=== PATIENT | male | born 1950 | race Hispanic/Latino ===

== ENCOUNTER 2016-10-22 09:58 | Emergency (ER) | payer BC, MEDICARE ==
[2016-10-22 09:59] VITALS: BMI 29.6
[2016-10-22 10:19] VITALS: TEMP 97.6
[2016-10-22] MEDS ORDERED: Oxycodone/Acetaminophen 5/325 mg Tab PO STA ×2 (10:38→11:56)
[2016-10-22 11:57] VITALS: BP 151/99; PULSE 78; RESP 20; O2SAT 96
--- NOTE | 2016-10-22 12:05 | ED PDOC ---
Arrival/HPI - General Chief Complaint: Trauma Time Seen by Provider: 10/22/16 10:17 Historian: Patient - History of Present Illness Narrative History of Present Illness (Text): 10/22/16 12:10 Patient reports injury to his left rib 4 days ago when he tried to ride a horse and fell off immediately. States that the pain is worse when taking a deep breath, with movement, and with palpation. Denies any head injury, LOC, nausea, vomiting, abdominal pain, shortness of breath, dyspnea, cough, fever, or any other injury. GREG Araiza Past Medical History - Provider Review Nursing Documentation Reviewed: Yes - Infectious Disease Hx of Infectious Diseases: None - Tetanus Immunization Tetanus Immunization: Unknown - Cardiac Hx Hypertension: Yes - Pulmonary Hx Respiratory Disorders: No - Neurological Other/Comment: diabetic neuropathy - HEENT Hx HEENT Disorder: No - Renal Hx Renal Disorder: No - Endocrine/Metabolic Hx Diabetes Mellitus Type 1: Yes - Hematological/Oncological Hx Blood Disorders: No - Integumentary Hx Dermatological Disorder: No - Musculoskeletal/Rheumatological Hx Musculoskeletal Disorders: No - Gastrointestinal Hx Gastrointestinal Disorders: No - Genitourinary/Gynecological Hx Genitourinary Disorders: No - Psychiatric Hx Psychophysiologic Disorder: No Hx Depression: No Hx Emotional Abuse: No Hx Physical Abuse: No Hx Substance Use: Yes - Surgical History Hx Orthopedic Surgery: Yes (right wrist) - Anesthesia Hx Anesthesia: Yes Hx Anesthesia Reactions: No Hx Malignant Hyperthermia: No - Suicidal Assessment Feels Threatened In Home Enviroment: No Family/Social History - Physician Review Nursing Documentation Reviewed: Yes Family/Social History: No Known Family HX Smoking Status: Former Smoker Hx Alcohol Use: No Hx Substance Use: Yes Substance used: Cocaine Hx Substance Use Treatment: No Allergies/Home Meds Allergies/Adverse Reactions: Allergies No Known Allergies Allergy (Verified 10/22/16 10:19) Review of Systems - Review of Systems Constitutional: Normal. absent: Fatigue, Weight Change, Fevers Respiratory: Normal. absent: SOB, Cough Cardiovascular: Normal, Chest Pain. absent: Palpitations Gastrointestinal: Normal. absent: Abdominal Pain, Stool Changes Musculoskeletal: Normal. absent: Arthralgias, Back Pain Skin: Normal. absent: Rash, Skin Lesions Physical Exam - Physical Exam Narrative Physical Exam (Text): 10/22/16 12:09 GENERAL APPEARANCE: Patient is awake, alert, oriented x 3, in moderate painful distress. SKIN: Warm, dry; (-) cyanosis. HEAD: (-) swelling and tenderness, with no palpable bony defect. EYES: (-) conjunctival pallor, (-) scleral icterus, (-) nystagmus. ENMT: Mucous membranes moist. (-) Cardona's sign. TMs: (-) blood. Nose: (- ) tenderness, (-) rhinorrhea. No oral trauma. Pharynx clear. Airway patent: (-) stridor. Full ROM of mandible without pain. NECK: (-) tenderness, (-) stiffness, (-) lymphadenopathy. CHEST AND RESPIRATORY: (+) chest wall tenderness to the L lateral lower ribs, ( -) ecchymosis, (-) edema, (-) step offs. Lungs: (-) rales, (-) rhonchi, (-) wheezes; breath sounds equal bilaterally. HEART AND CARDIOVASCULAR: (-) irregularity; (-) murmur, (-) gallop. ABDOMEN AND GI: Soft; (-) tenderness. BACK: (-) tenderness. EXTREMITIES: (-) deformity, (-) tenderness, (-) limitation of motion NEURO AND PSYCH: GCS=15. Mental status as above. 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 EOMI. (-) facial asymmetry. Tongue and uvula midline. Strength 5/5 in all extremities. No gross sensory deficits. DTRs symmetric. Vital Signs Temp Pulse Resp BP Pulse Ox 10/22/16 11:56 78 20 151/99 H 96 10/22/16 11:30 75 18 152/63 H 99 10/22/16 10:19 97.6 F 78 17 156/65 H 99 10/22/16 10:15 96 Medical Decision Making ED Course and Treatment: 10/22/16 12:01 66 yo M presents with L rib injury 4 days ago. Plan: -- XR L ribs -- Percocet po XR L ribs: no fracture, no pneumothorax, as read by PA Patient advised that official radiology read of XR is still pending and will call the patient if there is any discrepancy within 24 hours. X-ray results with the patient and his in great detail. Based on history, exam and diagnostic results plan will be for outpatient follow-up. Prescription provided. Patient states he fully agrees with and understands discharge instructions. States that he agrees with the plan and disposition. Verbalized and repeated discharge instructions and plan. I have given the patient opportunity to ask any additional questions. Follow up with primary care physician in 1-2 days without fail. Advised to take medication as prescribed. Return to the emergency room at any time for any new or worsening symptoms. - RAD Interpretation Radiology Orders: 10/22/16 10:37 RIBS LEFT & PA CHEST [RAD] Stat - Medication Orders Current Medication Orders: Discontinued Medications Oxycodone/Acetaminophen (Percocet 5/325 Mg Tab) 1 tab PO STAT STA Stop: 10/22/16 10:39 Last Admin: 10/22/16 11:02 Dose: 1 TAB Oxycodone/Acetaminophen (Percocet 5/325 Mg Tab) 1 tab PO STAT STA Stop: 10/22/16 11:57 Last Admin: 10/22/16 12:05 Dose: 1 TAB - PA / PODIATRY DOCTOR / Resident Statement /DO has reviewed & agrees with the documentation as recorded. Disposition/Present on Arrival - Present on Arrival Any Indicators Present on Arrival: Yes History of DVT/PE: No History of Uncontrolled Diabetes: Yes Urinary Catheter: No History of Decub. Ulcer: No History Surgical Site Infection Following: None - Disposition Have Diagnosis and Disposition been Completed?: Yes Diagnosis: Contusion of rib on left side Disposition: HOME/ ROUTINE Disposition Time: 12:03 Patient Plan: Discharge Condition: STABLE Discharge Instructions (ExitCare): Rib Contusion (ED) Print Language: SUDANESE Additional Instructions: Thank you for letting us take care of you today. You were treated for L rib contusion. The emergency medical care you received today was directed at your acute symptoms. If you were prescribed any medication, please fill it and take as directed. It may take several days for your symptoms to resolve. Return to the Emergency Department if your symptoms worsen, do not improve, or if you have any other problems. Please contact your doctor in 2 days for re-evaluation and follow up. Bring any paperwork you were given at discharge with you along with any medications you are taking to your follow up visit. Our treatment cannot replace ongoing medical care by a primary care provider (PCP) outside of the emergency department. Thank you for allowing the [facility] team to be part of your care today. If you had an X-Ray : A Radiologist will review the ED reading if any change in treatment is needed we will contact you. Prescriptions: oxyCODONE/Acetaminophen [Percocet 5/325 mg Tab] 1 ea PO QID #16 tab Referrals: Teodora COTTON,Pedro Taveras MD [Primary Care Provider] - Follow up with primary Forms: WORK NOTE
--- NOTE | 2016-10-22 13:40 | RAD ---
PROCEDURE: Radiographs of the Chest and Left Ribs. HISTORY: trauma COMPARISON: None available. TECHNIQUE: Frontal radiograph of the chest and multiple oblique radiographs of the left ribs were obtained. FINDINGS: LEFT RIBS: No fracture or focal lesion visualized. LUNGS: Clear. PLEURA: No pneumothorax or pleural fluid. CARDIOVASCULAR: Normal sized heart. No pulmonary vascular congestion. OTHER FINDINGS: None. IMPRESSION: Unremarkable radiographs of the chest and left ribs. No left rib fracture.
== END 2016-10-22 12:10 | disposition home or self-care (01) ==
LOC: ED 09:58
DX: S20.212A Contusion of left front wall of thorax, initial encounter (principal); V80.010A Animal-rider injured by fall from or being thrown from horse in noncollision accident, initial encounter; Z79.4 Long term (current) use of insulin; Z87.891 Personal history of nicotine dependence; I10 Essential (primary) hypertension

== ENCOUNTER 2017-09-22 11:38 | Inpatient (IN) | payer MEDICARE ==
[2017-09-22] MEDS ORDERED: Metoprolol 1 mg/ml Inj IVP STA (12:05)
--- NOTE | 2017-09-22 12:15 | ED PDOC ---
Arrival/HPI - General Chief Complaint: Palpitations Time Seen by Provider: 09/22/17 11:41 Historian: Patient - History of Present Illness Narrative History of Present Illness (Text): 09/22/17 12:14 A 67 year old male, whose past medical history includes diabetes and hypertension, presents to the emergency department complaining of shortness of breath. Patient reports he went to PMD office, who stated patient had a fast heart beat and "skipping beats". PMD advised patient to come to the emergency department for further evaluation. Describes heart rate as fluttering, denies having these symptoms in the past, just intermittently this past week. Patient went to [facility] about a week ago for stress test and echo, has an appointment on 09/27/17 for results. Patient denies any chest pain, hematuria, hematochezia or any other complaints at this time. PMD: Dr. Araiza [facility]: Dr. Johnson Medications: Metformin, Lisinopril, Gabapentin, Glipizide Symptom Onset: Sudden Symptom Course: Unchanged Activities at Onset: Rest Context: Home Past Medical History - Provider Review Nursing Documentation Reviewed: Yes - Infectious Disease Hx of Infectious Diseases: None - Tetanus Immunization Tetanus Immunization: Unknown - Cardiac Hx Congestive Heart Failure: Yes Hx Hypertension: Yes - Pulmonary Hx Respiratory Disorders: No - Neurological Other/Comment: diabetic neuropathy - HEENT Hx HEENT Disorder: No - Renal Hx Renal Disorder: No - Endocrine/Metabolic Hx Diabetes Mellitus Type 1: Yes - Hematological/Oncological Hx Blood Disorders: No - Integumentary Hx Dermatological Disorder: No - Musculoskeletal/Rheumatological Hx Musculoskeletal Disorders: No - Gastrointestinal Hx Gastrointestinal Disorders: No - Genitourinary/Gynecological Hx Genitourinary Disorders: No - Psychiatric Hx Psychophysiologic Disorder: No Hx Depression: No Hx Emotional Abuse: No Hx Physical Abuse: No Hx Substance Use: Yes - Surgical History Hx Orthopedic Surgery: Yes (right wrist) - Anesthesia Hx Anesthesia: Yes Hx Anesthesia Reactions: No Hx Malignant Hyperthermia: No - Suicidal Assessment Feels Threatened In Home Enviroment: No Family/Social History - Physician Review Nursing Documentation Reviewed: Yes Family/Social History: No Known Family HX Smoking Status: Former Smoker Hx Alcohol Use: No Hx Substance Use: Yes Substance used: Cocaine Hx Substance Use Treatment: No Allergies/Home Meds Allergies/Adverse Reactions: Allergies No Known Allergies Allergy (Verified 10/22/16 10:19) Home Medications: Home Meds Medication Instructions Recorded Confirmed Gabapentin [Neurontin] 300 mg PO DAILY 08/28/17 09/22/17 GlipiZIDE [Glucotrol] 5 mg PO DAILY 08/28/17 09/22/17 Lisinopril [Zestril] 10 mg PO DAILY 08/28/17 09/22/17 metFORMIN [glucOPHAGE] 500 mg PO BID 08/28/17 09/22/17 Review of Systems - Physician Review All systems were reviewed & negative as marked: Yes - Review of Systems Cardiovascular: absent: Chest Pain Genitourinary Male: absent: Hematuria Physical Exam - Physical Exam Narrative Physical Exam (Text): 09/22/17 12:13 Constitutional: No acute distress. Head: Normocephalic. Atraumatic. Eyes: PERRL. ENT: Moist mucous membranes. Neck: Supple. Cardiovascular: tachycardic. irregular rhythm. Chest: No tenderness. Respiratory: Clear to auscultation bilaterally. GI: Soft. Nontender. Nondistended. Back: No CVA tenderness. Musculoskeletal: trace pitting edema b/l LE. Skin: No rash. Neurologic: Alert, no focal deficit. Vital Signs Reviewed: Yes Vital Signs Temp Pulse Resp BP Pulse Ox 09/22/17 12:23 105 H 18 131/62 95 09/22/17 12:18 132 H 118/85 09/22/17 11:51 97.7 F 124 H 22 116/85 94 L Appearance: Positive for: Well-Appearing, Non-Toxic, Comfortable Pain Distress: None Mental Status: Positive for: Alert and Oriented X 3 Medical Decision Making ED Course and Treatment: 09/22/17 12:13 Impression: A 67 year old male with shortness of breath. Plan: -- EKG -- Chest xray -- labs -- Reassess and disposition Prior Visits: Notes and results from previous visits were reviewed. Patient was last seen in the emergency department on 10/22/16 for evaluation of left rib injury and pain. Progress Notes: 09/22/17 12:53 EKG: Ordered, reviewed, and independently interpreted the EKG. Rate : 130 BPM Rhythm : a fib Interpretation : No ST elevations, right bundle branch block 09/22/17 13:01 chest xray- Creator : Sury Silvestre MD IMPRESSION: No active pulmonary disease. 09/22/17 13:06 Metoprolol 5 IV administered, rate improved to 105, oral dose administered. Dr. Johnson consult placed. Dr. Araiza accepts to his service. - Lab Interpretations Lab Results: 09/22/17 12:10 09/22/17 12:10 Lab Results 09/22/17 12:10: Sodium 139, Potassium 4.1, Chloride 99, Carbon Dioxide 24, Anion Gap 19, BUN 24 H, Creatinine 0.9, Est GFR ( Amer) > 60, Est GFR ( Non-Af Amer) > 60, Random Glucose 284 H, Calcium 9.9, Total Bilirubin 1.0, AST 42, ALT 82 H, Alkaline Phosphatase 90, Total Creatine Kinase 40, Troponin I < 0.01, NT-Pro-B Natriuret Pep 3150 H, Total Protein 7.5, Albumin 4.3, Globulin 3.2, Albumin/Globulin Ratio 1.4 09/22/17 12:10: PT 12.7 H, INR 1.10 H, APTT 30.5 09/22/17 12:10: WBC 10.8, RBC 4.86, Hgb 15.4, Hct 47.0, MCV 96.7, MCH 31.7, MCHC 32.8, RDW 12.3, Plt Count 196, MPV 13.3 H, Gran % 72.8 H, Lymph % (Auto) 19.6 L, Mora % (Auto) 6.7 H, Eos % (Auto) 0.7 L, Baso % (Auto) 0.2, Gran # 7.87 H, Lymph # (Auto) 2.1, Mora # (Auto) 0.7 H, Eos # (Auto) 0.1, Baso # (Auto) 0.02 I have reviewed the lab results: Yes - RAD Interpretation Radiology Orders: 09/22/17 12:02 CHEST PORTABLE [RAD] Stat - EKG Interpretation Interpreted by ED Physician: Yes Type: 12 lead EKG - Medication Orders Current Medication Orders: Discontinued Medications Enoxaparin Sodium (Lovenox) 70 mg SC STAT STA PRN Reason: Protocol Stop: 09/22/17 12:49 Metoprolol Tartrate (Lopressor) 5 mg IVP STAT STA Stop: 09/22/17 12:06 Last Admin: 09/22/17 12:18 Dose: 5 mg IVP Administration Document 09/22/17 12:18 EQ (Rec: 09/22/17 12:18 EQ [id number]) Charges for Administration # of IVP Administrations 1 MAR Pulse and Blood Pressure Document 09/22/17 12:18 EQ (Rec: 09/22/17 12:18 EQ [id number]) Pulse Pulse Rate (60-90) 132 Blood Pressure Blood Pressure (100/60-150/90) 118/85 Metoprolol Tartrate (Lopressor) 25 mg PO STAT STA Stop: 09/22/17 12:32 - Scribe Statement The provider has reviewed the documentation as recorded by the Dineshibreji Potts Provider Scribe Attestation: All medical record entries made by the Scribe were at my direction and personally dictated by me. I have reviewed the chart and agree that the record accurately reflects my personal performance of the history, physical exam, medical decision making, and the department course for this patient. I have also personally directed, reviewed, and agree with the discharge instructions and disposition. Disposition/Present on Arrival - Present on Arrival Any Indicators Present on Arrival: Yes History of DVT/PE: No History of Uncontrolled Diabetes: Yes Urinary Catheter: No History of Decub. Ulcer: No History Surgical Site Infection Following: None - Disposition Have Diagnosis and Disposition been Completed?: Yes Diagnosis: New onset atrial fibrillation Disposition: HOSPITALIZED Disposition Time: 12:57 Patient Plan: Admission, Telemetry Condition: FAIR Referrals: Teodora COTTON,Pedro Taveras MD [Primary Care Provider] - Follow up with primary Forms: [employer] (Yakut)
[2017-09-22 12:19] LABS: BASO # 0.02 K/mm3 (0.0-2.0); BASO % 0.2 % (0.0-3.0); EOS # 0.1 (0.0-0.7); EOS % 0.7 % (1.5-5.0); GRAN # 7.87 (1.4-6.5); GRAN % 72.8 % (50.0-68.0); HEMOGLOBIN 15.4 g/dL (14.0-18.0); LYMPH # 2.1 (1.2-3.4); LYMPH % 19.6 % (22.0-35.0); MEAN CELL VOLUME 96.7 fl (80.0-105.0); MEAN CORPUSCULAR HEMOGLOBIN 31.7 pg (25.0-35.0); MEAN CORPUSCULAR HGB CONC 32.8 g/dl (31.0-37.0); MEAN PLATELET VOLUME 13.3 fl (7.0-11.0); MONO # 0.7 (0.1-0.6); MONO % 6.7 % (1.0-6.0); RBC 4.86 10^6/uL (3.5-6.1); RED CELL DISTRIBUTION WIDTH 12.3 % (11.5-14.5); WHITE BLOOD COUNT 10.8 10^3/ul (4.5-11.0)
[2017-09-22 12:29] LABS: INR 1.1 (0.93-1.08); PARTIAL THROMBOPLASTIN TIME 30.5 Seconds (25.1-36.5); PROTHROMBIN TIME 12.7 SECONDS (9.4-12.5)
[2017-09-22 12:32] LABS: ALB/GLOB RATIO 1.4 (1.1-1.8); ALBUMIN 4.3 g/dL (3.0-4.8); ALT/SGPT 82 U/L (7-56); AST/SGOT 42 U/L (17-59); BLOOD UREA NITROGEN 24 mg/dL (7-21); CALCIUM 9.9 mg/dL (8.4-10.5); GFR AFRICAN-AMERICAN > 60; GFR NON-AFRICAN AMERICAN > 60
[2017-09-22 12:44] LABS: B-TYPE NATRIURETIC PEPTIDE 3150 pg/mL (0-450); TROPONIN I < 0.01 ng/mL
[2017-09-22] MEDS ORDERED: Enoxaparin 80 mg Syringe SC STA (12:48)
--- NOTE | 2017-09-22 12:59 | RAD ---
HISTORY: Palpitations COMPARISON: 08/10/2017. FINDINGS: LUNGS: The lungs are clear. PLEURA: No significant pleural effusion identified, no pneumothorax apparent. CARDIOVASCULAR: Normal. OSSEOUS STRUCTURES: No significant abnormalities. VISUALIZED UPPER ABDOMEN: Normal. OTHER FINDINGS: None. IMPRESSION: No active pulmonary disease.
--- NOTE | 2017-09-22 15:21 | CON ---
DATE: 09/22/2017 CARDIOLOGY CONSULTATION HISTORY OF PRESENT ILLNESS: The patient is a 67-year-old male who presents with progressive dyspnea for the past 2 weeks. No chest pain noted. The patient's past medical history includes a history of hypertension, diabetes mellitus and probable hypercholesterolemia. He is a long-time smoker of many years and stopped over the past couple of years. He was found to be in atrial fibrillation in the emergency room, which is new. SOCIAL HISTORY: The patient is a former heavy smoker. REVIEW OF SYSTEMS: Fourteen-point review of systems was reviewed in detail. Negative edema. Positive shortness of breath. Negative angina. No orthopnea. No PND. PHYSICAL EXAMINATION: VITAL SIGNS: Blood pressure is 131/62 with the heart rate is atrial fibrillation up to 130s. NECK: Negative JVD. LUNGS: Bilateral rhonchi. HEART: Reveals S1, S2. EXTREMITIES: Without edema. EKG shows atrial fibrillation with a right bundle-branch block and a left anterior hemiblock. LABORATORY DATA: BUN and creatinine 24 and 0.9. ProBNP is 3150. Hemoglobin is 15. ECHOCARDIOGRAM: Echocardiogram reveals a dilated left atrium, ejection fraction is 50%. The RVSP is 67 consistent with moderate pulmonary hypertension. Stress test that was performed in 08/2017 reveals no active ischemia with an EF of 51%. IMPRESSION: 1. New-onset atrial fibrillation. 2. Early cardiomyopathy. 3. Dyspnea. 4. Mild acute systolic congestive heart failure. 5. Diabetes mellitus. 6. Hypercholesterolemia. 7. Chronic obstructive pulmonary disease. PLAN: Given these findings, we will start the patient on Eliquis today. We will give a dose of Lasix given his elevated ProBNP and his dyspnea. We will start him on p.o. Cardizem to help control the heart rate. Alban Johnson MD
[2017-09-22 16:19] VITALS: BMI 24.3
[2017-09-22] MEDS ORDERED: Influenza Vaccine 60 mcg/0.5 mL SYR (4YR UP) IM ONE (16:19)
[2017-09-22] MEDS ORDERED: Pneumococcal 23-Valent Vaccine IM ONE (16:19)
[2017-09-23 06:21] VITALS: PULSE 93; RESP 20; TEMP 97.7; O2SAT 97
[2017-09-23 09:30] VITALS: BP 90/63
--- NOTE | 2017-09-23 09:37 | CARD ---
APPROVED REPORT EKG Measurement Heart [id number] <Conclusion> Atrial fibrillation with rapid ventricular response with premature ventricular or aberrantly conducted complexes Left axis deviation Right bundle branch block Inferior infarct, age undetermined Abnormal ECG
[2017-09-23] MEDS ORDERED: Insulin Reg-LOW-Coverage SC SCH (11:30)
--- NOTE | 2017-09-23 15:02 | PN ---
DATE: 09/23/2017 REASON FOR DICTATION: Covering Dr. Alban Johnson. REASON FOR CONSULTATION AND FOLLOWUP: AFib. SUBJECTIVE: Patient denies any chest pain, shortness of breath or any palpitation. OBJECTIVE: GENERAL: Not in apparent distress. VITAL SIGNS: As follows: Temperature afebrile, heart rate 92, blood pressure 103/73. HEENT: PERRLA. Extraocular muscles intact. NECK: Supple. No carotid bruit or thyromegaly. CHEST: Clear to auscultation. HEART: S1, S2 regular. ABDOMEN: Soft. EXTREMITIES: Clubbing and cyanosis negative. LABORATORY DATA: Blood workup as follows: WBC 10.6, hemoglobin 15.4, hematocrit 47.0, platelet count 196. Chemistry shows sodium 139, potassium 4.0, chloride 99, carbon dioxide 24, anion gap of 19, BUN 24, creatinine 0.9, troponin 0.01, BNP 3150. IMPRESSION: Atrial fibrillation, heavy ex-tobacco abuse, mild acute systolic dysfunction, mild cardiomyopathy, dyspnea, diabetes, hypertension, hyperlipidemia, chronic obstructive pulmonary disease. RECOMMENDATION: Continue metoprolol 25 b.i.d., continue Cardizem 60 mg t.i.d., continue apixaban, continue gentle diuretics, continue lisinopril. Upon discharge, patient will be followed up with Dr. Johnson and Dr. Araiza. Discussed with the patient. The patient is willing to go home. Ary Polanco MD
--- NOTE | 2017-09-24 09:52 | DS ---
SUBJECTIVE: The patient was seen yesterday in the office, diagnosed with a rapid heart rate, in atrial fibrillation and was sent to the Emergency Room from which he was admitted. PHYSICAL EXAMINATION: VITAL SIGNS: Temperature of 97.7, blood pressure of 103/73, respiratory rate of 20 with an O2 saturation of 97% on room air. HEENT: PERRLA. EOMI with no icterus. NECK: Supple with a full range of motion. No bruits are present. LUNGS: Clear bilaterally. HEART: Irregularly irregular with no murmurs, rubs or gallops. ABDOMEN: Benign. NEUROLOGICAL: The patient is intact. PAST MEDICAL HISTORY: Remarkable for diabetes. ALLERGIES: HE HAS NO KNOWS ALLERGIES. SOCIAL HISTORY: He is a former smoker and uses alcohol socially. IMPRESSION: At this time is: 1. Atrial fibrillation of new onset with rapid ventricular response. 2. Diabetes mellitus. The patient was placed on Cardizem CD 120 and Eliquis 5 mg twice a day. He will be followed in the office in a week. DISCHARGE DIAGNOSES: As previously stated: 1. Atrial fibrillation. 2. Diabetes mellitus. Sameer Araiza MD
== END 2017-09-23 11:07 | disposition home or self-care (01) | DRG 308 ==
LOC: ED 11:38 → ERH 13:00 → 2RNO 14:32
PROVIDERS: ADMIT Internal Medicine; ATTEND Internal Medicine
DX: I48.91 Unspecified atrial fibrillation (principal); I50.21 Acute systolic (congestive) heart failure; E10.40 Type 1 diabetes mellitus with diabetic neuropathy, unspecified; I27.20 Pulmonary hypertension, unspecified; I42.9 Cardiomyopathy, unspecified; E78.00 Pure hypercholesterolemia, unspecified; E78.5 Hyperlipidemia, unspecified; F17.200 Nicotine dependence, unspecified, uncomplicated; I11.0 Hypertensive heart disease with heart failure; J44.9 Chronic obstructive pulmonary disease, unspecified; Z79.01 Long term (current) use of anticoagulants; I45.10 Unspecified right bundle-branch block

== ENCOUNTER 2017-09-27 06:27 | Inpatient (IN) | payer MEDICARE, OTHER ==
--- NOTE | 2017-09-27 07:24 | ED PDOC ---
Arrival/HPI - General Chief Complaint: Shortness Of Breath Time Seen by Provider: 09/27/17 07:07 Historian: Patient - History of Present Illness Narrative History of Present Illness (Text): 09/27/17 07:25 67 year old male, whose past medical history includes atrial fibrillation on warfarin, Diabetes, COPD, and hypertension, who presents to the emergency department complaining of shortness of breath for 3 days. Patient hasn't slept since Monday due to shortness of breath, states worse when laying flat and notes increased swelling of the legs. Patient was discharged from hospital on Monday for new onset afib, felt well at discharge. Patient denies any fevers, chest pain, back pain, headache, nausea, vomiting, diarrhea or any other complaints. Time/Duration: < week (3 days) Symptom Onset: Gradual Symptom Course: Unchanged Activities at Onset: Light Context: Home Past Medical History - Provider Review Nursing Documentation Reviewed: Yes - Infectious Disease Hx of Infectious Diseases: None - Tetanus Immunization Tetanus Immunization: Unknown - Cardiac Hx Cardiac Disorders: Yes Hx Cardiac Arrhythmia: Yes (NEW ONSET AFIB 09-22-17) Hx Congestive Heart Failure: Yes Hx Hypertension: Yes - Pulmonary Hx Respiratory Disorders: Yes (SMOKED PPD CIGARETTES QUIT) - Neurological Hx Neurological Disorder: Yes Other/Comment: diabetic neuropathy - HEENT Hx HEENT Disorder: No - Renal Hx Renal Disorder: No - Endocrine/Metabolic Hx Diabetes Mellitus Type 1: Yes - Hematological/Oncological Hx Blood Disorders: No - Integumentary Hx Dermatological Disorder: No - Musculoskeletal/Rheumatological Hx Musculoskeletal Disorders: Yes Hx Falls: Yes Hx Fractures: Yes (RIGHT WRIST ORTHO SX.) - Gastrointestinal Hx Gastrointestinal Disorders: No - Genitourinary/Gynecological Hx Genitourinary Disorders: No - Psychiatric Hx Psychophysiologic Disorder: No Hx Depression: No Hx Emotional Abuse: No Hx Physical Abuse: No Hx Substance Use: No - Surgical History Hx Orthopedic Surgery: Yes (right wrist) - Anesthesia Hx Anesthesia: Yes Hx Anesthesia Reactions: No Hx Malignant Hyperthermia: No - Suicidal Assessment Feels Threatened In Home Enviroment: No Family/Social History - Physician Review Nursing Documentation Reviewed: Yes Family/Social History: No Known Family HX Smoking Status: Former Smoker Hx Alcohol Use: Yes (SOCIALLY) Hx Substance Use: No Substance used: Cocaine Hx Substance Use Treatment: No Allergies/Home Meds Allergies/Adverse Reactions: Allergies No Known Allergies Allergy (Verified 09/27/17 06:37) Home Medications: Home Meds Medication Instructions Recorded Confirmed Gabapentin [Neurontin] 300 mg PO TID 08/28/17 09/27/17 GlipiZIDE [Glucotrol] 5 mg PO BID 08/28/17 09/27/17 metFORMIN [glucOPHAGE] 1,000 mg PO BID 08/28/17 09/27/17 [id number] CD [Cardizem CD] 180 mg PO DAILY 09/23/17 09/27/17 Aspirin [Ecotrin] 81 mg PO DAILY 09/27/17 09/27/17 Esomeprazole Magnesium [Nexium] 40 mg PO DAILY 09/27/17 09/27/17 Furosemide [Lasix] 40 mg PO DAILY 09/27/17 09/27/17 Warfarin Sodium [Jantoven] 5 mg PO DAILY 09/27/17 09/27/17 Review of Systems - Physician Review All systems were reviewed & negative as marked: Yes - Review of Systems Constitutional: absent: Fevers Cardiovascular: absent: Chest Pain Physical Exam - Physical Exam Narrative Physical Exam (Text): Gen: NAD Head: NC/AT Eyes: PERRL ENT: MMM Neck: Supple Chest: No tenderness CV: Borderline tachycardia Lungs: Mild bibasilar crackles. Abd: Soft, NT Back: No CVA tenderness Extremities: No tenderness. Bilateral pitting edema to lower extremities. Skin: No rash Neuro: Alert, no focal deficit Vital Signs Reviewed: Yes Vital Signs Temp Pulse Resp BP Pulse Ox 09/27/17 09:19 116 H 28 H 157/94 H 90 L 09/27/17 09:06 122 H 157/94 H 09/27/17 07:39 143/95 H 09/27/17 06:47 97.5 F L 09/27/17 06:44 128 H 26 H 143/78 93 L 09/27/17 06:30 35 H 96 Medical Decision Making ED Course and Treatment: 09/27/17 07:39 Impression: 67 year old male presents to the ED complaining of shortness of breath for 3 days. Hypoxic on room air to 90% Differential Diagnosis included but are not limited to: PE (hypoxia with subtherapeutic INR vs. CHF vs. PNA Plan: -- CXR PA/LAT -- Labs -- Cardiac Enzymes -- ProBNP -- Lasix -- Cardizem home dose -- Reassess and disposition Prior Visits: Notes and results from previous visits were reviewed. On 09/22/2017 patient came in complaining of shortness of breath. Patient was discharged home. Notes: 09/27/17 08:36 D dimer negative. Elevated proBNP. Case discussed with Dr. Mcguire, who is aware and agrees with plan. Accepts patient into his service. Patient admitted to Telemetry for worsening shortness of breath. Consult placed for Dr. Johnson. 09/27/17 09:18 CXR reviewed, shows: LUNGS: No active pulmonary disease. PLEURA: No significant pleural effusion identified. No pneumothorax apparent. CARDIOVASCULAR: Moderate cardiomegaly OSSEOUS STRUCTURES: No significant abnormalities. VISUALIZED UPPER ABDOMEN: Normal. OTHER FINDINGS: None. IMPRESSION: No active disease. - Lab Interpretations Lab Results: 09/27/17 06:30 09/27/17 06:30 Lab Results 09/27/17 06:30: D-Dimer, Quantitative < 200 09/27/17 06:30: PT 13.0 H, INR 1.13 H, APTT 31.0 09/27/17 06:30: Sodium 138, Potassium 4.3, Chloride 100, Carbon Dioxide 25, Anion Gap 18, BUN 21, Creatinine 0.9, Est GFR ( Amer) > 60, Est GFR (Non- Af Amer) > 60, Random Glucose 331 H*, Calcium 9.7, Total Bilirubin 1.1, AST 36, ALT 71 H, Alkaline Phosphatase 116, Total Creatine Kinase 40, Troponin I 0.01, NT-Pro-B Natriuret Pep 3220 H, Total Protein 7.4, Albumin 4.3, Globulin 3.1, Albumin/Globulin Ratio 1.4 09/27/17 06:30: WBC 12.9 H, RBC 5.04, Hgb 16.0, Hct 49.1, MCV 97.4, MCH 31.7, MCHC 32.6, RDW 12.7, Plt Count 199, MPV 13.6 H, Gran % 78.7 H, Lymph % (Auto) 12.4 L, Atkinson % (Auto) 8.2 H, Eos % (Auto) 0.5 L, Baso % (Auto) 0.2, Gran # 10.11 H, Lymph # (Auto) 1.6, Atkinson # (Auto) 1.1 H, Eos # (Auto) 0.1, Baso # (Auto ) 0.02 - RAD Interpretation Radiology Orders: 09/27/17 07:25 CHEST TWO VIEWS (PA/LAT) [RAD] Stat - Medication Orders Current Medication Orders: Discontinued Medications Diltiazem HCl (Cardizem Cd) 180 mg PO STAT STA Stop: 09/27/17 08:46 Last Admin: 09/27/17 09:06 Dose: 180 mg MAR Pulse and Blood Pressure Document 09/27/17 09:06 [facility] (Rec: 09/27/17 09:06 [id number] Pulse Pulse Rate (60-90) 122 Blood Pressure Blood Pressure (100/60-150/90) 157/94 Furosemide (Lasix) 40 mg IVP STAT STA Stop: 09/27/17 07:26 Last Admin: 09/27/17 07:39 Dose: 40 mg MAR Blood Pressure Document 09/27/17 07:39 [facility] (Rec: 09/27/17 07:45 [id number]) Blood Pressure Blood Pressure (100/60-150/90) 143/95 IVP Administration Document 09/27/17 07:39 [facility] (Rec: 09/27/17 07:45 [id number]) Charges for Administration # of IVP Administrations 1 Metformin HCl (Glucophage) 1,000 mg PO STAT STA Stop: 09/27/17 08:47 Last Admin: 09/27/17 09:06 Dose: 1,000 mg - Scribe Statement The provider has reviewed the documentation as recorded by the Scribreji Sampson All medical record entries made by the Myke were at my direction and personally dictated by me. I have reviewed the chart and agree that the record accurately reflects my personal performance of the history, physical exam, medical decision making, and the department course for this patient. I have also personally directed, reviewed, and agree with the discharge instructions and disposition. Disposition/Present on Arrival - Present on Arrival Any Indicators Present on Arrival: Yes History of DVT/PE: No History of Uncontrolled Diabetes: Yes Urinary Catheter: No History of Decub. Ulcer: No History Surgical Site Infection Following: None - Disposition Have Diagnosis and Disposition been Completed?: Yes Diagnosis: CHF (congestive heart failure), Hypoxia Disposition: HOSPITALIZED Disposition Time: 08:43 Patient Plan: Admission Condition: FAIR
[2017-09-27 07:50] LABS: BASO # 0.02 K/mm3 (0.0-2.0); BASO % 0.2 % (0.0-3.0); EOS # 0.1 (0.0-0.7); EOS % 0.5 % (1.5-5.0); GRAN # 10.11 (1.4-6.5); GRAN % 78.7 % (50.0-68.0); LYMPH # 1.6 (1.2-3.4); LYMPH % 12.4 % (22.0-35.0); MEAN CELL VOLUME 97.4 fl (80.0-105.0); MEAN CORPUSCULAR HEMOGLOBIN 31.7 pg (25.0-35.0); MEAN CORPUSCULAR HGB CONC 32.6 g/dl (31.0-37.0); MEAN PLATELET VOLUME 13.6 fl (7.0-11.0); MONO # 1.1 (0.1-0.6); MONO % 8.2 % (1.0-6.0); RBC 5.04 10^6/uL (3.5-6.1); RED CELL DISTRIBUTION WIDTH 12.7 % (11.5-14.5); WHITE BLOOD COUNT 12.9 10^3/ul (4.5-11.0)
[2017-09-27 07:55] LABS: INR 1.13 (0.93-1.08)
[2017-09-27 08:02] LABS: ALB/GLOB RATIO 1.4 (1.1-1.8); ALBUMIN 4.3 g/dL (3.0-4.8); ALT/SGPT 71 U/L (7-56); AST/SGOT 36 U/L (17-59); BLOOD UREA NITROGEN 21 mg/dL (7-21); CALCIUM 9.7 mg/dL (8.4-10.5); GFR AFRICAN-AMERICAN > 60; GFR NON-AFRICAN AMERICAN > 60
[2017-09-27 08:06] LABS: B-TYPE NATRIURETIC PEPTIDE 3220 pg/mL (0-450); TROPONIN I 0.01 ng/mL
[2017-09-27] MEDS ORDERED: diltiaZEM 180 mg/24 Hours CD Cap PO STA (08:45)
--- NOTE | 2017-09-27 09:16 | RAD ---
HISTORY: dyspnea COMPARISON: 09/22/2017 TECHNIQUE: Chest PA and lateral FINDINGS: LUNGS: No active pulmonary disease. PLEURA: No significant pleural effusion identified. No pneumothorax apparent. CARDIOVASCULAR: Moderate cardiomegaly OSSEOUS STRUCTURES: No significant abnormalities. VISUALIZED UPPER ABDOMEN: Normal. OTHER FINDINGS: None. IMPRESSION: No active disease.
[2017-09-27] MEDS ORDERED: Albuterol-Ipratrop 3 mg / 0.5 (3 ml) UD IH PRN (09:42)
[2017-09-27] MEDS: Albuterol-Ipratrop 3 mg / 0.5 (3 ml) UD IH SCH ×2 (10:39→11:09)
[2017-09-27] MEDS: Pantoprazole 40 mg EC Tab PO SCH (10:39)
[2017-09-27] MEDS ORDERED: Insulin Reg-MEDIUM-Coverage SC SCH (11:30)
[2017-09-27] MEDS: Ipratropium 0.02% Inhal Soln (0.5 mg/2.5 ml) UD IH SCH ×2 (13:26→20:51)
[2017-09-27 15:14] VITALS: BMI 28.8
[2017-09-27] MEDS ORDERED: Pneumococcal 23-Valent Vaccine IM ONE (15:14)
[2017-09-27] MEDS ORDERED: Influenza Vaccine 60 mcg/0.5 mL SYR (4YR UP) IM ONE (15:14)
--- NOTE | 2017-09-27 17:13 | CARD ---
APPROVED REPORT EKG Measurement Heart [id number] <Conclusion> Atrial fibrillation with rapid ventricular response Left axis deviation Right bundle branch block Inferior infarct, age undetermined Abnormal ECG
[2017-09-28] MEDS: Ipratropium 0.02% Inhal Soln (0.5 mg/2.5 ml) UD IH SCH ×5 (01:21→19:11)
[2017-09-28 07:04] LABS: BASO # 0.02 K/mm3 (0.0-2.0); BASO % 0.2 % (0.0-3.0); EOS # 0.1 (0.0-0.7); EOS % 1.4 % (1.5-5.0); GRAN # 6.29 (1.4-6.5); GRAN % 69.1 % (50.0-68.0); HEMOGLOBIN 14.3 g/dL (14.0-18.0); LYMPH # 1.9 (1.2-3.4); LYMPH % 20.7 % (22.0-35.0); MEAN CELL VOLUME 97.4 fl (80.0-105.0); MEAN CORPUSCULAR HEMOGLOBIN 30.5 pg (25.0-35.0); MEAN CORPUSCULAR HGB CONC 31.3 g/dl (31.0-37.0); MEAN PLATELET VOLUME 13.7 fl (7.0-11.0); MONO # 0.8 (0.1-0.6); MONO % 8.6 % (1.0-6.0); RBC 4.69 10^6/uL (3.5-6.1); RED CELL DISTRIBUTION WIDTH 12.6 % (11.5-14.5); WHITE BLOOD COUNT 9.1 10^3/ul (4.5-11.0)
[2017-09-28 07:21] LABS: ALB/GLOB RATIO 1.3 (1.1-1.8); ALBUMIN 3.7 g/dL (3.0-4.8); ALT/SGPT 61 U/L (7-56); AST/SGOT 30 U/L (17-59); BLOOD UREA NITROGEN 25 mg/dL (7-21); CALCIUM 9.2 mg/dL (8.4-10.5); GFR AFRICAN-AMERICAN > 60; GFR NON-AFRICAN AMERICAN > 60
[2017-09-28 07:28] LABS: INR 1.19 (0.93-1.08); PROTHROMBIN TIME 13.7 SECONDS (9.4-12.5)
[2017-09-28] MEDS ORDERED: Ipratropium 0.02% Inhal Soln (0.5 mg/2.5 ml) UD IH SCH (08:00)
[2017-09-28] MEDS: Pantoprazole 40 mg EC Tab PO SCH (09:14)
[2017-09-28] MEDS: diltiaZEM 180 mg/24 Hours CD Cap PO SCH (09:15)
--- NOTE | 2017-09-28 09:57 | HP ---
HISTORY OF PRESENT ILLNESS: The patient is a 67 year old man with a past medical history of hypertension, hyperlipidemia, type 2 diabetes mellitus and newly diagnosed AFib who presented to [facility] ED for evaluation of a 3 day history of progressively worsening dyspnea. The patient was recently discharged from [facility] after he was admitted for management of new-onset AFib. He was started on Diltiazem CD 180 mg p.o. daily and was doing well however approximately 2 days after discharge he was noted to experience palpitations and subsequently developed dyspnea with exertion which progressed to dyspnea at rest. The patient also reported cough associated with the symptoms which was intermittently productive of clear sputum but he denied fevers, chills or rigors. Upon arrival to the ED he was noted to be tachycardic with a pulse in the 120s and tachypneic with a respiratory rate of 35. He was placed on supplemental oxygen, started on bronchodilators and received Lasix 40 mg IV and Diltiazem 180 p.o. stat and subsequently admitted to the telemetry becerra for continued management of AFib with RVR. PAST MEDICAL HISTORY: As per HPI. PAST SURGICAL HISTORY: As per HPI. ALLERGIES: NKDA. MEDICATIONS: Diltiazem CD 180 mg p.o. daily, Warfarin 5 mg p.o. daily, Metformin 1000 mg p.o. b.i.d., Glipizide 5 mg p.o. b.i.d., Gabapentin 300 mg p.o. t.i.d., Aspirin 81 mg p.o. daily, Nexium 40 mg p.o. daily and Lasix 40 mg p.o. daily. FAMILY HISTORY: Noncontributory. SOCIAL HISTORY: The patient reports a 30 pack year smoking history and social alcohol use. He denies illicit drug abuse. REVIEW OF SYSTEMS: A 14-point review of systems is negative except as per HPI. PHYSICAL EXAMINATION: VITAL SIGNS: Temperature 98, pulse 84, blood pressure 113/83, respiratory rate 20, oxygen saturation 97% on 2 L nasal cannula. GENERAL: No apparent distress. HEENT: PERRL, EOMI. No scleral icterus. No conjunctival pallor. NECK: Supple with full range of motion. No JVD. No bruits. LUNGS: Decreased breath sounds at bases with crackles to the right lower lobe. CARDIOVASCULAR: Irregularly irregular. Normal S1 and S2. ABDOMEN: Normoactive bowel sounds. Soft, nontender and nondistended. EXTREMITIES: No edema. NEUROLOGIC: Awake, alert and oriented x 3. No focal motor deficits. LABORATORY DATA: CBC reviewed and unremarkable. CMP reviewed and unremarkable with the exception of a glucose of 299. Procalcitonin less than 0.05. INR 1.19. IMAGING STUDIES: Chest x-ray demonstrates no active disease. ASSESSMENT: The patient is a 67 year old man with a past medical history of new-onset AFib, hypertension and type 2 diabetes mellitus who presented for evaluation of a 3 day history of progressively worsening dyspnea with exertion and was admitted for management of AFib with RVR. PLAN: 1. AFib with RVR. The patient remains rate controlled at present. We will discontinue Diltiazem 60 mg p.o. t.i.d. and restart Diltiazem CD 180 mg p.o. daily. Continue Aspirin 81 mg p.o. daily and warfarin 7.5 mg p.o. daily. Continue to monitor INR daily with goal INR of 2-3. Input from Dr. Johnson noted and appreciated. 2. Hypertension. Blood pressure remains satisfactory. Continue with Diltiazem CD 180 mg p.o. daily and Lisinopril 5 mg p.o. daily. 3. Type 2 diabetes mellitus. The patient declines insulin coverage. We will continue to monitor fingersticks before every meals and at bedtime and continue Glipizide 5 mg p.o. b.i.d. and Metformin 1000 mg p.o. b.i.d. 4. GERD. Continue Protonix 40 mg p.o. daily. 5. Insomnia. We will start Ambien 10 mg p.o. at bedtime. 6. Prophylaxis. Continue Protonix 40 mg p.o. daily for GI prophylaxis. DVT prophylaxis is not indicated as the patient is ambulatory. CODE STATUS: Full code. Pedro Araiza MD [id number]
--- NOTE | 2017-09-28 10:25 | CON ---
DATE: 09/27/2017 CARDIOLOGY CONSULTATION HISTORY OF PRESENT ILLNESS: The patient is a 67-year-old male who presents with dyspnea. The patient's past medical history is notable for diabetes mellitus, hypertension, COPD as well as previous CHF in the past. His EKG in the past revealed a left bundle-branch block with left anterior hemiblock as well as a right bundle-branch block. The patient is an active smoker and stopped 5 years ago. He smoked for 45 years. He recently underwent a stress test that showed no ischemia with the ejection fraction collaborated by the echocardiogram reveals an ejection fraction of 50%. REVIEW OF SYSTEMS: A 14-point review of systems is reviewed in detail. Other than dyspnea, and trace pedal edema, there are no other cardiac symptomatology. PHYSICAL EXAMINATION VITAL SIGNS: Blood pressure is 149/98, the heart rate is in the 90s. NECK: Negative JVD. LUNGS: Decreased breath sounds. HEART: Reveals S1, S2. EXTREMITIES: Trace edema. EKG shows atrial fibrillation with right bundle-branch block and left anterior hemiblock. LABORATORY DATA: Troponins are negative. ProBNP is 3220, glucose is 331, hemoglobin is 16. IMPRESSION: 1. Acute systolic congestive heart failure. 2. Chronic obstructive pulmonary disease. 3. Borderline and possible early cardiomyopathy with an ejection fraction of 50%. 4. Hypertension. 5. Diabetes mellitus. PLAN: Given these findings, we will increase his Lasix to 40 IV b.i.d. for the next 24 hours. We will continue his bronchodilators. Alban Johnson MD
[2017-09-28] MEDS: Insulin Reg-LOW-Coverage SC SCH ×2 (18:01→23:36)
[2017-09-29] MEDS: Ipratropium 0.02% Inhal Soln (0.5 mg/2.5 ml) UD IH SCH ×6 (01:15→22:09)
[2017-09-29 07:43] LABS: BASO # 0.02 K/mm3 (0.0-2.0); BASO % 0.2 % (0.0-3.0); EOS # 0.2 (0.0-0.7); EOS % 1.2 % (1.5-5.0); GRAN # 9.1 (1.4-6.5); GRAN % 73.1 % (50.0-68.0); HEMOGLOBIN 15.8 g/dL (14.0-18.0); LYMPH # 2.4 (1.2-3.4); LYMPH % 19.1 % (22.0-35.0); MEAN CELL VOLUME 97.2 fl (80.0-105.0); MEAN CORPUSCULAR HEMOGLOBIN 31.2 pg (25.0-35.0); MEAN PLATELET VOLUME 13.6 fl (7.0-11.0); MONO # 0.8 (0.1-0.6); MONO % 6.4 % (1.0-6.0); RBC 5.07 10^6/uL (3.5-6.1); RED CELL DISTRIBUTION WIDTH 12.5 % (11.5-14.5); WHITE BLOOD COUNT 12.5 10^3/ul (4.5-11.0)
[2017-09-29 07:58] LABS: PROTHROMBIN TIME 14.8 SECONDS (9.4-12.5)
[2017-09-29 07:59] LABS: INR 1.28 (0.93-1.08)
[2017-09-29 08:18] LABS: ALB/GLOB RATIO 1.3 (1.1-1.8); ALBUMIN 4.2 g/dL (3.0-4.8); ALT/SGPT 62 U/L (7-56); AST/SGOT 38 U/L (17-59); BLOOD UREA NITROGEN 26 mg/dL (7-21); CALCIUM 9.7 mg/dL (8.4-10.5); GFR AFRICAN-AMERICAN > 60; GFR NON-AFRICAN AMERICAN > 60
[2017-09-29] MEDS: Insulin Reg-LOW-Coverage SC SCH ×4 (08:18→21:39)
[2017-09-29] MEDS: diltiaZEM 180 mg/24 Hours CD Cap PO SCH (09:30)
[2017-09-29] MEDS: Pantoprazole 40 mg EC Tab PO SCH (09:32)
--- NOTE | 2017-09-29 09:58 | PN ---
DATE: 09/28/2017 CARDIOLOGY FOLLOWUP SUBJECTIVE: The patient is ambulating on the floor, having conversations with his neighbors without shortness of breath. However, he complains of being short of breath when he lies down. PHYSICAL EXAMINATION: VITAL SIGNS: Blood pressure 138/83, heart rate in the 80s. NECK: Negative JVD. LUNGS: Clear to auscultation. HEART: Reveal S1, S2. EXTREMITIES: Without edema. LABORATORY DATA: Hemoglobin is 14.3. Chemistries: Glucose is 299. IMPRESSION: 1. Early cardiomyopathy. 2. Diabetes mellitus. 3. Improvement of congestive heart failure. 4. Chronic obstructive pulmonary disease. 5. Hypertension. 6. Obesity. 7. Atrial fibrillation. Given these findings, the patient is on Cardizem which well controlled the heart rate. We will add digoxin to his regimen. The patient will need to be fully anticoagulated. From a cardiac perspective is likely can be discharged in the morning Alban Johnson MD
[2017-09-29 13:00] LABS: PH,URINE 6.5 (4.7-8.0); URINE APPEARANCE CLEAR (CLEAR); URINE BILIRUBIN NEGATIVE (NEGATIVE); URINE BLOOD NEGATIVE (NEGATIVE); URINE COLOR YELLOW (YELLOW); URINE GLUCOSE (UA) 500 mg/dL (NEGATIVE); URINE LEUKOCYTE ESTERASE NEGATIVE Leu/uL (NEGATIVE); URINE PROTEIN NEGATIVE mg/dL (<30 mg/dL); URINE UROBILINOGEN 0.2 E.U./dL (<1 E.U./dL)
--- NOTE | 2017-09-29 13:24 | DS ---
DATE: LOCATION: The patient is in room 373, bed 3. SUBJECTIVE: He had a comfortable night. There were no significant acute events overnight. He has no complaints of chest pain at this time. OBJECTIVE: VITAL SIGNS: Patient is afebrile. Temperature is 98, blood pressure is 134/98, respiratory rate ____ is 100% on room air. HEENT: PERRLA, EOMI. No icterus is present. NECK: Supple with no jugular venous distention. There are no bruits appreciated. LUNGS: Clear bilaterally. HEART: Irregularly irregular at a rate of approximately 100-110 per minute. ABDOMEN: Benign. EXTREMITIES: Show no deformities or edema. NEUROLOGICAL: The patient is intact. LABORATORY DATA: WBC 12.5, hemoglobin and hematocrit of 15.8 and 49.3. Chemistry: BUN of 26, creatinine of 1.2, glucose of 224. PLAN: The patient will be ambulated and continued on his current regimen. Sameer Araiza MD
--- NOTE | 2017-09-29 17:15 | PN ---
DATE: 09/29/2017 CARDIOLOGY FOLLOWUP SUBJECTIVE: The patient's shortness of breath is improved. PHYSICAL EXAMINATION: VITAL SIGNS: Blood pressure is 140/80, heart rate in the 80s. NECK: Negative JVD. LUNGS: Clear to auscultation. HEART: Regular S1, S2 EXTREMITIES: Without edema. LABORATORY DATA: Hemoglobin is 15.8. Chemistries: BUN and creatinine 26 and 1.2. The glucose is 254. IMPRESSION: 1. Dyspnea, improved. 2. Chronic obstructive pulmonary disease. 3. Mild cardiomyopathy. 4. Diabetes mellitus. 5. Atrial fibrillation. 6. Resolution of congestive heart failure. PLAN: Given these findings, the patient is scheduled for discharge. Followup and instructions have been given to the patient in detail. Alban Johnson MD
[2017-09-30] MEDS: Ipratropium 0.02% Inhal Soln (0.5 mg/2.5 ml) UD IH SCH ×2 (02:11→08:06)
[2017-09-30 06:09] VITALS: RESP 20; TEMP 97.8
[2017-09-30 06:40] LABS: ALB/GLOB RATIO 1.4 (1.1-1.8); ALBUMIN 3.9 g/dL (3.0-4.8); ALT/SGPT 48 U/L (7-56); AST/SGOT 26 U/L (17-59); BLOOD UREA NITROGEN 27 mg/dL (7-21); CALCIUM 9.5 mg/dL (8.4-10.5); GFR AFRICAN-AMERICAN > 60; GFR NON-AFRICAN AMERICAN > 60
[2017-09-30 06:55] LABS: BASO # 0.03 K/mm3 (0.0-2.0); BASO % 0.3 % (0.0-3.0); EOS # 0.2 (0.0-0.7); EOS % 2.2 % (1.5-5.0); GRAN # 5.85 (1.4-6.5); GRAN % 64.9 % (50.0-68.0); HEMOGLOBIN 15.2 g/dL (14.0-18.0); LYMPH # 2.1 (1.2-3.4); LYMPH % 23.6 % (22.0-35.0); MEAN CELL VOLUME 96.1 fl (80.0-105.0); MEAN CORPUSCULAR HEMOGLOBIN 31.3 pg (25.0-35.0); MEAN CORPUSCULAR HGB CONC 32.6 g/dl (31.0-37.0); MEAN PLATELET VOLUME 12.9 fl (7.0-11.0); MONO # 0.8 (0.1-0.6); RBC 4.85 10^6/uL (3.5-6.1); RED CELL DISTRIBUTION WIDTH 12.4 % (11.5-14.5)
[2017-09-30 07:21] LABS: INR 1.83 (0.93-1.08); PROTHROMBIN TIME 21.3 SECONDS (9.4-12.5)
[2017-09-30] MEDS: Insulin Reg-LOW-Coverage SC SCH (08:05)
[2017-09-30] MEDS: Pantoprazole 40 mg EC Tab PO SCH (09:17)
[2017-09-30] MEDS: diltiaZEM 180 mg/24 Hours CD Cap PO SCH (09:17)
[2017-09-30 09:22] VITALS: BP 114/77
[2017-09-30 11:53] VITALS: PULSE 116
[2017-09-30 11:58] VITALS: O2SAT 93
== END 2017-09-30 12:00 | disposition home or self-care (01) | DRG 308 ==
LOC: ED 06:27 → ERH 09:03 → 3RSO 11:13
PROVIDERS: ADMIT Internal Medicine; ATTEND Internal Medicine
DX: I48.91 Unspecified atrial fibrillation (principal); I50.21 Acute systolic (congestive) heart failure; E10.40 Type 1 diabetes mellitus with diabetic neuropathy, unspecified; I42.9 Cardiomyopathy, unspecified; I11.0 Hypertensive heart disease with heart failure; I45.2 Bifascicular block; J44.9 Chronic obstructive pulmonary disease, unspecified; E66.9 Obesity, unspecified; E78.5 Hyperlipidemia, unspecified; R09.02 Hypoxemia; Z79.01 Long term (current) use of anticoagulants; Z79.4 Long term (current) use of insulin; Z79.82 Long term (current) use of aspirin; Z87.891 Personal history of nicotine dependence; Z68.28 Body mass index [BMI] 28.0-28.9, adult; K21.9 Gastro-esophageal reflux disease without esophagitis; G47.00 Insomnia, unspecified

== ENCOUNTER 2017-10-11 22:15 | Observation (INO) | payer MEDICARE, OTHER ==
--- NOTE | 2017-10-11 22:32 | ED PDOC ---
Arrival/HPI - General Chief Complaint: Chest Pain Time Seen by Provider: 10/11/17 22:26 Historian: Patient - History of Present Illness Narrative History of Present Illness (Text): 10/11/17 22:32 Alton Fountain is a 67 year old male, whose past medical history includes atrial fibrillation, diabetes, COPD, CHF, and hypertension, who presents to the Emergency department complaining of chest pain. Patient states he has been experiencing chest tightness with associated shortness of breath today. Patient notes he was shoveling snow earlier today. Patient states he was recently admitted to the hospital 1 week prior for similar complaint and started on Coumadin. Patient denies any fever, chills, nausea, vomiting, diarrhea, urinary symptoms, back pain, neck pain, headache, dizziness, or any other complaints. PMD: Dr. Araiza [place]: Dr. Kim Time/Duration: Other (today) Symptom Onset: Gradual Symptom Course: Unchanged Context: Home Past Medical History - Provider Review Nursing Documentation Reviewed: Yes - Infectious Disease Hx of Infectious Diseases: None - Tetanus Immunization Tetanus Immunization: Unknown - Cardiac Hx Cardiac Disorders: Yes Hx Cardiac Arrhythmia: Yes (NEW ONSET AFIB 09-22-17) Hx Congestive Heart Failure: Yes Hx Hypertension: Yes - Pulmonary Hx Respiratory Disorders: Yes (SMOKED PPD CIGARETTES QUIT) - Neurological Hx Neurological Disorder: Yes Other/Comment: diabetic neuropathy - HEENT Hx HEENT Disorder: No - Renal Hx Renal Disorder: No - Endocrine/Metabolic Hx Endocrine Disorders: Yes Hx Diabetes Mellitus Type 1: Yes - Hematological/Oncological Hx Blood Disorders: No - Integumentary Hx Dermatological Disorder: No - Musculoskeletal/Rheumatological Hx Musculoskeletal Disorders: Yes Hx Falls: Yes Hx Fractures: Yes (RIGHT WRIST ORTHO SX.) - Gastrointestinal Hx Gastrointestinal Disorders: No - Genitourinary/Gynecological Hx Genitourinary Disorders: No - Psychiatric Hx Psychophysiologic Disorder: No Hx Depression: No Hx Emotional Abuse: No Hx Physical Abuse: No Hx Substance Use: No - Surgical History Hx Orthopedic Surgery: Yes (right wrist) - Anesthesia Hx Anesthesia: Yes Hx Anesthesia Reactions: No Hx Malignant Hyperthermia: No - Suicidal Assessment Feels Threatened In Home Enviroment: No Family/Social History - Physician Review Nursing Documentation Reviewed: Yes Family/Social History: Unknown Family HX Smoking Status: Former Smoker Hx Alcohol Use: No Hx Substance Use: No Substance used: Cocaine Hx Substance Use Treatment: No Allergies/Home Meds Allergies/Adverse Reactions: Allergies No Known Allergies Allergy (Verified 09/27/17 14:32) Home Medications: Home Meds Medication Instructions Recorded Confirmed Gabapentin [Neurontin] 300 mg PO TID 08/28/17 10/11/17 GlipiZIDE [Glucotrol] 5 mg PO BID 08/28/17 10/11/17 metFORMIN [glucOPHAGE] 1,000 mg PO BID 08/28/17 10/11/17 [id number] CD [Cardizem CD] 180 mg PO DAILY 09/23/17 10/11/17 Aspirin [Ecotrin] 81 mg PO DAILY 09/27/17 10/11/17 Esomeprazole Magnesium [Nexium] 40 mg PO DAILY 09/27/17 10/11/17 Furosemide [Lasix] 40 mg PO DAILY 09/27/17 10/11/17 Warfarin Sodium [Jantoven] 5 mg PO DAILY 09/27/17 10/11/17 Review of Systems - Physician Review All systems were reviewed & negative as marked: Yes - Review of Systems Constitutional: Normal. absent: Fevers Eyes: Normal ENT: Normal Respiratory: SOB. absent: Cough Cardiovascular: Chest Pain Gastrointestinal: Normal. absent: Abdominal Pain, Diarrhea, Nausea, Vomiting Genitourinary Male: Normal. absent: Dysuria, Frequency, Hematuria, Urinary Output Changes Musculoskeletal: Normal. absent: Back Pain, Neck Pain Skin: Normal. absent: Rash Neurological: Normal. absent: Headache, Dizziness Endocrine: Normal Hemo/Lymphatic: Normal Psychiatric: Normal Physical Exam Vital Signs Reviewed: Yes Vital Signs Temp Pulse Resp BP Pulse Ox 10/12/17 00:01 120/87 10/11/17 22:37 97.5 F L 93 H 18 136/88 95 Temperature: Afebrile Blood Pressure: Normal Pulse: Regular Respiratory Rate: Normal Appearance: Positive for: Well-Appearing, Non-Toxic, Comfortable Pain Distress: None Mental Status: Positive for: Alert and Oriented X 3 - Systems Exam Head: Present: Atraumatic, Normocephalic Pupils: Present: PERRL Extroacular Muscles: Present: EOMI Conjunctiva: Present: Normal Mouth: Present: Moist Mucous Membranes Neck: Present: Normal Range of Motion Respiratory/Chest: Present: Rales (Rales at the bases). No: Respiratory Distress, Accessory Muscle Use Cardiovascular: Present: Normal S1, S2, Irregular Rhythm (Irregular, regular ). No: Murmurs Abdomen: Present: Normal Bowel Sounds. No: Tenderness, Distention, Peritoneal Signs Back: Present: Normal Inspection Upper Extremity: Present: Normal Inspection. No: Cyanosis, Edema Lower Extremity: Present: Normal Inspection. No: Edema Neurological: Present: GCS=15, CN II-XII Intact, Speech Normal Skin: Present: Warm, Dry, Normal Color. No: Rashes Psychiatric: Present: Alert, Oriented x 3, Normal Insight, Normal Concentration Medical Decision Making ED Course and Treatment: 10/11/17 22:32 Impression: 67 year old male complaining of chest tightness and shortness of breath today. Plan: -- EKG -- Chest X-ray -- Labs, cardiac enzymes, BNP -- Reassess and disposition Prior Visits: Notes and results from previous visits were reviewed. On 09/27/2017, pt was seen in the Emergency department for shortness of breath. Pt was admitted to the hospital for further evaluation. Progress Notes: Reviewed EKG, a fib at 100 bpm. RBBB. Inferior and anterior infarct. 10/11/17 23:18 Chest X-ray reviewed, shows increased pulmonary vascular markings. 10/11/17 23:[address] Araiza, who is aware and agrees with plan. Accepts pt in to his service. Pt will go to Telemetry observation for chest pain and CHF. - Lab Interpretations Lab Results: 10/11/17 22:35 10/11/17 22:35 Lab Results 10/11/17 22:35: WBC 11.7 H D, RBC 5.00, Hgb 15.9, Hct 47.4, MCV 94.8, MCH 31.8, MCHC 33.5, RDW 12.0, Plt Count 257, MPV 12.6 H 10/11/17 22:35: Sodium 139, Potassium 4.9, Chloride 99, Carbon Dioxide 28, Anion Gap 16, BUN 31 H, Creatinine 1.1, Est GFR ( Amer) > 60, Est GFR ( Non-Af Amer) > 60, Random Glucose 316 H* D, Calcium 9.7, Total Bilirubin 0.5, AST 37, ALT 41, Alkaline Phosphatase 80, Lactate Dehydrogenase 640, Total Creatine Kinase 43, Troponin I 0.01, NT-Pro-B Natriuret Pep 2120 H, Total Protein 7.3, Albumin 3.9, Globulin 3.4, Albumin/Globulin Ratio 1.1 10/11/17 22:35: PT 15.3 H, INR 1.33 H, APTT 33.8 I have reviewed the lab results: Yes - RAD Interpretation Radiology Orders: 10/11/17 22:35 CHEST PORTABLE [RAD] Stat Ignition Specialist: ED Physician - EKG Interpretation Interpreted by ED Physician: Yes Type: 12 lead EKG - Medication Orders Current Medication Orders: Discontinued Medications Furosemide (Lasix) 40 mg IVP ONCE ONE Stop: 10/11/17 23:44 Last Admin: 10/12/17 00:01 Dose: 40 mg MAR Blood Pressure Document 10/12/17 00:01 IT (Rec: 10/12/17 00:01 IT [id number]) Blood Pressure Blood Pressure (100/60-150/90 mm Hg) 120/87 IVP Administration Document 10/12/17 00:01 IT (Rec: 10/12/17 00:01 IT [id number]) Charges for Administration # of IVP Administrations 1 - Scribe Statement The provider has reviewed the documentation as recorded by the Scribe Kinga Fontaine All medical record entries made by the Scribe were at my direction and personally dictated by me. I have reviewed the chart and agree that the record accurately reflects my personal performance of the history, physical exam, medical decision making, and the department course for this patient. I have also personally directed, reviewed, and agree with the discharge instructions and disposition. Disposition/Present on Arrival - Present on Arrival Any Indicators Present on Arrival: No History of DVT/PE: No History of Uncontrolled Diabetes: Yes Urinary Catheter: No History of Decub. Ulcer: No History Surgical Site Infection Following: None - Disposition Have Diagnosis and Disposition been Completed?: Yes Diagnosis: CHF (congestive heart failure), Chest pain Disposition Time: 00:08 Patient Plan: Observation Condition: STABLE Discharge Instructions (ExitCare): Heart Failure (ED), Chest Pain (ED) Referrals: Teodora COTTON,Pedro Taveras MD [Primary Care Provider] - Follow up with primary Forms: [employer] ([place])
[2017-10-11 22:49] LABS: HEMOGLOBIN 15.9 g/dL (14.0-18.0); MEAN CELL VOLUME 94.8 fl (80.0-105.0); MEAN CORPUSCULAR HEMOGLOBIN 31.8 pg (25.0-35.0); MEAN CORPUSCULAR HGB CONC 33.5 g/dl (31.0-37.0); MEAN PLATELET VOLUME 12.6 fl (7.0-11.0); WHITE BLOOD COUNT 11.7 10^3/ul (4.5-11.0)
[2017-10-11 22:59] LABS: INR 1.33 (0.93-1.08); PARTIAL THROMBOPLASTIN TIME 33.8 Seconds (25.1-36.5); PROTHROMBIN TIME 15.3 SECONDS (9.4-12.5)
[2017-10-11 23:04] LABS: ALB/GLOB RATIO 1.1 (1.1-1.8); ALBUMIN 3.9 g/dL (3.0-4.8); ALT/SGPT 41 U/L (7-56); AST/SGOT 37 U/L (17-59); BLOOD UREA NITROGEN 31 mg/dL (7-21); CALCIUM 9.7 mg/dL (8.4-10.5); GFR AFRICAN-AMERICAN > 60; GFR NON-AFRICAN AMERICAN > 60
[2017-10-11 23:11] LABS: B-TYPE NATRIURETIC PEPTIDE 2120 pg/mL (0-450)
[2017-10-11 23:15] LABS: TROPONIN I 0.01 ng/mL
[2017-10-12 03:04] VITALS: BMI 29.5
[2017-10-12 06:42] VITALS: TEMP 97.6; O2SAT 96
[2017-10-12 07:56] LABS: BASO # 0.02 K/mm3 (0.0-2.0); BASO % 0.2 % (0.0-3.0); EOS # 0.1 (0.0-0.7); EOS % 1.4 % (1.5-5.0); GRAN # 7.29 (1.4-6.5); HEMOGLOBIN 15.1 g/dL (14.0-18.0); LYMPH % 19.8 % (22.0-35.0); MEAN CELL VOLUME 93.2 fl (80.0-105.0); MEAN CORPUSCULAR HEMOGLOBIN 31.1 pg (25.0-35.0); MEAN CORPUSCULAR HGB CONC 33.4 g/dl (31.0-37.0); MONO # 0.7 (0.1-0.6); MONO % 6.6 % (1.0-6.0); RBC 4.85 10^6/uL (3.5-6.1); WHITE BLOOD COUNT 10.1 10^3/ul (4.5-11.0)
[2017-10-12 08:04] LABS: INR 1.36 (0.93-1.08); PROTHROMBIN TIME 15.7 SECONDS (9.4-12.5)
[2017-10-12 08:11] LABS: ALB/GLOB RATIO 1.3 (1.1-1.8); ALBUMIN 3.7 g/dL (3.0-4.8); ALT/SGPT 45 U/L (7-56); AST/SGOT 20 U/L (17-59); BLOOD UREA NITROGEN 23 mg/dL (7-21); CALCIUM 9.1 mg/dL (8.4-10.5); GFR AFRICAN-AMERICAN > 60; GFR NON-AFRICAN AMERICAN > 60
[2017-10-12 08:14] LABS: TROPONIN I 0.02 ng/mL
--- NOTE | 2017-10-12 08:14 | RAD ---
HISTORY: fever COMPARISON: 09/27/2017 FINDINGS: LUNGS: No active pulmonary disease. PLEURA: No significant pleural effusion identified, no pneumothorax apparent. CARDIOVASCULAR: Mild cardiomegaly OSSEOUS STRUCTURES: No significant abnormalities. VISUALIZED UPPER ABDOMEN: Normal. OTHER FINDINGS: None. IMPRESSION: No active disease.
[2017-10-12] MEDS ORDERED: Furosemide 40 mg/5 mL Oral Soln UD PO SCH (10:00)
[2017-10-12] MEDS ORDERED: diltiaZEM 180 mg/24 Hours CD Cap PO SCH (10:00)
--- NOTE | 2017-10-12 10:42 | CARD ---
APPROVED REPORT EKG Measurement Heart [id number] <Conclusion> Atrial Fibrillation. Right bundle branch block Inferior infarct, age undetermined Anterior infarct, age undetermined
[2017-10-12 12:36] VITALS: BP 119/88; PULSE 103; RESP 20
--- NOTE | 2017-10-12 14:23 | CON ---
DATE: 10/12/2017 INDICATIONS: This is a 67-year-old man who was admitted to the Emergency Room yesterday when he presented with a left-sided upper chest discomfort, which began yesterday after he was shoveling snow. He became concerned and went to the Emergency Room. The pain subsided, lasting less than 30 minutes, has not reoccurred. First troponin is negative. He was recently admitted with an episode of congestive heart failure. He underwent stress test and echocardiogram by another instructor knitting. The stress test demonstrated normal perfusion study with a low-normal ejection fraction of 51%. An echocardiogram was done. The interpretation is not in the system. To me, this study demonstrated a low-normal ejection fraction with moderate mitral regurgitation, [id number] tricuspid regurgitation and moderate pulmonary hypertension. He has chronic atrial fibrillation, on warfarin; diabetes, hypertension, COPD. He is a former smoker. He has a right bundle-branch block and left anterior hemiblock. At this time, he denies chest pain. There was no shortness of breath, orthopnea, PND, syncope, presyncope, lightheadedness, dizziness, vertigo, palpitations, edema, claudication, fever, chills, cough, sputum production, hemoptysis, abdominal pain, nausea, vomiting, diarrhea, constipation or melena. MEDICATIONS AT THE TIME OF ADMISSION: Include diltiazem, glipizide, warfarin, Lasix, gabapentin, Nexium and metformin. ALLERGIES: THERE ARE NO KNOWN MEDICATION ALLERGIES. SOCIAL HISTORY: He is a former heavy smoker. He does not drink alcohol. He is ambulatory. He lives at home. FAMILY HISTORY: Noncontributory. REVIEW OF SYSTEMS: Ten-point review of systems is otherwise unremarkable except as noted above. PHYSICAL EXAMINATION GENERAL: He is a well-developed male, sitting on his bed in Telemetry, in no acute distress. VITAL SIGNS: Notable for atrial fibrillation with a moderate ventricular response, 88 beats per minute, afebrile, blood pressure 126/85, respirations 19 to 20, O2 saturation 96% to 98% on room air and nasal cannula. HEENT: Reveals no neck vein distention, thyromegaly or carotid bruits. Mucous membranes are moist. Conjunctivae pink. NECK: Supple. LUNGS: Lung izquierdo clear throughout. HEART: Reveals an irregular rhythm, normal first and second heart sounds. Soft systolic murmur along the left sternal border. ABDOMEN: Soft. Bowel sounds present. No mass, organomegaly, tenderness, rebound, guarding, CVA tenderness, or palpable abdominal aortic aneurysm. EXTREMITIES: Reveals no cyanosis, clubbing or edema. NEUROLOGIC: Awake, alert and oriented. SKIN: Warm and dry. No rash or cellulitis. PSYCHIATRIC: Normal as to mood and affect. LABORATORY AND IMAGING: A portable chest x-ray revealed no active disease. An EKG demonstrates atrial fibrillation with moderate ventricular response, right bundle-branch block, left anterior hemiblock, ST-T wave changes consistent with ischemia. No change from a prior EKG. White count normal. Hemoglobin of 15.1, hematocrit 45.2, platelet count is normal. PT 15.7, INR 1.36, PTT 33.8. Electrolytes are unremarkable. BUN 23, creatinine 0.9, blood sugar is in 200 to 300 range. LFTs unremarkable. CK 43, troponin is negative x2. BNP 2120. IMPRESSION: Alton Fountain is a 67-year-old man who developed chest pain while shoveling snow yesterday. The chest pain has subsided. Troponins are negative x2. His EKG is abnormal as described. He had a recent nuclear stress test, which demonstrated normal perfusion with a low-normal ejection fraction of 51%. An echocardiogram showed similar LV function, but also moderate mitral regurgitation, [id number] tricuspid regurgitation and moderate pulmonary hypertension. At this point, I will review his data. He can be out of bed and ambulate. His INR was subtherapeutic. I will give him 10 mg of warfarin today. If he has no further chest pain, early discharge can be arranged. He has an office visit with me for next week. I will discuss cardiac catheterization with him at that time. I will continue diltiazem. We will adjust his warfarin dosage by INRs on an outpatient basis. I will continue Lasix and I will add aspirin 81 mg daily. He will call if there are any additional symptoms. He will avoid exertions. I advised him to refrain from snow shoveling permanently. Arrangement was made for followup in my office Monday of next week. Cedric Kim MD [facility] # [id number]
--- NOTE | 2017-10-12 20:30 | HP ---
HISTORY OF PRESENT ILLNESS: The patient is a 67 year old man with a past medical history of hypertension, hyperlipidemia, type 2 diabetes mellitus and atrial fibrillation who presented to [facility] for evaluation of left anterolateral chest wall pain which began after shoveling snow. The patient reports that he was in his usual state of health until the day of presentation to the ED when he was noted to develop a left anterolateral chest wall pain which he described as a tightness to his chest wall which began after shoveling snow. The patient denied dyspnea , diaphoresis or palpitations associated with the symptoms and states that they were relieved with rest. Given his underlying cardiac history he presented to the ED for evaluation. The patient reports that by the time of examination in the ED he had complete resolution of his symptoms and offered no complaints. PAST MEDICAL HISTORY: As per HPI, also GERD and insomnia. PAST SURGICAL HISTORY: As per HPI. ALLERGIES: NKDA. MEDICATIONS: Diltiazem CD 180 mg p.o. daily, Warfarin 5 mg p.o. daily, Metformin 1000 mg p.o. b.i.d., Glipizide 5 mg p.o. b.i.d., Gabapentin 300 mg p.o. t.i.d., Aspirin 81 mg p.o. daily, Nexium 40 mg p.o. daily and Lasix 40 mg p.o. daily. FAMILY HISTORY: Noncontributory. SOCIAL HISTORY: The patient reports a 30-pack year smoking history and social alcohol use. He denies illicit drug abuse. REVIEW OF SYSTEMS: A 14-point review of systems is negative except as per HPI. PHYSICAL EXAMINATION VITAL SIGNS: Temperature 97.6, pulse 88, blood pressure 126/85, respiratory rate 19, oxygen saturation 96% on 2 liters nasal cannula. GENERAL: No apparent distress. HEENT: PERRL. EOMI. No scleral icterus. No conjunctival pallor. NECK: Supple with full range of motion. No JVD. No bruits. LUNGS: Clear to auscultation. CARDIOVASCULAR: Irregularly irregular. Normal S1 and S2. CHEST: Tenderness to palpitation to left sternal border and left costal margin. ABDOMEN: Normoactive bowel sounds. Soft, nontender and nondistended. EXTREMITIES: No clubbing, cyanosis or edema. NEUROLOGIC: Awake, alert and oriented x3. No focal motor deficits. LABORATORY DATA: WBC 10, hemoglobin 15, hematocrit 45, platelets 210,000. Chemistry reviewed and unremarkable. INR 1.36, troponin 0.01 and 0.02, BNP 2120. IMAGING STUDIES: Chest x-ray demonstrates no acute pathology. ASSESSMENT: The patient is a 67 year old man with a past medical history of AFib, HTN, T2DM , HL and GERD who presented for evaluation of a 1 day history of left anterolateral chest wall pain which began after shoveling snow and resolved by the time of presentation to the ED. PLAN 1. Chest wall pain, etiology likely musculoskeletal in nature and low suspicion for ACS. Labs demonstrate two sets of negative cardiac enzymes and furthermore the patient reports complete resolution of his symptoms and is requesting to go home. 2. AFib, rate controlled. Continue Diltiazem CD 180 mg p.o. daily, Aspirin 81 mg p.o. daily and Warfarin 5 mg p.o. daily. The patient has been advised to maintain his followup on an outpatient basis to monitor his INR with a goal INR of 2-3. 3. Hypertension, blood pressure controlled. Continue Diltiazem CD 180 mg p.o. daily and Lisinopril 5 mg p.o. daily. 4. Type 2 diabetes mellitus. Resume Glipizide 5 mg p.o. b.i.d. and Metformin 1000 mg p.o. b.i.d. 5. GERD. Resume Protonix 40 mg p.o. daily. 6. Insomnia, resume Ambien 10 mg p.o. at bedtime. 7. Prophylaxis. Continue Protonix 40 mg p.o. daily for GI prophylaxis. DVT prophylaxis is not indicated as the patient is ambulatory. CODE STATUS: Full code. Pedro Araiza MD MTDD
[2017-10-13] MEDS ORDERED: Pantoprazole 40 mg EC Tab PO SCH (06:00)
--- NOTE | 2017-10-17 03:38 | DS ---
ADMITTING DIAGNOSIS: Chest wall pain. DISCHARGE DIAGNOSIS: Musculoskeletal chest wall pain. SECONDARY DIAGNOSES: Atrial fibrillation, hypertension, type 2 diabetes mellitus, GERD and insomnia. CONSULTATION: Dr. Kim (Cardiology). IMAGING STUDIES: Chest x-ray demonstrated no active disease. PROCEDURES: None. HISTORY OF PRESENT ILLNESS: The patient is a 67 year old man with a past medical history of hypertension, hyperlipidemia, type 2 diabetes mellitus and AFib who presented to [facility] for evaluation of left anterolateral chest wall pain which began after shoveling snow. The patient reports that he was in his usual state of health until the day of presentation to the ED when he was noted to develop a left anterolateral chest wall pain which he described as a tightness to his chest wall, which began after shoveling snow. He denied dyspnea, diaphoresis or palpitations associated with his symptoms and states that they were relieved with rest. Given his underlying cardiac history, he opted for ED evaluation. He reported that by the time of examination in the ED he had complete resolution of his symptoms and offered no complaints. Evaluation in the ED noted him to be afebrile, hemodynamically stable and initial laboratory studies were unremarkable. An EKG also demonstrated no changes suggestive of ischemia. He was subsequently admitted to the telemetry becerra to cycle cardiac enzymes so as to rule out acute coronary syndrome. HOSPITAL COURSE: Upon admission to the telemetry becerra he was started on NSAIDs and was evaluated by Dr. Kim of Cardiology. He was advised that his presentation was likely due to musculoskeletal chest wall pain and unlikely to be cardiac in nature. Given his response to NSAIDs, the fact that he had negative cardiac enzymes and a negative stress test performed 2 months prior, he was cleared for discharge to home and was discharged home later in the day. CONDITION: Good, improved. DISPOSITION: Home. DISCHARGE MEDICATIONS: Diltiazem CD 180 mg p.o. daily, Aspirin 81 mg p.o. daily, Coumadin 5 mg p.o. daily, Metformin 1000 mg p.o. b.i.d., Glipizide 5 mg p.o. b.i.d., Gabapentin 300 mg p.o. t.i.d., Nexium 40 mg p.o. daily, Lasix 40 mg p.o. daily and Lisinopril 5 mg p.o. daily. DISCHARGE INSTRUCTIONS: The patient was advised to refrain from any strenuous activity pending outpatient followup with Dr. Kim in 1 week. He was also advised that if he has any recurrence of his symptoms to present to his PMD or to the nearest ED immediately. FOLLOWUP: The patient to follow up with his PMD within 1 week of discharge. The patient to follow up with Dr. Kim as scheduled. Pedro Araiza MD [facility]
== END 2017-10-12 18:29 | disposition home or self-care (01) ==
LOC: ED 22:15 → ERH 10-12 00:51 → 2RNO 10-12 02:05
PROVIDERS: ADMIT Student in an Organized Health Care Education/Training Program; ATTEND Student in an Organized Health Care Education/Training Program
DX: R07.9 Chest pain, unspecified (principal); E10.40 Type 1 diabetes mellitus with diabetic neuropathy, unspecified; E78.5 Hyperlipidemia, unspecified; I08.1 Rheumatic disorders of both mitral and tricuspid valves; I11.0 Hypertensive heart disease with heart failure; I27.20 Pulmonary hypertension, unspecified; I45.2 Bifascicular block; I48.2 Chronic atrial fibrillation; I50.9 Heart failure, unspecified; J44.9 Chronic obstructive pulmonary disease, unspecified; K21.9 Gastro-esophageal reflux disease without esophagitis; Y93.H1 Activity, digging, shoveling and raking; Z79.01 Long term (current) use of anticoagulants; Z79.82 Long term (current) use of aspirin; Z87.891 Personal history of nicotine dependence
CPT/HCPCS: 36415; 71045; 80053; 82550; 82948; 83615; 83880; 84484; 85025; 85027; 85610; 85730; 93005; 96374; 99285; G0378; J1940

== ENCOUNTER 2017-10-25 06:08 | Day surgery (SDC) | payer MEDICARE ==
[2017-10-19 12:53] VITALS: BMI 29.0
[2017-10-25] MEDS ORDERED: Lidocaine 2% Inj (20ml) ONE (07:04)
[2017-10-25] MEDS ORDERED: Phenylephrine 10 mg/ml Inj ONE (07:04)
[2017-10-25] MEDS ORDERED: Midazolam 2 MG/2 ML VIAL ONE (07:05)
[2017-10-25] MEDS ORDERED: Iohexol 350mgl/ml 50 ML ONE (07:05)
[2017-10-25] MEDS ORDERED: Iodixanol 320 MG/ML 200 ML BOTTLE IV ONE (07:05)
[2017-10-25] MEDS ORDERED: Iodixanol 320 MG/ML 100 ML BOTTLE IV ONE ×2 (07:05→08:11)
[2017-10-25 07:16] LABS: INR 1.13 (0.93-1.08); PARTIAL THROMBOPLASTIN TIME 33.2 Seconds (25.1-36.5)
[2017-10-25] MEDS ORDERED: Sodium Chloride 0.9% 1,000 ML IV SCH (08:15)
[2017-10-25 08:26] VITALS: RESP 20
[2017-10-25 08:43] VITALS: TEMP 97.4
[2017-10-25 11:02] VITALS: BP 123/69; PULSE 78; O2SAT 94
--- NOTE | 2017-10-25 13:21 | CARDCATH ---
PROCEDURE DATE: 10/25/2017 PROCEDURES: 1. Selective left and right coronary angiography. 2. Left ventriculography. 3. Right femoral arteriography. 4. Angio-Seal deployment. HISTORY: This is a 67-year-old man with a history of chest pain and borderline stress test as well as mitral regurgitation and atrial fibrillation, advised cardiac catheterization. INDICATIONS: As above. FINDINGS HEMODYNAMICS: The aortic pressure was 120/70 with left ventricular pressure of 120/16. CORONARY ANATOMY 1. The left mainstem had a mild 20% distal tapering. 2. The left anterior ascending artery had mild irregularities with several 30% to 40% lesions in the midportion of the vessel. The diagonal branches had no significant disease. 3. The left circumflex artery gave rise to one large obtuse marginal branch. This was relatively free of disease. 4. The right coronary artery was moderate size and dominant. This had a 30% tapering in its mid portion. LEFT VENTRICULOGRAPHY: Via power injection, a left ventriculogram was performed in the GRIFFIN projection. This revealed mild diffuse hypokinesis with an overall ejection fraction of 50%. 3+ mitral regurgitation was noted. There was no aortic valve gradient noted on the catheter pullback. CONCLUSIONS 1. Mild diffuse coronary artery disease. 2. Moderately reduced LV systolic function. 3. Moderately severe mitral regurgitation. RECOMMENDATIONS: Given the above findings, intensified medical therapy and rate controlled therapy for atrial fibrillation is advised. Consideration may need to be given to mitral valve replacement. Risk factor control was advised. Gurinder Johnson MD cc: Pedro Araiza MD MTDD
== END 2017-10-25 11:28 | disposition home or self-care (01) ==
LOC: CATH 06:08
PROVIDERS: ATTEND Internal Medicine Cardiovascular Disease
DX: I25.119 Atherosclerotic heart disease of native coronary artery with unspecified angina pectoris (principal); I34.0 Nonrheumatic mitral (valve) insufficiency; I48.91 Unspecified atrial fibrillation; I10 Essential (primary) hypertension; E11.9 Type 2 diabetes mellitus without complications; R06.00 Dyspnea, unspecified
CPT/HCPCS: 36415; 82948; 85610; 85730; 86850; 86900; 93458; 99152; C1760; C1769; C2629; J1644; J2250; J3010; J7040 ×2; Q9966; Q9967

== ENCOUNTER 2017-10-25 22:00 | Emergency (ER) | payer MEDICARE, OTHER ==
[2017-10-25 22:00] VITALS: BMI 29.0
--- NOTE | 2017-10-25 22:48 | ED PDOC ---
Arrival/HPI - General Chief Complaint: Shortness Of Breath Time Seen by Provider: 10/25/17 22:10 Historian: Patient - History of Present Illness Narrative History of Present Illness (Text): 10/25/17 22:45 67yo male with Past medical history of Atrial fibrillation, diabetes, CHF who present with complaint of shortness of breath since this evening. He notes that shortness of breath started few hours after having Catherization, here in [facility]. + Orthopnea. Denies chest pain, dizziness, diaphoresis, LE edema, calf pain, nausea, vomiting, abdominal pain, any other complaint. He notes that his catherization was negative today. Past Medical History - Provider Review Nursing Documentation Reviewed: Yes - Infectious Disease Hx of Infectious Diseases: None - Tetanus Immunization Tetanus Immunization: Unknown - Cardiac Hx Cardiac Disorders: No - Pulmonary Hx Respiratory Disorders: Yes (SMOKED PPD CIGARETTES QUIT) Hx Chronic Obstructive Pulmonary Disease (COPD): Yes - Neurological Hx Neurological Disorder: No - HEENT Hx HEENT Disorder: No - Renal Hx Renal Disorder: No - Endocrine/Metabolic Hx Endocrine Disorders: Yes Hx Diabetes Mellitus Type 1: Yes - Hematological/Oncological Hx Blood Disorders: No - Integumentary Hx Dermatological Disorder: No - Musculoskeletal/Rheumatological Hx Musculoskeletal Disorders: No - Gastrointestinal Hx Gastrointestinal Disorders: No - Genitourinary/Gynecological Hx Genitourinary Disorders: No - Psychiatric Hx Psychophysiologic Disorder: No Hx Substance Use: No - Surgical History Hx Coronary Stent: Yes - Anesthesia Hx Anesthesia Reactions: No Hx Malignant Hyperthermia: No - Suicidal Assessment Feels Threatened In Home Enviroment: No Family/Social History - Physician Review Nursing Documentation Reviewed: Yes Family/Social History: Unknown Family HX Smoking Status: Former Smoker Hx Alcohol Use: Yes (OCCASIONAL) Hx Substance Use: No Substance used: Cocaine Hx Substance Use Treatment: No Allergies/Home Meds Allergies/Adverse Reactions: Allergies No Known Allergies Allergy (Verified 10/25/17 22:23) Home Medications: Home Meds Medication Instructions Recorded Confirmed Gabapentin [Neurontin] 300 mg PO TID 08/28/17 10/25/17 GlipiZIDE [Glucotrol] 5 mg PO BID 08/28/17 10/25/17 metFORMIN [glucOPHAGE] 1,000 mg PO BID 08/28/17 10/25/17 diltiaZEM CD [Cardizem CD] 180 mg PO DAILY 09/23/17 10/25/17 Esomeprazole Magnesium [Nexium] 40 mg PO DAILY 09/27/17 10/25/17 Furosemide [Lasix] 40 mg PO BID 09/27/17 10/25/17 Warfarin Sodium [Jantoven] 5 mg PO DAILY 09/27/17 10/25/17 Metoprolol Norman/Hydrochlorothiaz 50 mg PO DAILY 10/25/17 10/25/17 [Metoprolol ER-Hctz 50-12.5 mg] Review of Systems - Physician Review All systems were reviewed & negative as marked: Yes - Review of Systems Constitutional: Normal Eyes: Normal ENT: Normal Respiratory: SOB. absent: Cough Cardiovascular: Normal. absent: Chest Pain Gastrointestinal: Normal Genitourinary Male: Normal Musculoskeletal: Normal Skin: Normal Neurological: Normal Endocrine: Normal Hemo/Lymphatic: Normal Psychiatric: Normal Physical Exam Vital Signs Reviewed: Yes Vital Signs Pulse Resp BP Pulse Ox 10/26/17 00:23 73 18 136/80 96 10/25/17 23:53 120/60 10/25/17 22:42 18 96 10/25/17 22:17 117 H 25 H 127/63 95 Temperature: Afebrile Blood Pressure: Normal Pulse: Tachycardic Respiratory Rate: Tachypneic Appearance: Positive for: Well-Appearing, Non-Toxic, Comfortable Pain Distress: None Mental Status: Positive for: Alert and Oriented X 3 - Systems Exam Head: Present: Atraumatic, Normocephalic Pupils: Present: PERRL Extroacular Muscles: Present: EOMI Conjunctiva: Present: Normal Mouth: Present: Moist Mucous Membranes Neck: Present: Normal Range of Motion Respiratory/Chest: Present: Clear to Auscultation, Good Air Exchange, Other ( Mild Crackle on the bases). No: Respiratory Distress, Accessory Muscle Use, Wheezes, Decreased Breath Sounds, Rales, Retracting, Rhonchi Cardiovascular: Present: Regular Rate and Rhythm, Normal S1, S2. No: Murmurs Abdomen: No: Tenderness, Distention, Peritoneal Signs Back: Present: Normal Inspection Upper Extremity: Present: Normal Inspection. No: Cyanosis, Edema Lower Extremity: Present: Normal Inspection. No: Edema Neurological: Present: GCS=15, CN II-XII Intact, Speech Normal Skin: Present: Warm, Dry, Normal Color. No: Rashes Psychiatric: Present: Alert, Oriented x 3, Normal Insight, Normal Concentration Medical Decision Making ED Course and Treatment: 10/26/17 00:37 PT in Emergency department for stated history. He was not in any distress. He notes that he had a negative cardiac catherization today and denied chest pain in Emergency department. CE was negative and BP of 2220.0 was noted. He is on Lasix at home. 60mg of Lasix was given in Emergency department. Insulin was also given for BS of 310 . EKG A fib ; LAD; RBB @81bpm. this is comparable to pt's previous EKG Chest X-ray Cardiomegaly Case was DW Dr. Roberto Araiza and he recommends that pt be DC home to f/u with his office tomorrow. Pt is not in distress in Emergency department and stable for DC. Result and plan was DW the pt and he agreed. - Lab Interpretations Lab Results: 10/25/17 23:06 10/25/17 23:06 Lab Results 10/26/17 00:22: POC Glucose (mg/dL) 223 H 10/25/17 23:06: Sodium 139, Chloride 98, Potassium 4.1, Carbon Dioxide 30, Anion Gap 15, BUN 25 H, Creatinine 1.0, Est GFR ( Amer) > 60, Est GFR ( Non-Af Amer) > 60, Random Glucose 313 H*, Calcium 9.7, Total Bilirubin 0.6, AST 41, ALT 40, Alkaline Phosphatase 82, Lactate Dehydrogenase 440, Total Creatine Kinase 37, Troponin I 0.03 D, NT-Pro-B Natriuret Pep 2290 H, Total Protein 6.8 , Albumin 3.8, Globulin 2.9, Albumin/Globulin Ratio 1.3 10/25/17 23:06: pO2 31, VBG pH 7.38, VBG pCO2 53.0, VBG HCO3 31.4 H, VBG Total CO2 33.0 H, VBG O2 Sat (Calc) 64.1, VBG Base Excess 4.9 H, VBG Potassium 3.8, Sodium 136.0, Chloride 99.0, Glucose 317 H, Lactate 1.9, FiO2 21.0, Venous Blood Potassium 3.8 10/25/17 23:06: PT 13.2 H, INR 1.15 H, APTT 29.5, D-Dimer, Quantitative < 200 10/25/17 23:06: WBC 8.4, RBC 4.75, Hgb 14.6, Hct 44.6, MCV 93.9, MCH 30.7, MCHC 32.7, RDW 12.1, Plt Count 219, MPV 12.7 H, Gran % 65.7, Lymph % (Auto) 25.7, [place] % (Auto) 6.6 H, Eos % (Auto) 1.8, Baso % (Auto) 0.2, Gran # 5.50, Lymph # ( Auto) 2.2, [place] # (Auto) 0.6, Eos # (Auto) 0.2, Baso # (Auto) 0.02 10/25/17 22:30: Urine Color Yellow, Urine Appearance Clear, Urine pH 5.5, Ur Specific [place] 1.025, Urine Protein Trace H, Urine Glucose (UA) 250 H, Urine Ketones Negative, Urine Blood Negative, Urine Nitrate Negative, Urine Bilirubin Negative, Urine Urobilinogen 0.2, Ur Leukocyte Esterase Negative, Urine RBC 0 - 2, Urine WBC 0 - 2, Ur Epithelial Cells 0 - 2 - RAD Interpretation Radiology Orders: 10/25/17 22:31 CHEST PORTABLE [RAD] Stat - Medication Orders Current Medication Orders: Discontinued Medications Furosemide (Lasix) 60 mg IVP STAT STA Stop: 10/25/17 23:46 Last Admin: 10/25/17 23:53 Dose: 60 mg MAR Blood Pressure Document 10/25/17 23:53 (Rec: 10/26/17 00:03 [id number]) Blood Pressure Blood Pressure (100/60-150/90) 120/60 IVP Administration Document 10/25/17 23:53 (Rec: 10/26/17 00:03 [id number]) Charges for Administration # of IVP Administrations 1 Insulin Human Regular (Humulin R) 5 units IVP ONCE STA Stop: 10/25/17 23:29 Last Admin: 10/25/17 23:51 Dose: 5 units MAR Blood Glucose Document 10/25/17 23:51 RG (Rec: 10/25/17 23:53 [id number]) Blood Glucose Finger Stick Blood Glucose (70-120) 310 IVP Administration Document 10/25/17 23:51 (Rec: 10/25/17 23:53 RG [id number]) Charges for Administration # of IVP Administrations 1 Disposition/Present on Arrival - Present on Arrival Any Indicators Present on Arrival: No History of DVT/PE: No History of Uncontrolled Diabetes: Yes Urinary Catheter: No History of Decub. Ulcer: No History Surgical Site Infection Following: None - Disposition Have Diagnosis and Disposition been Completed?: Yes Diagnosis: CHF (congestive heart failure) Disposition: HOME/ ROUTINE Disposition Time: 00:30 Patient Plan: Discharge Patient Problems: Current Active Problems Problem Status Onset CHF (congestive heart failure) Acute Condition: STABLE Discharge Instructions (ExitCare): Heart Failure, Adult (DC), Heart Failure (ED ) Additional Instructions: Follow up with your Doctor tomorrow Return to Emergency department for any new or worsening symptoms Referrals: Teodora COTTON,Pedro Taveras MD [Primary Care Provider] - Follow up with primary Forms: [employer] (Indonesian)
[2017-10-25 23:13] LABS: VENOUS BLOOD GAS BASE EXCESS 4.9 mmol/L (0.0-2.0); VENOUS BLOOD GAS PO2 31 mm/Hg (30-55); VENOUS BLOOD PH 7.38 (7.32-7.43)
[2017-10-25 23:15] LABS: BASO # 0.02 K/mm3 (0.0-2.0); BASO % 0.2 % (0.0-3.0); EOS # 0.2 (0.0-0.7); EOS % 1.8 % (1.5-5.0); GRAN # 5.5 (1.4-6.5); GRAN % 65.7 % (50.0-68.0); HEMOGLOBIN 14.6 g/dL (14.0-18.0); LYMPH # 2.2 (1.2-3.4); LYMPH % 25.7 % (22.0-35.0); MEAN CELL VOLUME 93.9 fl (80.0-105.0); MEAN CORPUSCULAR HEMOGLOBIN 30.7 pg (25.0-35.0); MEAN CORPUSCULAR HGB CONC 32.7 g/dl (31.0-37.0); MEAN PLATELET VOLUME 12.7 fl (7.0-11.0); MONO # 0.6 (0.1-0.6); MONO % 6.6 % (1.0-6.0); RBC 4.75 10^6/uL (3.5-6.1); RED CELL DISTRIBUTION WIDTH 12.1 % (11.5-14.5); WHITE BLOOD COUNT 8.4 10^3/ul (4.5-11.0)
[2017-10-25 23:27] LABS: ALB/GLOB RATIO 1.3 (1.1-1.8); ALBUMIN 3.8 g/dL (3.0-4.8); ALT/SGPT 40 U/L (7-56); AST/SGOT 41 U/L (17-59); BLOOD UREA NITROGEN 25 mg/dL (7-21); CALCIUM 9.7 mg/dL (8.4-10.5); GFR AFRICAN-AMERICAN > 60; GFR NON-AFRICAN AMERICAN > 60
[2017-10-25] MEDS ORDERED: Insulin Regular 1 UNITS/0.01 ML ML IVP STA (23:28)
[2017-10-25 23:33] LABS: D DIMER < 200 ng/mL (0-243); INR 1.15 (0.93-1.08); PARTIAL THROMBOPLASTIN TIME 29.5 Seconds (25.1-36.5); PROTHROMBIN TIME 13.2 SECONDS (9.4-12.5)
[2017-10-25 23:34] LABS: B-TYPE NATRIURETIC PEPTIDE 2290 pg/mL (0-450); TROPONIN I 0.03 ng/mL
[2017-10-25 23:49] LABS: PH,URINE 5.5 (4.7-8.0); URINE BILIRUBIN NEGATIVE (NEGATIVE); URINE BLOOD NEGATIVE (NEGATIVE); URINE GLUCOSE (UA) 250 mg/dL (NEGATIVE); URINE LEUKOCYTE ESTERASE NEGATIVE Leu/uL (NEGATIVE); URINE PROTEIN TRACE mg/dL (<30 mg/dL); URINE UROBILINOGEN 0.2 E.U./dL (<1 E.U./dL)
[2017-10-25 23:51] LABS: URINE APPEARANCE CLEAR (CLEAR); URINE COLOR YELLOW (YELLOW)
[2017-10-26 00:08] LABS: URINE EPITHELIAL CELLS 0 - 2 /hpf (0-5); URINE RBC 0 - 2 /hpf (0-2); URINE WBC 0 - 2 /hpf (0-6)
[2017-10-26 00:24] VITALS: BP 136/80; PULSE 73; RESP 18; O2SAT 96
--- NOTE | 2017-10-26 08:14 | RAD ---
HISTORY: SOB COMPARISON: No prior. FINDINGS: LUNGS: No active pulmonary disease. PLEURA: No significant pleural effusion identified, no pneumothorax apparent. CARDIOVASCULAR: Moderate cardiomegaly OSSEOUS STRUCTURES: No significant abnormalities. VISUALIZED UPPER ABDOMEN: Normal. OTHER FINDINGS: None. IMPRESSION: No active disease.
--- NOTE | 2017-10-26 09:45 | CARD ---
APPROVED REPORT EKG Measurement Heart [id number] <Conclusion> Atrial fibrillation with premature ventricular or aberrantly conducted complexes Left axis deviation Right bundle branch block Inferior infarct, age undetermined Anterior infarct, age undetermined Abnormal ECG
== END 2017-10-26 00:37 | disposition home or self-care (01) ==
LOC: ED 22:00
DX: I50.9 Heart failure, unspecified (principal); I48.91 Unspecified atrial fibrillation; E10.8 Type 1 diabetes mellitus with unspecified complications
CPT/HCPCS: 71045; 80053; 81001; 82550; 82803; 82948; 83615; 83880; 84484; 85025; 85378; 85610; 85730; 87040; 93005; 96374; 96375; 99284; J1940

== ENCOUNTER 2017-10-27 12:55 | Emergency (ER) | payer MEDICARE, OTHER ==
[2017-10-27 13:02] VITALS: BMI 28.6
--- NOTE | 2017-10-27 13:16 | ED PDOC ---
Arrival/HPI - General Time Seen by Provider: 10/27/17 13:01 Historian: Patient - History of Present Illness Narrative History of Present Illness (Text): 10/27/17 13:05 67 year old male, whose PMH includes CHF, diabetes, and atrial fibrillation (on Coumadin), who presents to the emergency department complaining of shortness of breath that has become gradually worse. Patient reports it is worse with laying flat and walking. He notes being compliant with his medication. Patient denies fever, cough, chills, chest pain, abdominal or other complaints. Additionally, patient recently had a normal cath by his console assembler. PMD: Teodora Tower Crane Operator: Dr. Colby Time/Duration: < week Symptom Onset: Gradual Symptom Course: Worsening Activities at Onset: Rest Context: Home Past Medical History - Provider Review Nursing Documentation Reviewed: Yes - Infectious Disease Hx of Infectious Diseases: None - Tetanus Immunization Tetanus Immunization: Unknown - Cardiac Hx Cardiac Disorders: No - Pulmonary Hx Respiratory Disorders: Yes (SMOKED PPD CIGARETTES QUIT) Hx Chronic Obstructive Pulmonary Disease (COPD): Yes - Neurological Hx Neurological Disorder: No - HEENT Hx HEENT Disorder: No - Renal Hx Renal Disorder: No - Endocrine/Metabolic Hx Endocrine Disorders: Yes Hx Diabetes Mellitus Type 1: Yes - Hematological/Oncological Hx Blood Disorders: No - Integumentary Hx Dermatological Disorder: No - Musculoskeletal/Rheumatological Hx Musculoskeletal Disorders: No - Gastrointestinal Hx Gastrointestinal Disorders: No - Genitourinary/Gynecological Hx Genitourinary Disorders: No - Psychiatric Hx Psychophysiologic Disorder: No Hx Substance Use: No - Surgical History Hx Coronary Stent: Yes - Anesthesia Hx Anesthesia Reactions: No Hx Malignant Hyperthermia: No - Suicidal Assessment Feels Threatened In Home Enviroment: No Family/Social History - Physician Review Nursing Documentation Reviewed: Yes Family/Social History: Unknown Family HX Smoking Status: Former Smoker Hx Alcohol Use: Yes (OCCASIONAL) Hx Substance Use: No Substance used: Cocaine Hx Substance Use Treatment: No Allergies/Home Meds Allergies/Adverse Reactions: Allergies No Known Allergies Allergy (Verified 10/25/17 22:23) Home Medications: Home Meds Medication Instructions Recorded Confirmed Gabapentin [Neurontin] 300 mg PO TID 08/28/17 10/27/17 GlipiZIDE [Glucotrol] 5 mg PO BID 08/28/17 10/27/17 metFORMIN [glucOPHAGE] 1,000 mg PO BID 08/28/17 10/27/17 diltiaZEM CD [Cardizem CD] 180 mg PO DAILY 09/23/17 10/27/17 Esomeprazole Magnesium [Nexium] 40 mg PO DAILY 09/27/17 10/27/17 Furosemide [Lasix] 40 mg PO BID 09/27/17 10/27/17 Warfarin Sodium [Jantoven] 5 mg PO DAILY 09/27/17 10/27/17 Metoprolol Norman/Hydrochlorothiaz 50 mg PO DAILY 10/25/17 10/27/17 [Metoprolol ER-Hctz 50-12.5 mg] Review of Systems - Review of Systems Constitutional: absent: Fevers ENT: absent: Sore Throat Respiratory: SOB. absent: Cough Cardiovascular: absent: Chest Pain Gastrointestinal: absent: Abdominal Pain Genitourinary Male: absent: Dysuria Musculoskeletal: absent: Back Pain Skin: absent: Rash Neurological: absent: Headache Physical Exam Vital Signs Temp Pulse Resp BP Pulse Ox 10/27/17 15:23 79 18 130/95 H 97 10/27/17 13:55 121/71 10/27/17 13:02 97.8 F 96 H 18 127/75 10/27/17 12:58 22 94 L Temperature: Afebrile Blood Pressure: Normal Pulse: Regular Respiratory Rate: Normal Appearance: Positive for: Well-Appearing, Non-Toxic, Comfortable Pain Distress: None Mental Status: Positive for: Alert and Oriented X 3 - Systems Exam Head: Present: Atraumatic, Normocephalic Pupils: Present: PERRL Extroacular Muscles: Present: EOMI Conjunctiva: Present: Normal Mouth: Present: Moist Mucous Membranes Respiratory/Chest: Present: Clear to Auscultation, Good Air Exchange. No: Respiratory Distress, Accessory Muscle Use, Wheezes, Rales, Rhonchi Cardiovascular: Present: Regular Rate and Rhythm, Normal S1, S2. No: Murmurs Abdomen: No: Tenderness, Distention, Peritoneal Signs, Rebound, Guarding Lower Extremity: Present: Edema (trace of edema), NORMAL PULSES, Neurovascularly Intact. No: Tenderness, Deformity Neurological: Present: GCS=15, CN II-XII Intact, Speech Normal Skin: Present: Warm, Dry, Normal Color. No: Rashes Medical Decision Making ED Course and Treatment: 10/27/17 Impression: 67 year old male with SOB and trace edema in bilateral lower extremities. Differential Diagnosis included but are not limited to: CHF exacerbation vs Anxieety Plan: -- EKG -- Chest X-ray -- Lasix -- Labs -- Urinalysis -- Reassess and disposition Prior Visits: Notes and results from previous visits were reviewed. Patient was last seen in the emergency department on 10/25/17 Progress Notes: EKG: Ordered, reviewed, and independently interpreted the EKG. Rate : 100 BPM Rhythm : atrial fibrillation Interpretation : No ST-segment elevations or depressions, no T-wave inversions, normal intervals. Comparison : 10/25/17 10/27/17 13:45 Chest X-ray: Creator : Patrick Piña MD COMPARISON: 10/25/2017 FINDINGS: LUNGS: No active pulmonary disease. PLEURA: No significant pleural effusion identified, no pneumothorax apparent. CARDIOVASCULAR: Moderate cardiomegaly OSSEOUS STRUCTURES: No significant abnormalities. VISUALIZED UPPER ABDOMEN: Normal. OTHER FINDINGS: None. IMPRESSION: No active disease. 10/27/17 16:18 Glucose elevated and treated with insulin with improvement. Case was discussed with Dr. Sarah Araiza, who knows patient well. He just saw him in the office this week and so did his soon this week as well. There may be an element of anxiety. He reported that he had a normal cardiac cath and cleared by his console assembler. If he's feeling better he can follow up with him in his office this week. Patient is feels completely better. He no longer has any shortness of breathe. O2 sat on RA now is 97%. He denies any chest pain. His EKG is no change from previous and no acute process. CXR nl. Patient was explained his lab results and cxr. He was advised to follow up with his PMD and his console assembler this week. He was advised to return to the ED if symptoms worsen or any other concerns. - Lab Interpretations Lab Results: 10/27/17 13:00 10/27/17 13:00 Lab Results 10/27/17 14:55: POC Glucose (mg/dL) 319 H 10/27/17 14:30: Urine Color Yellow, Urine Appearance Clear, Urine pH 5.5, Ur Specific [place] 1.015, Urine Protein Negative, Urine Glucose (UA) >=1000, Urine Ketones Negative, Urine Blood Negative, Urine Nitrate Negative, Urine Bilirubin Negative, Urine Urobilinogen 0.2, Ur Leukocyte Esterase Negative 10/27/17 14:04: POC Glucose (mg/dL) 318 H 10/27/17 13:48: pO2 42, VBG pH 7.36, VBG pCO2 49.0, VBG HCO3 27.7, VBG Total CO2 29.2 H, VBG O2 Sat (Calc) 78.7 H, VBG Base Excess 1.5, VBG Potassium 4.2, Glucose 396 H, Lactate 2.8 H, FiO2 21.0, Sodium 132.0, Chloride 97.0 L, Venous Blood Potassium 4.2 10/27/17 13:07: POC Glucose (mg/dL) 365 H 10/27/17 13:00: Sodium 133, Potassium 4.4, Chloride 96 L, Carbon Dioxide 25, Anion Gap 17, BUN 21, Creatinine 1.0, Est GFR ( Amer) > 60, Est GFR (Non- Af Amer) > 60, Random Glucose 410 H* D, Calcium 9.7, Lactate Dehydrogenase 449, Total Creatine Kinase 39, Troponin I 0.03, NT-Pro-B Natriuret Pep 3460 H 10/27/17 13:00: PT 13.6 H, INR 1.18 H, APTT 30.1 10/27/17 13:00: WBC 10.5 D, RBC 4.99, Hgb 15.5, Hct 46.8, MCV 93.8, MCH 31.1, MCHC 33.1, RDW 12.2, Plt Count 234, MPV 12.9 H, Gran % 76.3 H, Lymph % (Auto) 16.1 L, [place] % (Auto) 7.1 H, Eos % (Auto) 0.3 L, Baso % (Auto) 0.2, Gran # 8.03 H, Lymph # (Auto) 1.7, [place] # (Auto) 0.8 H, Eos # (Auto) 0.0, Baso # (Auto) 0.02 I have reviewed the lab results: Yes - RAD Interpretation Radiology Orders: 10/27/17 13:13 CHEST PORTABLE [RAD] Stat Teachers Aide: Radiologist - EKG Interpretation Interpreted by ED Physician: Yes Type: 12 lead EKG - Medication Orders Current Medication Orders: Discontinued Medications Furosemide (Lasix) 40 mg IVP STAT STA Stop: 10/27/17 13:13 Last Admin: 10/27/17 13:55 Dose: 40 mg MAR Blood Pressure Document 10/27/17 13:55 SS (Rec: 10/27/17 13:56 SS [id number]) Blood Pressure Blood Pressure (100/60-150/90) 121/71 IVP Administration Document 10/27/17 13:55 SS (Rec: 10/27/17 13:56 SS [id number]) Charges for Administration # of IVP Administrations 1 Insulin Human Regular (Humulin R) 5 units SC STAT STA Stop: 10/27/17 13:43 Last Admin: 10/27/17 14:13 Dose: Insulin Human Regular (Humulin R) 4 units SC STAT STA Stop: 10/27/17 14:10 Last Admin: 10/27/17 14:10 Dose: 4 units MAR Blood Glucose Document 10/27/17 14:10 SS (Rec: 10/27/17 14:12 SS [id number]) Blood Glucose Finger Stick Blood Glucose (70-120) 317 Subcutaneous Administrations Document 10/27/17 14:10 SS (Rec: 10/27/17 14:12 SS [id number]) Charges for Administration # of Subcutaneous Administrations 1 - Scribe Statement The provider has reviewed the documentation as recorded by the Myke Deleon Provider Scribe Attestation: All medical record entries made by the Scribe were at my direction and personally dictated by me. I have reviewed the chart and agree that the record accurately reflects my personal performance of the history, physical exam, medical decision making, and the department course for this patient. I have also personally directed, reviewed, and agree with the discharge instructions and disposition. Disposition/Present on Arrival - Present on Arrival Any Indicators Present on Arrival: Yes History of DVT/PE: No History of Uncontrolled Diabetes: Yes Urinary Catheter: No History Surgical Site Infection Following: None - Disposition Have Diagnosis and Disposition been Completed?: Yes Diagnosis: CHF (congestive heart failure), Hyperglycemia Disposition: HOME/ ROUTINE Disposition Time: 16:20 Patient Plan: Discharge Condition: IMPROVED Discharge Instructions (ExitCare): Heart Failure, Adult (DC), Heart Failure (ED ) Additional Instructions: Mr Fountain, thank you for letting us take care of you today. Your provider was Dr. Crandall. You were treated for Congestive Heart Failure. The emergency medical care you received today was directed at your acute symptoms. If you were prescribed any medication, please fill it and take as directed. It may take several days for your symptoms to resolve. Return to the Emergency Department if your symptoms worsen, do not improve, or if you have any other problems. Please contact your doctor or call one of the physicians/clinics you have been referred to that are listed on the Patient Visit Information form that is included in your discharge packet. Bring any paperwork you were given at discharge with you along with any medications you are taking to your follow up visit. Our treatment cannot replace ongoing medical care by a primary care provider (PCP) outside of the emergency department. Thank you for allowing the [facility] team to be part of your care today. If you had an X-Ray or CT scan: A Radiologist will review the ED reading if any change in treatment is needed we will contact you. If you had a blood, urine, or wound culture: It will take several days for the results, if any change in treatment is needed we will contact you. If you had an STI test: It will take 48 hours for the results. Please call after 1 week if you have not heard back. Referrals: Sameer Araiza MD [Staff Provider] - Follow up with primary Forms: [employer] (Italian), WORK NOTE
[2017-10-27 13:18] VITALS: RESP 18; TEMP 97.8
[2017-10-27 13:29] LABS: BASO # 0.02 K/mm3 (0.0-2.0); BASO % 0.2 % (0.0-3.0); EOS % 0.3 % (1.5-5.0); GRAN # 8.03 (1.4-6.5); GRAN % 76.3 % (50.0-68.0); HEMOGLOBIN 15.5 g/dL (14.0-18.0); LYMPH # 1.7 (1.2-3.4); LYMPH % 16.1 % (22.0-35.0); MEAN CELL VOLUME 93.8 fl (80.0-105.0); MEAN CORPUSCULAR HEMOGLOBIN 31.1 pg (25.0-35.0); MEAN CORPUSCULAR HGB CONC 33.1 g/dl (31.0-37.0); MEAN PLATELET VOLUME 12.9 fl (7.0-11.0); MONO # 0.8 (0.1-0.6); MONO % 7.1 % (1.0-6.0); RBC 4.99 10^6/uL (3.5-6.1); RED CELL DISTRIBUTION WIDTH 12.2 % (11.5-14.5); WHITE BLOOD COUNT 10.5 10^3/ul (4.5-11.0)
[2017-10-27 13:42] LABS: BLOOD UREA NITROGEN 21 mg/dL (7-21); CALCIUM 9.7 mg/dL (8.4-10.5); GFR AFRICAN-AMERICAN > 60; GFR NON-AFRICAN AMERICAN > 60
--- NOTE | 2017-10-27 13:45 | RAD ---
HISTORY: sob r/o chf COMPARISON: 10/25/2017 FINDINGS: LUNGS: No active pulmonary disease. PLEURA: No significant pleural effusion identified, no pneumothorax apparent. CARDIOVASCULAR: Moderate cardiomegaly OSSEOUS STRUCTURES: No significant abnormalities. VISUALIZED UPPER ABDOMEN: Normal. OTHER FINDINGS: None. IMPRESSION: No active disease.
[2017-10-27 13:49] LABS: B-TYPE NATRIURETIC PEPTIDE 3460 pg/mL (0-450); TROPONIN I 0.03 ng/mL
[2017-10-27 13:51] LABS: INR 1.18 (0.93-1.08); PARTIAL THROMBOPLASTIN TIME 30.1 Seconds (25.1-36.5); PROTHROMBIN TIME 13.6 SECONDS (9.4-12.5)
[2017-10-27 14:03] LABS: VENOUS BLOOD GAS BASE EXCESS 1.5 mmol/L (0.0-2.0); VENOUS BLOOD GAS PO2 42 mm/Hg (30-55); VENOUS BLOOD PH 7.36 (7.32-7.43)
[2017-10-27] MEDS: Insulin Regular 1 UNITS/0.01 ML ML SC STA ×2 (14:07→14:13)
[2017-10-27] MEDS ORDERED: Insulin Regular 1 UNITS/0.01 ML ML SC STA (14:09)
[2017-10-27 14:50] LABS: PH,URINE 5.5 (4.7-8.0); URINE BILIRUBIN NEGATIVE (NEGATIVE); URINE BLOOD NEGATIVE (NEGATIVE); URINE GLUCOSE (UA) >=1000 mg/dL (NEGATIVE); URINE LEUKOCYTE ESTERASE NEGATIVE Leu/uL (NEGATIVE); URINE PROTEIN NEGATIVE mg/dL (<30 mg/dL); URINE UROBILINOGEN 0.2 E.U./dL (<1 E.U./dL)
[2017-10-27 14:52] LABS: URINE APPEARANCE CLEAR (CLEAR); URINE COLOR YELLOW (YELLOW)
[2017-10-27 15:24] VITALS: BP 130/95; O2SAT 97
[2017-10-27 15:35] VITALS: PULSE 79
--- NOTE | 2017-10-27 17:21 | CARD ---
APPROVED REPORT EKG Measurement Heart [id number] <Conclusion> Atrial fibrillation with rapid ventricular response Left axis deviation Right bundle branch block Inferior infarct, age undetermined Abnormal ECG
== END 2017-10-27 15:45 | disposition home or self-care (01) ==
LOC: ED 12:55
DX: I50.9 Heart failure, unspecified (principal); E10.65 Type 1 diabetes mellitus with hyperglycemia; I48.91 Unspecified atrial fibrillation; Z79.01 Long term (current) use of anticoagulants; Z87.891 Personal history of nicotine dependence
CPT/HCPCS: 71045; 80048; 81003; 82550; 82803; 82948; 83615; 83880; 84484; 85025; 85610; 85730; 93005; 96372; 96374; 99283; J1940

== ENCOUNTER 2017-10-28 22:07 | Inpatient (IN) | payer MEDICARE, OTHER ==
[2017-10-28 22:35] VITALS: BMI 29.5
--- NOTE | 2017-10-28 23:02 | ED PDOC ---
Arrival/HPI - General Chief Complaint: Shortness Of Breath Time Seen by Provider: 10/28/17 22:31 Historian: Patient - History of Present Illness Narrative History of Present Illness (Text): 10/28/17 23:02 Alton Fountain is a 67 year old male, whose past medical history includes atrial fibrillation, diabetes, COPD, CHF, and hypertension, who presents to the Emergency department complaining of continued shortness of breath, worse when lying down, for the past few days. Patient also reports associated left-sided chest tightness on occasion and bilateral lower extremity swelling. Patient states he was seen in the Emergency department on 10/27/17 for similar complaints and was discharged home. Patient states shortness of breath continued today, for which he took an extra dose of Lasix, and elevated blood sugar. Patient also reports he underwent a cardiac catheterization on 10/25/2017 , which was negative. Patient denies any fever, chills, nausea, vomiting, diarrhea, urinary symptoms, back pain, neck pain, headache, dizziness, or any other complaints. Symptom Onset: Gradual Symptom Course: Unchanged Activities at Onset: Light Context: Home Past Medical History - Provider Review Nursing Documentation Reviewed: Yes - Infectious Disease Hx of Infectious Diseases: None - Tetanus Immunization Tetanus Immunization: Unknown - Cardiac Hx Cardiac Disorders: No - Pulmonary Hx Respiratory Disorders: Yes (SMOKED PPD CIGARETTES QUIT) Hx Chronic Obstructive Pulmonary Disease (COPD): Yes - Neurological Hx Neurological Disorder: No - HEENT Hx HEENT Disorder: No - Renal Hx Renal Disorder: No - Endocrine/Metabolic Hx Endocrine Disorders: Yes Hx Diabetes Mellitus Type 1: Yes - Hematological/Oncological Hx Blood Disorders: No - Integumentary Hx Dermatological Disorder: No - Musculoskeletal/Rheumatological Hx Musculoskeletal Disorders: No - Gastrointestinal Hx Gastrointestinal Disorders: No - Genitourinary/Gynecological Hx Genitourinary Disorders: No - Psychiatric Hx Psychophysiologic Disorder: No Hx Substance Use: No - Surgical History Hx Coronary Stent: Yes - Anesthesia Hx Anesthesia: No Hx Anesthesia Reactions: No Hx Malignant Hyperthermia: No - Suicidal Assessment Feels Threatened In Home Enviroment: No Family/Social History - Physician Review Nursing Documentation Reviewed: Yes Family/Social History: Unknown Family HX Smoking Status: Former Smoker Hx Alcohol Use: Yes (OCCASIONAL) Hx Substance Use: No Substance used: Cocaine Hx Substance Use Treatment: No Allergies/Home Meds Allergies/Adverse Reactions: Allergies No Known Allergies Allergy (Verified 10/25/17 22:23) Home Medications: Home Meds Medication Instructions Recorded Confirmed Gabapentin [Neurontin] 300 mg PO TID 08/28/17 10/28/17 GlipiZIDE [Glucotrol] 5 mg PO BID 08/28/17 10/28/17 metFORMIN [glucOPHAGE] 1,000 mg PO BID 08/28/17 10/28/17 [id number] CD [Cardizem CD] 180 mg PO DAILY 09/23/17 10/28/17 Esomeprazole Magnesium [Nexium] 40 mg PO DAILY 09/27/17 10/28/17 Furosemide [Lasix] 40 mg PO BID 09/27/17 10/28/17 Warfarin Sodium [Jantoven] 5 mg PO DAILY 09/27/17 10/28/17 Metoprolol Norman/Hydrochlorothiaz 50 mg PO DAILY 10/25/17 10/28/17 [Metoprolol ER-Hctz 50-12.5 mg] Review of Systems - Physician Review All systems were reviewed & negative as marked: Yes - Review of Systems Constitutional: Normal. absent: Fevers Eyes: Normal ENT: Normal Respiratory: SOB. absent: Cough Cardiovascular: Chest Pain, Orthopnea Gastrointestinal: Normal. absent: Abdominal Pain, Diarrhea, Nausea, Vomiting Genitourinary Male: Normal. absent: Dysuria, Frequency, Hematuria, Urinary Output Changes Musculoskeletal: Other (+bilateral lower extremity swelling). absent: Neck Pain Skin: Normal. absent: Rash Neurological: Normal. absent: Headache, Dizziness Endocrine: Other (+elevated blood sugar) Hemo/Lymphatic: Normal Psychiatric: Normal Physical Exam Vital Signs Reviewed: Yes Vital Signs Temp Pulse Resp BP Pulse Ox 10/29/17 05:40 97.6 F 87 18 106/80 94 L 10/29/17 05:08 85 18 127/83 97 10/29/17 03:49 82 24 108/79 98 10/29/17 01:29 87 20 111/94 H 97 10/28/17 22:32 97.6 F 85 24 121/53 L 94 L Temperature: Afebrile Blood Pressure: Normal Pulse: Regular Respiratory Rate: Normal Appearance: Positive for: Well-Appearing, Non-Toxic, Comfortable Pain Distress: None Mental Status: Positive for: Alert and Oriented X 3 Finger Stick Blood Glucose: 383 - Systems Exam Head: Present: Atraumatic, Normocephalic Pupils: Present: PERRL Extroacular Muscles: Present: EOMI Conjunctiva: Present: Normal Mouth: Present: Moist Mucous Membranes Neck: Present: Normal Range of Motion Respiratory/Chest: Present: Clear to Auscultation, Good Air Exchange. No: Respiratory Distress, Accessory Muscle Use Cardiovascular: Present: Regular Rate and Rhythm, Normal S1, S2. No: Murmurs Abdomen: No: Tenderness, Distention, Peritoneal Signs Back: Present: Normal Inspection Upper Extremity: Present: Normal Inspection. No: Cyanosis, Edema Lower Extremity: Present: Edema (1+ pitting edema) Neurological: Present: GCS=15, CN II-XII Intact, Speech Normal Skin: Present: Warm, Dry, Normal Color. No: Rashes Psychiatric: Present: Alert, Oriented x 3, Normal Insight, Normal Concentration Medical Decision Making ED Course and Treatment: 10/28/17 23:02 Impression: 67 year old male complaining of continued shortness of breath, bilateral lower extremity swelling, occasional chest tightness, and elevated blood sugar. Plan: -- CTA Chest -- EKG -- Chest X-ray -- Labs, cardiac enzymes, BNP -- Reassess and disposition Prior Visits: Notes and results from previous visits were reviewed. On 10/27/2017, pt was seen in the Emergency department for shortness of breath. Chest X-ray performed yesterday was negative. Pt was d/c home. Progress Notes: Reviewed EKG, a fib at 98 bpm. LAD. RBBB. Inferior infarct. Non-specific ST/T wave changes. 10/29/17 02:23 CTA Chest shows: Cardiomegaly. No pulmonary embolism. No aortic aneurysm. There is a moderate right pleural effusion. Mediastinal and hilar lymph nodes are present. Hazy groundglass opacity/infiltrate in the right upper and right lower lungs possibly of infectious/inflammatory etiology or may be related to developing edema. Small areas of bibasilar atelectasis. Suggestion of early emphysematous changes in the apices. Old fractures of the left lateral seventh and eighth ribs There is suggestion of a small amount of haziness in the right upper quadrant the joanna hepatis region although this area is only minimally imaged. Recommend clinical correlation with regards to symptoms in this region. IMPRESSION: Moderate right pleural effusion. Groundglass opacity/infiltrate in the right lung possibly of infectious/ inflammatory etiology or may be related to developing edema. 10/29/17 02:[address] Roberto Araiza, CTA Chest results were discussed in detail and states pt is stable for discharge home with outpt follow-up. Requests pt be placed on course of outpatient Levaquin.Pt. request waiting for his prior to leaving. 10/29/17 05:35 Case discussed again with Dr. Araiza,Pt.still c/o intermittent shortness of breath with dyspnea on exertion when attempting to ambulate. now accepts to his service.Pt will go to [facility] observation for dyspnea, COPD, and pneumonia. Pulmonary consult to follow. - Lab Interpretations Lab Results: 10/28/17 22:50 10/28/17 22:50 Lab Results 10/29/17 05:05: POC Glucose (mg/dL) 223 H 10/29/17 02:35: POC Glucose (mg/dL) 276 H 10/28/17 22:50: WBC 10.1, RBC 4.76, Hgb 14.9, Hct 44.8, MCV 94.1, MCH 31.3, MCHC 33.3, RDW 12.3, Plt Count 224, MPV 13.2 H 10/28/17 22:50: Sodium 133, Potassium 4.4, Chloride 97 L, Carbon Dioxide 25, Anion Gap 15, BUN 25 H, Creatinine 1.0, Est GFR ( Amer) > 60, Est GFR ( Non-Af Amer) > 60, Random Glucose 431 H*, Calcium 9.3, Total Bilirubin 0.3, AST 24, ALT 43, Alkaline Phosphatase 80, Lactate Dehydrogenase 411, Total Creatine Kinase 33 L, Troponin I 0.03, NT-Pro-B Natriuret Pep 3240 H, Total Protein 6.5, Albumin 3.7, Globulin 2.8, Albumin/Globulin Ratio 1.3 10/28/17 22:50: PT 14.0 H, INR 1.22 H, APTT 29.9 I have reviewed the lab results: Yes - RAD Interpretation Radiology Orders: 10/28/17 22:48 CHEST PORTABLE [RAD] Stat 10/28/17 23:05 ANGIO CHEST PE PROTOCOL [CT] Stat Tax Compliance Agent: Radiologist - EKG Interpretation Interpreted by ED Physician: Yes Type: 12 lead EKG - Medication Orders Current Medication Orders: Alprazolam (Xanax) 0.25 mg PO BID PRN; Protocol PRN Reason: Anxiety Stop: 11/05/17 10:01 Last Admin: 10/29/17 20:08 Dose: 0.25 mg Behavioural Document 10/29/17 20:08 SD (Rec: 10/29/17 20:09 SD [facility] [id number]) Maintenance Maintenance Dose Yes Re-Assess: Reassess Psych Meds Document 10/29/17 21:08 SD (Rec: 10/29/17 21:22 SD [facility] [id number]) Reassess Psych Med Effective Budesonide (Pulmicort Respules) 0.5 mg IH BIDRESP [facility] Last Admin: 10/29/17 20:35 Dose: 0.5 mg Diltiazem HCl (Cardizem Cd) 180 mg PO DAILY [facility] Last Admin: 10/29/17 10:21 Dose: 180 mg MAR Pulse and Blood Pressure Document 10/29/17 10:21 CARMEN (Rec: 10/29/17 10:25 [id number] Pulse Pulse Rate (60-90) 97 Blood Pressure Blood Pressure (100/60-150/90) 119/78 Furosemide (Lasix) 40 mg IVP BID [facility] Last Admin: 10/29/17 17:37 Dose: 40 mg MAR Blood Pressure Document 10/29/17 17:37 CARMEN (Rec: 10/29/17 17:37 [id number][facility] Blood Pressure Blood Pressure (100/60-150/90) 113/81 IVP Administration Document 10/29/17 17:37 CARMEN (Rec: 10/29/17 17:37 [id number] Charges for Administration # of IVP Administrations 1 Gabapentin (Neurontin) 300 mg PO TID [facility] PRN Reason: Protocol Last Admin: 10/29/17 17:36 Dose: 300 mg Behavioural Document 10/29/17 17:36 CARMEN (Rec: 10/29/17 17:36 [id number] Behavior Behavior Comment diabetic neuropathy Re-Assess: Reassess Psych Meds Document 10/29/17 18:36 CARMEN (Rec: 10/29/17 20:27 CARMEN [id number]) Reassess Psych Med Effective Glipizide (Glucotrol) 10 mg PO 0730,1630 [facility] Last Admin: 10/29/17 17:36 Dose: 10 mg Insulin Detemir (Levemir) 10 unit SC QPM [facility] Last Admin: 10/29/17 17:36 Dose: 10 unit MAR Blood Glucose Document 10/29/17 17:36 CARMEN (Rec: 10/29/17 17:36 [id number]) Blood Glucose Finger Stick Blood Glucose (70-120) 188 Subcutaneous Administrations Document 10/29/17 17:36 CARMEN (Rec: 10/29/17 17:36 [place] [id number]) Injection Site MAR Injection Site Left Abdomen Charges for Administration # of Subcutaneous Administrations 1 Insulin Human Regular (Humulin R Med) 0 units SC ACHS [facility] PRN Reason: Protocol Last Admin: 10/29/17 17:35 Dose: 1 units MAR Blood Glucose Document 10/29/17 17:35 CARMEN (Rec: 10/29/17 17:36 [place] [id number]) Blood Glucose Finger Stick Blood Glucose (70-120) 188 Subcutaneous Administrations Document 10/29/17 17:35 CARMEN (Rec: 10/29/17 17:36 [place] [id number]) Injection Site MAR Injection Site Right Abdomen Charges for Administration # of Subcutaneous Administrations 1 Levalbuterol HCl (Xopenex) 1.25 mg IH Q8H PRN PRN Reason: Shortness of Breath Lisinopril (Zestril) 5 mg PO DAILY [facility] Metformin HCl (Glucophage) 1,000 mg PO BID [facility] Last Admin: 10/29/17 17:37 Dose: 1,000 mg Pantoprazole Sodium (Protonix Inj) 40 mg IVP DAILY [facility] Last Admin: 10/29/17 10:26 Dose: 40 mg IVP Administration Document 10/29/17 10:26 CARMEN (Rec: 10/29/17 10:26 [email or web address]) Charges for Administration # of IVP Administrations 1 Tiotropium [place] (Spiriva) 18 mcg IH DAILY [facility] Last Admin: 10/29/17 14:39 Dose: 18 mcg Warfarin Sodium (Coumadin) 5 mg PO 1800 [facility] PRN Reason: Protocol Last Admin: 10/29/17 17:36 Dose: 5 mg Discontinued Medications Albuterol/Ipratropium (Duoneb 3 Mg/0.5 Mg (3 Ml) Ud) 3 ml IH Q4H PRN PRN Reason: Shortness of Breath Last Admin: 10/29/17 06:14 Dose: 3 ml Albuterol/Ipratropium (Duoneb 3 Mg/0.5 Mg (3 Ml) Ud) 3 ml IH Q4H LEONARDO Stop: 10/29/17 10:31 Last Admin: 10/29/17 13:34 Dose: 3 ml Levofloxacin/Dextrose (Levaquin 750mg) 750 mg in 150 mls @ 100 mls/hr IV STAT STA PRN Reason: Protocol Stop: 10/29/17 04:26 Last Admin: 10/29/17 03:26 Dose: 100 mls/hr eMAR Start Stop Document 10/29/17 03:26 CNR (Rec: 10/29/17 03:31 CNR [id number]) Intravenous Solution Start Date 10/29/17 Start Time 03:31 End Date 10/29/17 End time 05:01 Total Infusion Time 90 Insulin Human Regular (Humulin R) 6 units SC STAT STA Stop: 10/28/17 23:31 Last Admin: 10/28/17 23:38 Dose: 6 units Subcutaneous Administrations Document 10/28/17 23:38 CNR (Rec: 10/28/17 23:39 CNR [id number]) Injection Site MAR Injection Site Left Abdomen Charges for Administration # of Subcutaneous Administrations 1 Insulin Human Regular (Humulin R Low) 0 units SC ACHS LEONARDO PRN Reason: Protocol Last Admin: 10/29/17 08:30 Dose: 2 units MAR Blood Glucose Document 10/29/17 08:30 CARMEN (Rec: 10/29/17 08:31 CARMEN [id number]) Blood Glucose Finger Stick Blood Glucose (70-120) 243 Subcutaneous Administrations Document 10/29/17 08:30 CARMEN (Rec: 10/29/17 08:31 CARMEN [id number]) Injection Site MAR Injection Site Left Abdomen Charges for Administration # of Subcutaneous Administrations 1 Metoprolol Succinate (Toprol Xl) 50 mg PO BRK [facility] Last Admin: 10/29/17 08:30 Dose: 50 mg MAR Pulse and Blood Pressure Document 10/29/17 08:30 CARMEN (Rec: 10/29/17 08:30 CARMEN [id number]) Pulse Pulse Rate (60-90) 87 Blood Pressure Blood Pressure (100/60-150/90) 106/80 Polyethylene Glycol (Miralax) 17 gm PO ONCE ONE Stop: 10/29/17 17:49 Last Admin: 10/29/17 18:06 Dose: 17 gm - Scribe Statement The provider has reviewed the documentation as recorded by the Dineshibreji Fontaine Provider Scribe Attestation: All medical record entries made by the Scribe were at my direction and personally dictated by me. I have reviewed the chart and agree that the record accurately reflects my personal performance of the history, physical exam, medical decision making, and the department course for this patient. I have also personally directed, reviewed, and agree with the discharge instructions and disposition. Disposition/Present on Arrival - Present on Arrival Any Indicators Present on Arrival: No History of DVT/PE: No History of Uncontrolled Diabetes: Yes Urinary Catheter: No History of Decub. Ulcer: No History Surgical Site Infection Following: None - Disposition Have Diagnosis and Disposition been Completed?: Yes Diagnosis: Dyspnea, Pneumonia, Pleural effusion, CHF (congestive heart failure) Disposition: HOSPITALIZED Disposition Time: 05:35 Patient Plan: Observation Patient Problems: Current Active Problems Problem Status Onset Dyspnea Acute Pleural effusion Acute Pneumonia Acute Condition: STABLE
[2017-10-28 23:11] LABS: HEMOGLOBIN 14.9 g/dL (14.0-18.0); MEAN CELL VOLUME 94.1 fl (80.0-105.0); MEAN CORPUSCULAR HEMOGLOBIN 31.3 pg (25.0-35.0); MEAN CORPUSCULAR HGB CONC 33.3 g/dl (31.0-37.0); MEAN PLATELET VOLUME 13.2 fl (7.0-11.0); RBC 4.76 10^6/uL (3.5-6.1); RED CELL DISTRIBUTION WIDTH 12.3 % (11.5-14.5); WHITE BLOOD COUNT 10.1 10^3/ul (4.5-11.0)
[2017-10-28 23:28] LABS: INR 1.22 (0.93-1.08); PARTIAL THROMBOPLASTIN TIME 29.9 Seconds (25.1-36.5)
[2017-10-28] MEDS ORDERED: Insulin Regular 1 UNITS/0.01 ML ML SC STA (23:30)
[2017-10-28 23:33] LABS: B-TYPE NATRIURETIC PEPTIDE 3240 pg/mL (0-450); TROPONIN I 0.03 ng/mL
[2017-10-28] MEDS ORDERED: Iohexol 300 100 ML IJ ONE (23:40)
[2017-10-28 23:44] LABS: ALB/GLOB RATIO 1.3 (1.1-1.8); ALBUMIN 3.7 g/dL (3.0-4.8); ALT/SGPT 43 U/L (7-56); AST/SGOT 24 U/L (17-59); BLOOD UREA NITROGEN 25 mg/dL (7-21); CALCIUM 9.3 mg/dL (8.4-10.5); GFR AFRICAN-AMERICAN > 60; GFR NON-AFRICAN AMERICAN > 60
[2017-10-29] MEDS ORDERED: Azithromycin 500MG/NS 250ml 500 MG/250 ML BAG IV STA (02:50)
[2017-10-29] MEDS ORDERED: cefTRIAXone 1 gm 1 GM/100 ML BAG IV STA (02:50)
--- NOTE | 2017-10-29 02:53 | CT ---
EXAM: CT Angiography Chest With Intravenous Contrast EXAM DATE/TIME: 10/28/2017 11:05 PM CLINICAL HISTORY: 67 years old, male; Signs and symptoms; Shortness of breath; Additional info: SOB TECHNIQUE: Axial computed tomographic angiography images of the chest with intravenous contrast using pulmonary embolism protocol. All CT scans at this facility use one or more dose reduction techniques, viz.: automated exposure control; ma/kV adjustment per patient size (including targeted exams where dose is matched to indication; i.e. head); or iterative reconstruction technique. MIP reconstructed images were created and reviewed. Coronal and sagittal reformatted images were created and reviewed. CONTRAST: 100 mL of OMNI 300 administered intravenously. COMPARISON: DX - CHEST PORTABLE 2017-10-28 23:04 FINDINGS: Cardiomegaly. No pulmonary embolism. No aortic aneurysm. There is a moderate right pleural effusion. Mediastinal and hilar lymph nodes are present. Hazy groundglass opacity/infiltrate in the right upper and right lower lungs possibly of infectious/inflammatory etiology or may be related to developing edema. Small areas of bibasilar atelectasis. Suggestion of early emphysematous changes in the apices. Old fractures of the left lateral seventh and eighth ribs There is suggestion of a small amount of haziness in the right upper quadrant the joanna hepatis region although this area is only minimally imaged. Recommend clinical correlation with regards to symptoms in this region. IMPRESSION: Moderate right pleural effusion. Groundglass opacity/infiltrate in the right lung possibly of infectious/inflammatory etiology or may be related to developing edema.
[2017-10-29] MEDS ORDERED: levoFLOXacin 750 mg in D5W 750 MG/150 ML BAG IV STA (02:57)
[2017-10-29] MEDS ORDERED: Albuterol-Ipratrop 3 mg / 0.5 (3 ml) UD IH PRN ×2 (05:42→08:24)
[2017-10-29] MEDS ORDERED: Insulin Reg-LOW-Coverage SC SCH (07:30)
[2017-10-29] MEDS ORDERED: Metoprolol Succinate 50 mg XL Tab PO SCH (08:30)
--- NOTE | 2017-10-29 08:54 | RAD ---
HISTORY: sob COMPARISON: 10/27/2017 FINDINGS: LUNGS: No active pulmonary disease. PLEURA: No significant pleural effusion identified, no pneumothorax apparent. CARDIOVASCULAR: Moderate cardiomegaly. Mild vascular congestion OSSEOUS STRUCTURES: No significant abnormalities. VISUALIZED UPPER ABDOMEN: Normal. OTHER FINDINGS: None. IMPRESSION: Moderate cardiomegaly. Mild vascular congestion
[2017-10-29] MEDS: diltiaZEM 180 mg/24 Hours CD Cap PO SCH (10:21)
[2017-10-29] MEDS ORDERED: Albuterol-Ipratrop 3 mg / 0.5 (3 ml) UD IH SCH (10:30)
[2017-10-29] MEDS: Insulin Reg-MEDIUM-Coverage SC SCH ×3 (11:52→22:54)
--- NOTE | 2017-10-29 13:16 | HP ---
HISTORY OF PRESENT ILLNESS: The patient is a 67 year old man with a past medical history of hypertension, hyperlipidemia, type 2 diabetes mellitus and AFib who presented to [facility] for evaluation of a 2 day history of exertional dyspnea. The patient was seen in his PMD's office 3 days prior to presentation with the aforementioned symptoms and was prescribed an inhaler for COPD. The patient has a history of non-compliance with his medications and is unclear if the inhaler was used as directed. Given his pulmonary symptoms he opted for ED evaluation so that he may be assessed by a percussion instrument repairer. He reports scant cough associated with his symptoms but otherwise denies fevers, chills, rigors, hemoptysis or lower extremity edema. Upon arrival to the ED he was noted to be afebrile and hemodynamically stable. He was noted to have an oxygen saturation of 94% on room air but due to his reported distress he was admitted for pulmonary evaluation. PAST MEDICAL HISTORY: As per HPI, also GERD and insomnia. PAST SURGICAL HISTORY: As per HPI. ALLERGIES: NKDA. MEDICATIONS: Diltiazem CD 180 mg p.o. daily, Warfarin 5 mg p.o. daily, Metformin 1000 mg p.o. b.i.d., Glipizide 10 mg p.o. b.i.d., Gabapentin 300 mg p.o. t.i.d., Aspirin 81 mg p.o. daily, Nexium 40 mg p.o. daily, Lisinopril 5 mg p.o. daily and Lasix 40 mg p.o. b.i.d. FAMILY HISTORY: Noncontributory. SOCIAL HISTORY: The patient reports a 30-pack year smoking history and social alcohol use. He denies illicit drug abuse. REVIEW OF SYSTEMS: A 14-point review of systems is negative except as per HPI. PHYSICAL EXAMINATION VITAL SIGNS: Temperature 97.3, pulse 87, blood pressure 106/80, respiratory rate 20, oxygen saturation 97% on 2 liters nasal cannula. GENERAL: No apparent distress. HEENT: PERRL. EOMI. No scleral icterus. No conjunctival pallor. NECK: Supple with full range of motion. No JVD. No bruits. LUNGS: Decreased breath sounds at the bases with crackles to the right base. CARDIOVASCULAR: Irregularly irregular. Normal S1 and S2. ABDOMEN: Normoactive bowel sounds, soft, nontender, nondistended. EXTREMITIES: No clubbing, cyanosis, or edema. NEUROLOGIC: Awake, alert, and oriented x3. No focal motor deficits. LABORATORY DATA: CBC reviewed and unremarkable. CMP reviewed and unremarkable. BNP 3240. IMAGING STUDIES: 1. Chest x-ray demonstrates cardiomegaly with mild vascular congestion. 2. CT of the chest with IV contrast demonstrates no evidence of PE but does demonstrate moderate right pleural effusion with ground glass opacity/ infiltrates to the right lung concerning for infectious/inflammatory process versus edema. ASSESSMENT: The patient is a 67 year old man with a past medical history of AFib, HTN, T2DM , hyperlipidemia and GERD who presented for evaluation of a 2 day history of exertional dyspnea and who was admitted for management of COPD and to optimize glycemic control. PLAN: 1. Right pleural effusion. CT imaging reviewed. We will check a procalcitonin level to discern CHF vs PNA. Continue with IV diuretics. Input from Dr. Reddy is pending. Continue with supplemental oxygen and bronchodilators as needed. Continue Levaquin 500 mg p.o daily. 2. AFib, rate controlled. Continue Diltiazem CD 180 mg p.o. daily, Aspirin 81 mg p.o. daily and Warfarin 5 mg p.o. daily. Continue to monitor INR daily with goal INR of 2-3. 3. Hypertension. Blood pressure controlled. Continue Diltiazem CD 180 mg p.o. daily and Lisinopril 5 mg p.o. daily. 4. Type 2 diabetes mellitus. Continue Glipizide 10 mg p.o. b.i.d. and Metformin 1000 mg p.o. b.i.d. The patient has extensively been counseled in the past that he will likely require insulin and he is finally agreeable to initiating insulin therapy. We will start Levemir 10 units SC every evening. Continue to monitor fingersticks before meals and at bedtime. 5. GERD. Resume Protonix 40 mg p.o. daily. 6. Prophylaxis. Continue Protonix for GI prophylaxis. DVT prophylaxis is not indicated as the patient is ambulatory. CODE STATUS: Full code. Pedro Araiza MD [facility] # [id number] ROSMERY
--- NOTE | 2017-10-29 14:20 | CARD ---
APPROVED REPORT EKG Measurement Heart [id number] <Conclusion> Atrial fibrillation Left axis deviation Right bundle branch block Minimal voltage criteria for LVH, may be normal variant Inferior infarct, age undetermined Abnormal ECG
[2017-10-29] MEDS: Tiotropium 18 mcg Cap For Inhalation IH SCH (14:39)
[2017-10-29] MEDS: Insulin Detemir 100 units/ml Vial (Levemir) SC SCH (17:36)
[2017-10-29] MEDS ORDERED: POLYETHYLENE GLYCOL 3350 17 GM/Dose PACKET PO ONE (17:48)
[2017-10-29] MEDS: Budesonide 0.5 mg/2 ml Inhal Susp UD IH SCH (20:35)
--- NOTE | 2017-10-29 22:20 | CON ---
DATE: 10/29/2017 PULMONARY CONSULTATION HISTORY OF PRESENT ILLNESS: Mr. Fountain is a 67-year-old man, who came into the hospital several days ago with shortness of breath. The patient has been in the hospital on numerous occasions over the last [id number]. Old records need to be evaluated. The patient presented to the emergency room with complaints of shortness of breath. He had denied chest pain. He has history of atrial fibrillation, diabetes mellitus. Although he was diagnosed as having COPD, he has not been on inhaled bronchodilators. He has a history of congestive heart failure and hypertension. He has a new diabetes doctor which he is yet to see and he was supposed to have an appointment with me in the office which was pending at this time as well. He was seen in the emergency room for this progressive shortness of breath. A CT angio was done to rule out pulmonary embolism. This was negative. In addition, the patient has a long history of smoking 1 to 1-1/2 packs a day for many years. He discontinued this habit 5 years ago. He denies morning expectoration. He does have shortness of breath on exertion upstairs. He does have exertion on walking several blocks as well. His outpatient medication has been reviewed. He is on Neurontin, Glucotrol, Glucophage, Cardizem, Nexium, Lasix, warfarin and metoprolol. ALLERGIES: HE HAS NO KNOWN ALLERGIES. FAMILY HISTORY: Coronary artery disease, hypertension, diabetes mellitus. SOCIAL HISTORY: Former smoker. Occasional alcohol use. Some substance abuse. REVIEW OF SYSTEMS: Positive for dysuria, occasional shortness of breath, history of coronary stents for coronary artery disease, known to have atrial fibrillation. All other systems negative. PHYSICAL EXAMINATION: GENERAL: The patient is comfortable and in no acute respiratory distress. VITAL SIGNS: Stable. Blood pressure 130/70, heart rate 86, respiratory rate 18, temperature 98.6, pulse oximetry 97 on supplemental oxygen. HEENT: Normocephalic, atraumatic. Eyes: PERRLA. EOMs full. Conjunctivae pink. Mouth moist. NECK: Supple. No JVD. No lymphadenopathy. No bruit. No jugular venous distention. CARDIOVASCULAR: Irregular rhythm, tachycardia. S1, S2. No murmurs appreciated. CHEST: Scattered wheezes and rales throughout both lung izquierdo. Decreased breath sounds at base. ABDOMEN: Soft. Bowel sounds normoactive. EXTREMITIES: Reveal trace edema, pitting in nature 1+ only. NEUROLOGIC: No focal findings. Motor, sensory and coordination normal. Deep tendon reflexes normal. Babinski downgoing. SKIN: Warm, moist. No rash or excoriation. LYMPHATICS: Lymphadenopathy - not present. Evaluation of the supraclavicular notch is negative. Cervical, inguinal, axillary areas are free of lymph nodes. LABORATORY FINDINGS: EKG: Atrial fibrillation, nonspecific ST-T wave changes. Chest x-ray: Poor quality, unable to fully evaluate. CT angio shows cardiomegaly, no pulmonary embolism. No aneurysm. There is a moderate right pleural effusion. There are some mediastinal and hilar nodes present on the CAT scan. There are also hazy ground glass opacification/infiltrates in the right upper lobe, right lower lobe, basilar atelectasis, emphysema seen with bullae throughout. Old fracture of the left 7th and 8th ribs. Blood work: White count 10, hemoglobin 14.9, hematocrit 44.8, platelet count 224,000. Sodium 133, potassium 4.4, chloride 97, CO2 of 25, BUN 25, creatinine 1, glucose 431. CLINICAL IMPRESSION: 1. Respiratory insufficiency. 2. Congestive heart failure. 3. Right pleural effusion. 4. Cardiomegaly. 5. Coronary artery disease. 6. Past smoking history. 7. Hyperglycemia. 8. Chronic obstructive pulmonary disease by history and CAT scan. PLAN: We will continue his vigorous bronchodilator and inhaled corticosteroid. We changed bronchodilator to a more "cardiac safe" medication such as Xopenex with his history of atrial fibrillation and coronary artery disease. The patient will need a complete pulmonary function study after the congestive heart failure has resolved. We will follow closely during this hospitalization and follow Mr. Fountain as an outpatient in the office. Thank you for giving us the opportunity to see this gentleman in pulmonary evaluation. Gwyn Irving MD [facility]
--- NOTE | 2017-10-30 03:57 | CP.PCM.PN ---
Subjective - Date & Time of Evaluation Date of Evaluation: 10/30/17 Time of Evaluation: 03:52 - Subjective Subjective: Nurse calls and tells me following facts about patient. He is not feeling well,feel weak, is constipated , no bm for 3 days, came to the desk and told him about these all. Temp 96.6*F rectal,oral did not register, BP 99/55, .fsbs 128 mg %. Patient was seen at bedside. States that he does not feel well for one month duration. Feels weak, had no bowel movement for 3 days , had received Miralax yesterday. Denies chest pain, nausea, sweating , palpitation. Medical record was reviewed. 67 year old male is admitted with sob , tightness in left side of chest , b/l lower extremity swelling, pna, pleural effusion, CHF,hyperglycemia. Has PMH of CHF, COPD, DM, atrial fibrillation, HTN,former smoker, DM II, coronary stent placement. Objective - Vital Signs/Intake and Output Vital Signs (last 24 hours): Temp Pulse Resp BP Pulse Ox 97.5 F L 95 H 22 113/81 95 10/29/17 14:00 10/29/17 14:00 10/29/17 14:00 10/29/17 17:37 10/29/17 14:00 Intake and Output: 10/29/17 10/30/17 18:59 06:59 Intake Total 640 Balance 640 - Medications Medications: Current Medications Alprazolam (Xanax) 0.25 mg PO BID PRN; Protocol PRN Reason: Anxiety Stop: 11/05/17 10:01 Last Admin: 10/30/17 00:20 Dose: 0.25 mg Budesonide (Pulmicort Respules) 0.5 mg IH BIDRESP [facility] Last Admin: 10/29/17 20:35 Dose: 0.5 mg Diltiazem HCl (Cardizem Cd) 180 mg PO DAILY [facility] Last Admin: 10/29/17 10:21 Dose: 180 mg Furosemide (Lasix) 40 mg IVP BID [facility] Last Admin: 10/29/17 17:37 Dose: 40 mg Gabapentin (Neurontin) 300 mg PO TID [facility] PRN Reason: Protocol Last Admin: 10/29/17 17:36 Dose: 300 mg Glipizide (Glucotrol) 10 mg PO 0730,1630 [facility] Last Admin: 10/29/17 17:36 Dose: 10 mg Insulin Detemir (Levemir) 10 unit SC QPM [facility] Last Admin: 10/29/17 17:36 Dose: 10 unit Insulin Human Regular (Humulin R Med) 0 units SC ACHS [facility] PRN Reason: Protocol Last Admin: 10/29/17 22:54 Dose: Not Given Levalbuterol HCl (Xopenex) 1.25 mg IH Q8H PRN PRN Reason: Shortness of Breath Lisinopril (Zestril) 5 mg PO DAILY [facility] Metformin HCl (Glucophage) 1,000 mg PO BID [facility] Last Admin: 10/29/17 17:37 Dose: 1,000 mg Pantoprazole Sodium (Protonix Inj) 40 mg IVP DAILY [facility] Last Admin: 10/29/17 10:26 Dose: 40 mg Tiotropium Donnellson (Spiriva) 18 mcg IH DAILY [facility] Last Admin: 10/29/17 14:39 Dose: 18 mcg Warfarin Sodium (Coumadin) 5 mg PO 1800 [facility] PRN Reason: Protocol Last Admin: 10/29/17 17:36 Dose: 5 mg - Labs Labs: PT 14.0 SECONDS (9.4-12.5) H 10/28/17 22:50 INR 1.22 (0.93-1.08) H 10/28/17 22:50 APTT 29.9 Seconds (25.1-36.5) 10/28/17 22:50 - Constitutional Appears: Well, No Acute Distress - Head Exam Head Exam: ATRAUMATIC, NORMAL INSPECTION, NORMOCEPHALIC - Eye Exam Eye Exam: Normal appearance - ENT Exam ENT Exam: Normal External Ear Exam - Neck Exam Neck Exam: Normal Inspection - Respiratory Exam Respiratory Exam: NORMAL BREATHING PATTERN - Cardiovascular Exam Cardiovascular Exam: +S1 (Normal.), +S2 (Normal.). absent: JVD - GI/Abdominal Exam GI & Abdominal Exam: Soft, Normal Bowel Sounds. absent: Distended, Firm, Guarding, Rigid, Tenderness, Mass, Organomegaly, Pulsatile Mass, Rebound - Rectal Exam Rectal Exam: Deferred - Exam Additional comments: Deferred. - Extremities Exam Extremities Exam: Normal Inspection - Back Exam Back Exam: NORMAL INSPECTION - Neurological Exam Neurological Exam: Alert, Awake, Oriented x3 - Psychiatric Exam Psychiatric exam: Normal Affect, Normal Mood - Skin Skin Exam: Normal Color Assessment and Plan - Assessment and Plan (Free Text) Assessment: Feeling of not well being. Low blood pressure. Constipation. Low temperature. PNA. CHF. CAD. COPD. Atrial fibrillation. Hx coronoary stent placement. Non insuin dependent DM. Overweight. Plan: Dulcolax 10 mg PO x 1. EKG stat.------>Atrial fibrillation, RBBB , Flipped T wave in V4 that is new, old inf. wall PA. AM labs CBC ,CMP to be done now(4:24AM) instead of when scheduled along with troponin level. Monitor temperature,blood pressure. Continue present management as per PMD.
[2017-10-30] MEDS: Levalbuterol 0.63 MG/3 ML Inhal Soln UD IH PRN ×2 (04:07→07:29)
[2017-10-30] MEDS ORDERED: Bisacodyl 5mg EC Tab PO ONE (04:16)
[2017-10-30 04:36] LABS: BASO # 0.03 K/mm3 (0.0-2.0); BASO % 0.3 % (0.0-3.0); EOS # 0.2 (0.0-0.7); EOS % 2.3 % (1.5-5.0); GRAN # 5.88 (1.4-6.5); GRAN % 59.9 % (50.0-68.0); HEMOGLOBIN 14.6 g/dL (14.0-18.0); LYMPH # 2.9 (1.2-3.4); LYMPH % 29.6 % (22.0-35.0); MEAN CELL VOLUME 94.3 fl (80.0-105.0); MEAN CORPUSCULAR HEMOGLOBIN 30.9 pg (25.0-35.0); MEAN CORPUSCULAR HGB CONC 32.8 g/dl (31.0-37.0); MEAN PLATELET VOLUME 12.3 fl (7.0-11.0); MONO # 0.8 (0.1-0.6); MONO % 7.9 % (1.0-6.0); RBC 4.72 10^6/uL (3.5-6.1); RED CELL DISTRIBUTION WIDTH 12.4 % (11.5-14.5); WHITE BLOOD COUNT 9.8 10^3/ul (4.5-11.0)
[2017-10-30 05:03] LABS: TROPONIN I 0.04 ng/mL
[2017-10-30 05:09] LABS: ALB/GLOB RATIO 1.2 (1.1-1.8); ALBUMIN 3.6 g/dL (3.0-4.8); ALT/SGPT 38 U/L (7-56); AST/SGOT 33 U/L (17-59); BLOOD UREA NITROGEN 29 mg/dL (7-21); CALCIUM 9.5 mg/dL (8.4-10.5); GFR AFRICAN-AMERICAN > 60; GFR NON-AFRICAN AMERICAN > 60
[2017-10-30] MEDS: Budesonide 0.5 mg/2 ml Inhal Susp UD IH SCH ×2 (07:29→20:04)
--- NOTE | 2017-10-30 08:35 | PN ---
SUBJECTIVE: The patient was seen and examined at bedside on the general medical becerra. No acute events overnight. He remains afebrile and hemodynamically stable. He reports significant improvement in his respiratory status since admission however states he is not yet at baseline. Otherwise he denies fevers, chills or rigors and overall offers no complaints. OBJECTIVE: VITAL SIGNS: Temperature 97.4, pulse 96, blood pressure 120/77, respiratory rate 20, oxygen saturation 97% on room air. GENERAL: No apparent distress. HEENT: PERRL, EOMI. No scleral icterus. No conjunctival pallor. NECK: Supple with full range of motion. No JVD. No bruits. LUNGS: Clear to auscultation. CARDIOVASCULAR: Decreased breath sounds at the right base, otherwise clear. ABDOMEN: Normoactive bowel sounds. Soft, nontender and nondistended. EXTREMITIES: No edema. NEUROLOGIC: Awake, alert and oriented x3. No focal motor deficits. LABORATORY DATA: CBC reviewed and unremarkable. CMP reviewed and unremarkable. ASSESSMENT: The patient is a 67 year old man with a past medical history of AFib and GERD who presented for evaluation of a 2 day history of exertional dyspnea and who was admitted for management of COPD and to optimize glycemic control. PLAN: 1. Right pleural effusion. CT imaging reviewed. Procalcitonin less than 0.05. Continue with IV diuretics. Input from Dr. Reddy and Dr. Irving greatly appreciated. Continue supplemental oxygen, bronchodilators and inhaled corticosteroids. Continue to encourage ambulation. 2. AFib, rate controlled. Continue Diltiazem CD 180 mg p.o. daily, Aspirin 81 mg p.o. daily and Warfarin 5 mg p.o. daily. Goal INR 2-3. 3. Hypertension. Blood pressure controlled. Continue Diltiazem CD 180 mg p.o. daily and Lisinopril 5 mg p.o. daily. 4. Type 2 diabetes mellitus. Continue Glipizide 10 mg p.o. b.i.d., Metformin 1000 mg p.o. b.i.d. and Levemir 10 units subcutaneous q.p.m. We will continue to monitor fingersticks before every meal and at bedtime and adjust insulin as needed. 5. GERD. Continue Protonix 40 mg p.o. daily. 6. Anxiety. Continue Xanax 0.25 mg p.o. b.i.d. as needed. 7. Prophylaxis. Continue Protonix for GI prophylaxis. DVT prophylaxis is not indicated as the patient is ambulatory. CODE STATUS: Full code. Pedro Araiza MD [facility]
--- NOTE | 2017-10-30 09:33 | CARD ---
APPROVED REPORT EKG Measurement Heart [id number] <Conclusion> Atrial fibrillation Left axis deviation/LAHB Right bundle branch block T wave abnormality, consider lateral ischemia No change
[2017-10-30] MEDS: Tiotropium 18 mcg Cap For Inhalation IH SCH (10:00)
[2017-10-30] MEDS: diltiaZEM 180 mg/24 Hours CD Cap PO SCH (10:01)
--- NOTE | 2017-10-30 10:58 | PN ---
DATE: 10/30/2017 PULMONARY NOTE SUBJECTIVE: The patient appears comfortable this morning. He is not short of breath at rest. PHYSICAL EXAMINATION VITAL SIGNS: Temperature is 97.4, pulse 96, respirations 18/20, blood pressure 102/77. Oxygen saturation on nasal cannula is 97%. HEENT: Normocephalic, atraumatic. No JVD. CARDIOVASCULAR: Systolic ejection murmur at the lower left sternal border. Positive S3 gallop. LUNGS: Minimal crackles at the bases. Minimal rhonchi. No wheezing. EXTREMITIES: Positive for edema. No cyanosis, no clubbing. Calves are nontender to palpation. GI: Abdomen is soft, nontender, nondistended. Bowel sounds are positive. SKIN: No acute rash. NEUROLOGIC: Limited at the present time. PERTINENT LABORATORY DATA: CAT scan of the chest was reviewed from 10/28/2017. There are bilateral interstitial changes noted consistent with pulmonary edema. There is also a small to moderate right pleural effusion. Next to the pleural effusion is airspace disease - most consistent with atelectasis (compressive). IMPRESSION: 1. Acute congestive heart failure. 2. Right pleural effusion. 3. Coronary artery disease. 4. Chronic obstructive pulmonary disease. 5. Mild bronchospasm. PLAN: The patient appears comfortable this morning. He is not short of breath at rest. He does state to feeling much better overall. On physical exam, there is no significant bronchospasm noted. In addition, there is no significant alveolar-arterial gradient. I will continue with the current nebulizer treatments, and add inhaled Brovana this morning. As above, I did review the CAT scan of the chest. The CAT scan is consistent with [id number] pulmonary edema, with a right pleural effusion. The air space disease adjacent to the pleural effusion - most likely represents compressive atelectasis. There are no temperatures noted by history. There is no leukocytosis. In addition, the procalcitonin done is negative. I would continue with the current treatment for congestive heart failure. The patient remains on Lasix/afterload reduction. Echocardiogram is also ordered. Clinical status of the patient is certainly improved - compared to the initial presentation. I will discuss the above with Dr. Araiza. Seth Reddy MD [facility] # [id number] [facility]
[2017-10-30] MEDS: Insulin Reg-MEDIUM-Coverage SC SCH ×4 (12:22→22:20)
[2017-10-30 13:26] LABS: INR 1.39 (0.93-1.08); PROTHROMBIN TIME 16.1 SECONDS (9.4-12.5)
[2017-10-30] MEDS: Insulin Detemir 100 units/ml Vial (Levemir) SC SCH (18:07)
[2017-10-30] MEDS: Arformoterol 15 mcg/2 ml Inh Sol IH SCH (20:04)
[2017-10-31] MEDS: Levalbuterol 0.63 MG/3 ML Inhal Soln UD IH PRN (02:12)
[2017-10-31 07:00] LABS: BASO # 0.02 K/mm3 (0.0-2.0); BASO % 0.3 % (0.0-3.0); EOS # 0.2 (0.0-0.7); EOS % 1.9 % (1.5-5.0); GRAN # 4.76 (1.4-6.5); GRAN % 59.7 % (50.0-68.0); HEMOGLOBIN 14.6 g/dL (14.0-18.0); LYMPH # 2.2 (1.2-3.4); LYMPH % 27.9 % (22.0-35.0); MEAN CELL VOLUME 94.4 fl (80.0-105.0); MEAN CORPUSCULAR HEMOGLOBIN 30.4 pg (25.0-35.0); MEAN CORPUSCULAR HGB CONC 32.2 g/dl (31.0-37.0); MEAN PLATELET VOLUME 12.6 fl (7.0-11.0); MONO # 0.8 (0.1-0.6); MONO % 10.2 % (1.0-6.0); RBC 4.8 10^6/uL (3.5-6.1); RED CELL DISTRIBUTION WIDTH 12.4 % (11.5-14.5)
[2017-10-31 07:34] LABS: ALB/GLOB RATIO 1.3 (1.1-1.8); ALBUMIN 3.6 g/dL (3.0-4.8); ALT/SGPT 36 U/L (7-56); AST/SGOT 26 U/L (17-59); BLOOD UREA NITROGEN 28 mg/dL (7-21); CALCIUM 9.3 mg/dL (8.4-10.5); GFR AFRICAN-AMERICAN > 60; GFR NON-AFRICAN AMERICAN > 60
[2017-10-31] MEDS: Arformoterol 15 mcg/2 ml Inh Sol IH SCH ×2 (07:42→20:38)
[2017-10-31] MEDS: Budesonide 0.5 mg/2 ml Inhal Susp UD IH SCH ×2 (07:42→20:38)
[2017-10-31] MEDS ORDERED: Magnesium Citrate Oral SOL (300 ml) PO ONE (08:01)
[2017-10-31] MEDS ORDERED: Insulin Detemir 100 units/ml Vial (Levemir) SC SCH (08:02)
[2017-10-31] MEDS: Insulin Reg-MEDIUM-Coverage SC SCH ×4 (08:23→21:35)
[2017-10-31] MEDS: Pantoprazole 40 mg EC Tab PO SCH (08:24)
--- NOTE | 2017-10-31 09:04 | PN ---
DATE: 10/31/2017 PULMONARY NOTE SUBJECTIVE: The patient appears comfortable at rest. He is not short of breath. PHYSICAL EXAMINATION: VITAL SIGNS: Last temperature recorded is 97.4, pulse is 88, respirations 18, blood pressure 105/78. Oxygen saturation on nasal cannula is 97%. HEENT: Normocephalic, atraumatic. No JVD. CARDIOVASCULAR: Systolic ejection murmur at the lower left sternal border. Positive S3 gallop. LUNGS: Minimal crackles at the bases. Less rhonchi. No wheezing. EXTREMITIES: Less edema. No cyanosis. No clubbing. Calves are nontender to palpation. GI: Abdomen is soft, nontender and nondistended. Bowel sounds are positive. SKIN: No acute rash. NEUROLOGIC: Limited at the present time. IMPRESSION: 1. Acute congestive heart failure. 2. Right pleural effusion. 3. Coronary artery disease. 4. Chronic obstructive pulmonary disease. 5. Mild bronchospasm. PLAN: The patient appears comfortable this morning. He is not short of breath at rest. He does state to some persistent dyspnea on exertion. However, he does state to feeling much better overall. On physical exam, there is certainly less bronchospasm noted. In addition, there is no significant alveolar-arterial gradient. I will continue with the current nebulizer treatments and inhaled steroids for now. I would continue with the treatment for congestive heart failure. The patient remains on intravenous Lasix. Repeat a.m. labs are pending. Clinical status of the patient is certainly improved - compared to his initial hospital status. I will discuss the above with Dr. Araiza. Seth Reddy MD [facility]
[2017-10-31] MEDS: Tiotropium 18 mcg Cap For Inhalation IH SCH (09:49)
[2017-10-31] MEDS: diltiaZEM 180 mg/24 Hours CD Cap PO SCH (09:50)
--- NOTE | 2017-10-31 11:05 | PN ---
SUBJECTIVE: The patient was seen and examined at the bedside on the general medical becerra. No acute events overnight. He remains afebrile and hemodynamically stable. This morning he reports continued improvement in his respiratory status but still endorses mild dyspnea with exertion. He is also complaining of some constipation as well as anxiety and states that his current dose of Xanax is insufficient. Otherwise he offers no complaints. PHYSICAL EXAMINATION VITAL SIGNS: Temperature 98, pulse 67, blood pressure 132/87, respiratory rate 20, oxygen saturation 96% on room air. GENERAL: No apparent distress. HEENT: PERRL. EOMI. No scleral icterus. No conjunctival pallor. NECK: Supple with full range of motion. No JVD. No bruits. LUNGS: Decreased breath sounds at the right base. CARDIOVASCULAR: Regular rate and rhythm. Normal S1 and S2. ABDOMEN: Normoactive bowel sounds. Soft, nontender, nondistended. EXTREMITIES: No edema. NEUROLOGIC: Awake, alert and oriented x3. No focal motor deficits. LABORATORY DATA: CBC reviewed and unremarkable. CMP reviewed and largely unremarkable. ASSESSMENT: The patient is a 67 year old man with a past medical history of AFib and GERD who presented for evaluation of a 2 day history of exertional dyspnea and who was admitted for management of COPD, questionable congestive heart failure and to optimize glycemic control. PLAN: 1. Right pleural effusion. Continue with IV diuretics. Input from Dr. Reddy noted and greatly appreciated. Continue supplemental oxygen, bronchodilators and inhaled corticosteroids as needed. Continue to encourage ambulation. 2. AFib, rate controlled. Continue Diltiazem CD 180 mg p.o. daily, Aspirin 81 mg p.o. daily. We will increase Warfarin to 7.5 mg p.o. daily. Monitor INR with goal INR of 2-3. 3. Hypertension. Blood pressure controlled. Continue Diltiazem CD 180 mg p.o. daily and Lisinopril 5 mg p.o. daily. 4. Type 2 diabetes mellitus. Fingersticks improved but slightly elevated. Continue Glipizide 10 mg p.o. b.i.d. and Metformin 1000 mg p.o. b.i.d. We will increase Levemir to 13 units SC every evening. Continue to monitor fingersticks before every meal and at bedtime. 5. GERD. Continue Protonix 40 mg p.o. daily. 6. Anxiety. We will increase Xanax to 0.5 mg p.o. b.i.d. as needed. 7. Prophylaxis. Continue Protonix for GI prophylaxis. DVT prophylaxis is not indicated as the patient is ambulatory. 8. Disposition. A TCU evaluation has been placed for continued physical therapy and IV Lasix. CODE STATUS: Full code. Pedro Araiza MD [facility]
--- NOTE | 2017-10-31 14:01 | PQF CHF ---
Dr. Araiza, This form is a permanent part of the medical record Patient admitted with 2 day hx REYES, CXR with vascular congestion, CT chest with right pleural effusion, BNP 3240, treated with IV Lasix. Your progress notes of 10/31 noted "admitted for management of COPD and questionable CHF". Please clarify if CHF was POA along with COPD, type and severity if present. Clarification of your documentation is requested to better reflect the severity of illness and intensity of treatment of your patient. Indicators present [x] Diagnosis of CHF and/or history of CHF [x] BNP > 200 [x] Imaging Finding of Pulmonary Edema /Pleural Effusions [] Fluid/Volume Overload [] Pitting edema [] Ejection Fraction < 40% (Indicative of Systolic Heart Failure) [] Ejection Fraction > 40% (Indicative of Diastolic Heart Failure) [x] Dyspnea / Orthopenea / Paroxysmal Nocturnal Dyspnea [] Other: lasix Location in the medical record that reflects the above clinical findings: [] Treatment Provided: [] PHYSICIAN'S RESPONSE Based on your medical judgment of the clinical indicators outlined above, are you treating this patient for a known or suspected: [] Acute CHF [] Systolic [] Diastolic [] Combined [] Chronic CHF [] Systolic [] Diastolic [] Combined [x] Acute on Chronic CHF [x]Systolic [] Diastolic [] Combined [] CHF due hypertension [] Acute systolic []Chronic systolic [] Acute/ chronic systolic [] Other, please indicate: [] [] If Unable to Determine, please check the box, sign and date. Present On Admission (POA) Indicator: [x] Present at the time of admission [] Not present at the time of admission [] Clinically Undetermined In responding to this query, please exercise your independent professional judgment. The fact that a question is asked does not imply that any particular answer is desired or expected. Thank you for your clarification on this documentation. If you have any questions please call:[ ] * Thank you, [ ]Roberto Thomas [facility] #[id number] retinal surgeon [facility]
[2017-11-01] MEDS ORDERED: DiphenhydrAMINE 50 mg/ml Inj IVP STA (04:32)
[2017-11-01 07:18] LABS: BASO # 0.02 K/mm3 (0.0-2.0); BASO % 0.2 % (0.0-3.0); EOS # 0.2 (0.0-0.7); EOS % 1.3 % (1.5-5.0); GRAN # 8.63 (1.4-6.5); LYMPH # 1.9 (1.2-3.4); LYMPH % 16.3 % (22.0-35.0); MEAN CELL VOLUME 94.9 fl (80.0-105.0); MEAN CORPUSCULAR HEMOGLOBIN 30.8 pg (25.0-35.0); MEAN CORPUSCULAR HGB CONC 32.5 g/dl (31.0-37.0); MEAN PLATELET VOLUME 12.7 fl (7.0-11.0); MONO # 0.8 (0.1-0.6); MONO % 7.2 % (1.0-6.0); RBC 4.87 10^6/uL (3.5-6.1); RED CELL DISTRIBUTION WIDTH 12.5 % (11.5-14.5); WHITE BLOOD COUNT 11.5 10^3/ul (4.5-11.0)
--- NOTE | 2017-11-01 07:28 | CARD ---
APPROVED REPORT EXAM: Two-dimensional and M-mode echocardiogram with Doppler and color Doppler. INDICATION R/O PAH, RVSP, RIGHT AND LEFT SIDE 2D DIMENSIONS RVDd3.9 (2.9-3.5cm)Left Atrium (2D)5.8 (1.6-4.0cm) IVSd1.1 (0.7-1.1cm)LVDd5.3 (3.9-5.9cm) PWd1.3 (0.7-1.1cm)LVDs4.1 (2.5-4.0cm) FS (%) 22.2 %LVEF (%)44.6 (>50%) M-Mode DIMENSIONS Aortic Root3.30 (2.2-3.7cm)Aortic Cusp Exc.1.50 (1.5-2.0cm) Aortic Valve AoV Peak Pfeezpnf049.0cm/Pamela Peak GR.14mmHgLVOT Peak Krekkifr49.9cm/s LVOT VTI10.20cmAI P 1/2 [id number] Mitral Valve E/A ratio0.0 TDI E/Lateral E'0.0E/Medial E'0.0 Pulmonary Valve PV Peak Yhdvujmb14.2cm/sPV Peak Grad.1mmHg Tricuspid Valve TR Peak [id number]/sRAP [id number] Peak Gr.75mmHg [id number] LEFT VENTRICLE The left ventricle is normal size. There is mild concentric left ventricular hypertrophy. The systolic function is mildly impaired. There is a flattened septum consistent with right ventricle pressure overload. RIGHT VENTRICLE The right ventricle is mildly dilated. The right ventricular systolic function is normal. ATRIA The left atrium is severely dilated. The right atrium is moderately dilated. AORTIC VALVE The aortic valve is mildly sclerotic. There is trace to mild aortic regurgitation. There is no aortic valvular stenosis. MITRAL VALVE The mitral valve leaflets are thickened. Mitral regurgitation is moderate to severe. The mitral regurgitant jet is eccentrically directed. TRICUSPID VALVE The tricuspid valve is normal in structure. There is moderate to severe tricuspid regurgitation. There is severe pulmonary hypertension. PULMONIC VALVE The pulmonic valve is not well visualized. GREAT VESSELS The aortic root is normal in size. The IVC is normal in size and collapses >50% with inspiration. PERICARDIAL EFFUSION There is no pleural effusion. There is no pericardial effusion. <Conclusion> Biatrial enlargement. Normal LV size. Mild concentric LVH. Mildly reduced LV systolic function with septal flattenng and dyskinesis consistent with RV pressure overload. Moderate to severe MR and TR. Mild AI. Severe pulmonary HTN with estimated RVSP of 85 mm Hg.
[2017-11-01] MEDS: Budesonide 0.5 mg/2 ml Inhal Susp UD IH SCH ×2 (07:36→19:59)
[2017-11-01] MEDS: Arformoterol 15 mcg/2 ml Inh Sol IH SCH ×2 (07:36→19:59)
[2017-11-01 07:41] LABS: INR 1.22 (0.93-1.08); PROTHROMBIN TIME 14.1 SECONDS (9.4-12.5)
[2017-11-01] MEDS ORDERED: Insulin Detemir 100 units/ml Vial (Levemir) SC SCH (08:34)
[2017-11-01] MEDS: Pantoprazole 40 mg EC Tab PO SCH (08:36)
[2017-11-01] MEDS: Insulin Reg-MEDIUM-Coverage SC SCH ×4 (08:36→22:02)
[2017-11-01 08:47] LABS: ALB/GLOB RATIO 1.2 (1.1-1.8); ALBUMIN 3.6 g/dL (3.0-4.8); ALT/SGPT 36 U/L (7-56); AST/SGOT 21 U/L (17-59); BLOOD UREA NITROGEN 32 mg/dL (7-21); CALCIUM 9.6 mg/dL (8.4-10.5); GFR AFRICAN-AMERICAN > 60; GFR NON-AFRICAN AMERICAN 55
[2017-11-01] MEDS: Tiotropium 18 mcg Cap For Inhalation IH SCH (09:20)
[2017-11-01] MEDS: diltiaZEM 180 mg/24 Hours CD Cap PO SCH (09:21)
--- NOTE | 2017-11-01 09:41 | PN ---
DATE: 11/01/2017 PULMONARY NOTE SUBJECTIVE: The patient appears comfortable this morning. He is not short of breath at rest. PHYSICAL EXAMINATION: VITAL SIGNS: (Last noted in the computer): Temperature is 97.4, pulse 90, respirations 18/20, blood pressure 126/70. Oxygen saturation on nasal cannula is 99%. HEENT: Normocephalic, atraumatic. No JVD. CARDIOVASCULAR: Systolic ejection murmur at the lower left sternal border. Positive S3 gallop. LUNGS: Less crackles at the bases. Less rhonchi. No wheezing. EXTREMITIES: Less edema. No cyanosis. No clubbing. Calves are nontender to palpation. GI: Abdomen is soft, nontender and nondistended. Bowel sounds are positive. SKIN: No acute rash. NEUROLOGIC: Limited at the present time. IMPRESSION: 1. Acute congestive heart failure. 2. Right pleural effusion. 3. Coronary artery disease. 4. Chronic obstructive pulmonary disease. 5. Mild bronchospasm. PLAN: The patient appears comfortable this morning. He is not short of breath at rest. He does state to less shortness of breath with exertion. He does state to feeling much better overall. On physical exam, there is less bronchospasm noted. In addition, the alveolar-arterial gradient is also less. I will continue with the current nebulizer treatments and inhaled steroids for now. The patient remains on treatment for his congestive heart failure. He remains on intravenous Lasix. The clinical status of this patient is certainly improved - compared to the initial presentation. Echocardiogram was done, but not read as of yet. I will follow the echocardiogram closely. I did discuss case with Dr. Araiza yesterday. I will also discuss the case with him this morning. Seth Reddy MD [facility]
--- NOTE | 2017-11-01 13:08 | PN ---
SUBJECTIVE: The patient was seen and examined at bedside on the general medical becerra. No acute events overnight. The patient reports that he still becomes dyspneic with exertion and also complains of lower extremity pain with ambulation. PHYSICAL EXAMINATION VITAL SIGNS: Temperature 97.4, pulse 80, blood pressure 123/76, respiratory rate 20, oxygen saturation 99% on 3 liters nasal cannula. GENERAL: No apparent distress. HEENT: PERRL. EOMI. No scleral icterus. No conjunctival pallor. NECK: Supple with full range of motion. No JVD. No bruits. LUNGS: Decreased breath sounds at the bases. CARDIOVASCULAR: Regular rate and rhythm. Normal S1 and S2. ABDOMEN: Normoactive bowel sounds. Soft, nontender and nondistended. EXTREMITIES: Trace edema. NEUROLOGIC: Awake, alert and oriented x3. No focal motor deficits. LABORATORY DATA: WBC 11.5, hemoglobin 15, hematocrit 46, platelets 212. Chemistry pending. ASSESSMENT: The patient is a 67 year old man with a past medical history of AFib, GERD and CHF who presented for evaluation of a 2 day history of exertional dyspnea and who was admitted for management of COPD, acute on chronic systolic CHF exacerbation and to optimize glycemic control. PLAN: 1. Acute on chronic systolic heart failure exacerbation. Continue with Lasix 40 mg IV b.i.d. Continue with supplemental oxygen and bronchodilators as needed. 2. COPD. Input from Dr. Rdedy noted and greatly appreciated. Continue with supplemental oxygen and bronchodilators as needed. Continue to encourage ambulation. 3. Pulmonary hypertension. TTE reviewed and demonstrates severe pulmonary hypertension with an RVSP of 85 mmHg. We will discuss with Dr. Reddy the initiation of therapeutic agents for pulmonary hypertension. 4. AFib, rate controlled. Continue diltiazem CD 180 mg p.o. daily, Aspirin 81 mg p.o. daily and Warfarin 7.5 mg p.o. daily. Continue to monitor INR with goal INR of 2-3. 5. Hypertension. Blood pressure controlled. Continue Diltiazem CD 180 mg p.o. daily and Lisinopril 40 mg p.o. daily. 6. Type 2 diabetes mellitus. Continue Glipizide 10 mg p.o. b.i.d., Metformin 1000 mg p.o. b.i.d. and Levemir 15 units SC every evening. Continue to monitor fingersticks before every meal and at bedtime. 7. GERD. Continue Protonix 40 mg p.o. daily. 8. Anxiety. Continue Xanax 0.5 mg p.o. b.i.d. 9. Prophylaxis. Continue Protonix for GI prophylaxis. The patient remains on warfarin thus DVT prophylaxis is not indicated. 10. Disposition. We will speak with the social workers/shelter case manager regarding possible TCU admission given that the patient is still quite symptomatic with exertion and complains of bilateral lower extremity pain with ambulation. CODE STATUS: Full code. Pedro Araiza MD MTDD
[2017-11-02 07:04] LABS: BASO # 0.01 K/mm3 (0.0-2.0); BASO % 0.1 % (0.0-3.0); EOS # 0.1 (0.0-0.7); EOS % 0.5 % (1.5-5.0); GRAN # 11.02 (1.4-6.5); GRAN % 80.8 % (50.0-68.0); HEMOGLOBIN 14.8 g/dL (14.0-18.0); LYMPH # 1.7 (1.2-3.4); LYMPH % 12.5 % (22.0-35.0); MEAN CELL VOLUME 95.3 fl (80.0-105.0); MEAN CORPUSCULAR HEMOGLOBIN 30.4 pg (25.0-35.0); MEAN CORPUSCULAR HGB CONC 31.9 g/dl (31.0-37.0); MEAN PLATELET VOLUME 12.5 fl (7.0-11.0); MONO # 0.8 (0.1-0.6); MONO % 6.1 % (1.0-6.0); RBC 4.87 10^6/uL (3.5-6.1); RED CELL DISTRIBUTION WIDTH 12.4 % (11.5-14.5); WHITE BLOOD COUNT 13.6 10^3/ul (4.5-11.0)
[2017-11-02 07:17] LABS: INR 1.44 (0.93-1.08); PROTHROMBIN TIME 16.7 SECONDS (9.4-12.5)
[2017-11-02 07:21] LABS: ALB/GLOB RATIO 1.3 (1.1-1.8); ALBUMIN 3.7 g/dL (3.0-4.8); ALT/SGPT 26 U/L (7-56); AST/SGOT 20 U/L (17-59); BLOOD UREA NITROGEN 25 mg/dL (7-21); CALCIUM 9.6 mg/dL (8.4-10.5); GFR AFRICAN-AMERICAN > 60; GFR NON-AFRICAN AMERICAN > 60
[2017-11-02] MEDS: Budesonide 0.5 mg/2 ml Inhal Susp UD IH SCH ×2 (07:28→20:59)
[2017-11-02] MEDS: Arformoterol 15 mcg/2 ml Inh Sol IH SCH ×2 (07:28→20:59)
--- NOTE | 2017-11-02 08:12 | PN ---
DATE: 11/02/2017 PULMONARY NOTE SUBJECTIVE: The patient appears comfortable this morning. He is not short of breath at rest. PHYSICAL EXAMINATION: VITAL SIGNS: Last temperature recorded is 98.1, pulse this morning is approximately 80, respiratory rate 18, blood pressure 105/69. Oxygen saturation on nasal cannula is 97-98%. HEENT: Normocephalic, atraumatic. No JVD. CARDIOVASCULAR: Systolic ejection murmur at the lower left sternal border. Positive S3 gallop. LUNGS: Less crackles at the bases. No rhonchi or wheezing this morning. EXTREMITIES: Less edema. No cyanosis. No clubbing. Calves are nontender to palpation. GI: Abdomen is soft, nontender and nondistended. Bowel sounds are positive. SKIN: No acute rash. NEUROLOGIC: Limited at the present time. PERTINENT LABORATORY DATA: Echocardiogram was repeated on 10/31/2017 and reviewed. There is severe pulmonary hypertension noted with an estimated right ventricular systolic pressure of 85 mmHg. There is moderate to severe mitral regurgitation and tricuspid regurgitation. There is also a mildly reduced left ventricular systolic function. IMPRESSION: 1. Acute congestive heart failure. 2. Right pleural effusion. 3. Coronary artery disease. 4. Chronic obstructive pulmonary disease. 5. Pulmonary hypertension. PLAN: The patient appears comfortable this morning. He is not short of breath at rest. He does state to feeling much better overall. On physical exam, there is no significant bronchospasm noted. In addition, the oxygen saturation on nasal cannula is 97-98%. I will continue with the current nebulizer treatments and inhaled steroids for now. The most recent echocardiogram is noted above. I did discuss the case with Dr. Johnson (Cardiology) at length yesterday. The patient will need a right heart cardiac catheterization - for us to obtain the adequate medications from the insurance companies. I also discussed this issue with the patient at length this morning. The clinical status of this patient is significantly improved - compared to the initial presentation. The patient is for discharge in the near future. We will obtain a room air oxygen saturation at rest and on ambulation prior to any discharge. Again, the patient is very well aware that he will need to see us in the office. I will discuss the above with Dr. Araiza this morning. Seth Reddy MD [facility] # [id number] ROSMERY
[2017-11-02] MEDS: Insulin Reg-MEDIUM-Coverage SC SCH ×4 (08:29→22:40)
[2017-11-02] MEDS: Pantoprazole 40 mg EC Tab PO SCH (08:29)
--- NOTE | 2017-11-02 08:35 | PN ---
SUBJECTIVE: The patient was seen and examined at bedside on the general medical becerra. No acute events overnight. He remains afebrile and hemodynamically stable. He states he has had mild improvement in his respiratory symptoms, but still reports dyspnea with exertion. He has been reevaluated by Physical Therapy and recommendations have been made for TCU. The patient has also been evaluated by Dr. Johnson for right heart catheterization to further assess his pulmonary hypertension. PHYSICAL EXAMINATION VITAL SIGNS: Temperature 97.8, pulse 86, blood pressure 104/64, respiratory rate 20, oxygen saturation 98% on 2 liters nasal cannula. GENERAL: No apparent distress. HEENT: PERRL. EOMI. No scleral icterus. No conjunctival pallor. NECK: Supple with full range of motion. No JVD. No bruits. LUNGS: Decreased breath sounds at the bases. CARDIOVASCULAR: Regular rate and rhythm. Normal S1 and S2. ABDOMEN: Normoactive bowel sounds. Soft, nontender and nondistended. EXTREMITIES: Trace lower extremity edema. NEUROLOGIC: Awake, alert and oriented x3. No focal motor deficits. LABORATORY DATA: WBC 13.6, hemoglobin 15, hematocrit 46, platelets 204. Chemistry reviewed and unremarkable. ASSESSMENT: The patient is a 67 year old man with a past medical history of AFib, GERD and CHF who presented for evaluation of a 2 day history of exertional dyspnea and who was admitted for management of COPD, acute on chronic systolic heart failure exacerbation and to optimize glycemic control. PLAN: 1. Acute on chronic systolic heart failure exacerbation. Continue Lasix 40 mg IV b.i.d. Continue supplemental oxygen and bronchodilators as needed. Monitor strict in's and out's. 2. COPD. Input from Dr. Reddy noted and appreciated. Continue supplemental oxygen and bronchodilators as needed. Continue with incentive spirometry. Continue to encourage ambulation. 3. Pulmonary hypertension. TTE reviewed and demonstrates severe pulmonary hypertension with an RVSP of [address] Johnson pending for possible right heart catheterization. 4. AFib, rate controlled. Continue diltiazem CD 180 mg p.o. daily, aspirin 81 mg p.o. daily and warfarin 7.5 mg p.o. daily. Continue to monitor INR with goal INR of 2-3. 5. Hypertension. Blood pressure controlled. Continue diltiazem CD 180 mg p.o. daily and lisinopril 5 mg p.o. daily. 6. Type 2 diabetes mellitus. Continue glipizide 10 mg p.o. b.i.d., metformin 1000 mg p.o. b.i.d. and Levemir 15 units SC every evening. Continue to monitor fingersticks before every meal and at bedtime. 7. GERD. Continue Protonix 40 mg p.o. daily. 8. Anxiety. Continue Xanax 0.5 mg p.o. b.i.d. 9. Prophylaxis. Continue Protonix for GI prophylaxis. The patient remains on warfarin, thus DVT prophylaxis is not indicated. CODE STATUS: Full code. Pedro Araiza MD [facility]
[2017-11-02] MEDS: diltiaZEM 180 mg/24 Hours CD Cap PO SCH (09:44)
[2017-11-02] MEDS: Tiotropium 18 mcg Cap For Inhalation IH SCH (09:44)
[2017-11-02] MEDS: Insulin Detemir 100 units/ml Vial (Levemir) SC SCH (17:26)
[2017-11-03] MEDS: Insulin Reg-MEDIUM-Coverage SC SCH ×4 (06:50→22:00)
[2017-11-03] MEDS ORDERED: Lidocaine 2% Inj (20ml) ONE (07:10)
[2017-11-03] MEDS ORDERED: Iodixanol 320 mg/ml 150 ml Bottle IV ONE (07:11)
[2017-11-03] MEDS ORDERED: Midazolam 2 MG/2 ML VIAL ONE (07:11)
[2017-11-03 07:12] LABS: BASO # 0.02 K/mm3 (0.0-2.0); BASO % 0.2 % (0.0-3.0); EOS # 0.2 (0.0-0.7); EOS % 2.3 % (1.5-5.0); GRAN # 5.66 (1.4-6.5); GRAN % 59.9 % (50.0-68.0); HEMOGLOBIN 13.5 g/dL (14.0-18.0); LYMPH # 2.6 (1.2-3.4); LYMPH % 27.5 % (22.0-35.0); MEAN CELL VOLUME 95.7 fl (80.0-105.0); MEAN CORPUSCULAR HEMOGLOBIN 30.5 pg (25.0-35.0); MEAN CORPUSCULAR HGB CONC 31.8 g/dl (31.0-37.0); MEAN PLATELET VOLUME 12.6 fl (7.0-11.0); MONO % 10.1 % (1.0-6.0); RBC 4.43 10^6/uL (3.5-6.1); RED CELL DISTRIBUTION WIDTH 12.4 % (11.5-14.5); WHITE BLOOD COUNT 9.5 10^3/ul (4.5-11.0)
[2017-11-03 07:21] LABS: PROTHROMBIN TIME 16.9 SECONDS (9.4-12.5)
[2017-11-03 07:22] LABS: INR 1.46 (0.93-1.08)
[2017-11-03 07:30] LABS: ALB/GLOB RATIO 1.2 (1.1-1.8); ALBUMIN 3.5 g/dL (3.0-4.8); ALT/SGPT 30 U/L (7-56); AST/SGOT 20 U/L (17-59); BLOOD UREA NITROGEN 30 mg/dL (7-21); CALCIUM 9.3 mg/dL (8.4-10.5); GFR AFRICAN-AMERICAN > 60; GFR NON-AFRICAN AMERICAN > 60
[2017-11-03] MEDS: Budesonide 0.5 mg/2 ml Inhal Susp UD IH SCH ×2 (07:35→19:53)
[2017-11-03] MEDS: Arformoterol 15 mcg/2 ml Inh Sol IH SCH ×2 (07:35→19:53)
--- NOTE | 2017-11-03 09:07 | PN ---
DATE: 11/03/2017 PULMONARY NOTE SUBJECTIVE: The patient appears comfortable this morning. He is not short of breath at rest. PHYSICAL EXAMINATION VITAL SIGNS: Last temperature recorded is 97.8, pulse this morning is 80, respiratory rate 18, last blood pressure recorded is 102/65. Oxygen saturation on nasal cannula is 96%. HEENT: Normocephalic, atraumatic. No JVD. CARDIOVASCULAR: Systolic ejection murmur at the lower left sternal border. Positive S3 gallop. LUNGS: Minimal crackles at the bases. Few rhonchi. No wheezing. EXTREMITIES: Less edema. No cyanosis, no clubbing. Calves are nontender to palpation. GASTROINTESTINAL: Abdomen is soft, nontender, nondistended. Bowel sounds are positive. SKIN: No acute rash. NEUROLOGIC: Limited at the present time. IMPRESSION: 1. Acute congestive heart failure. 2. Right pleural effusion. 3. Coronary artery disease. 4. Chronic obstructive pulmonary disease. 5. Pulmonary hypertension. PLAN: The patient appears comfortable this morning. He is not short of breath at rest. He does state to feeling much better overall. On physical exam, there is certainly less bronchospasm noted. In addition, there is less alveolar-arterial gradient. I will continue with the current nebulizer treatments and inhaled steroids for now. I did discuss the case with Dr. Araiza and Dr. Kim yesterday. The patient is for right heart catheterization later this morning. Again, the right heart catheterization is essential for the patient to get the medications from the insurance companies. I also discussed the above with the - at bedside - at length. I will also discuss the above with Dr. Araiza this morning. Seth Reddy MD ROSMERY
[2017-11-03] MEDS ORDERED: metOLazone 5 MG TAB PO ONE (09:30)
[2017-11-03] MEDS: diltiaZEM 180 mg/24 Hours CD Cap PO SCH (10:34)
[2017-11-03] MEDS: Pantoprazole 40 mg EC Tab PO SCH (10:35)
--- NOTE | 2017-11-03 10:35 | PN ---
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 He underwent a right heart catheterization a short time ago. He remains dyspneic and with a cough and significant orthopnea. He continued to be short of breath with minimal exertion. Right heart catheterization performed earlier today revealed evidence of PA pressure of 56/24 with a wedge pressure of 32. CURRENT MEDICATIONS: Remain Brovana, Cardizem 180 mg daily, Coumadin which has been on hold, Glucophage 1000 mg b.i.d., Glucotrol 10 mg b.i.d., insulin coverage, Lasix 40 mg IV b.i.d., Levemir insulin, Neurontin, Protonix, Pulmicort inhaler, Spiriva, Xanax, Xopenex and Zestril. OBJECTIVE: GENERAL: He is a middle-aged man, who appears mildly tachypneic. VITAL SIGNS: His blood pressure is 122/82 with a pulse of 86, respirations are 22. He is afebrile. HEENT: No JVD. CHEST: Bibasilar rales. HEART: PMI displaced laterally with systolic murmur at the apex. ABDOMEN: Soft, nontender. Normoactive bowel sounds. EXTREMITIES: No edema. DIAGNOSTIC DATA: Potassium is 4.2, BUN and creatinine are 30 and 1.2, hemoglobin and hematocrit 13.5 and 43.4 with a white count of 9.5, platelet count of 180,000. INR is 1.46. IMPRESSION: 1. Decompensated congestive heart failure, [id number], predominantly diastolic secondary to moderately severe mitral regurgitation. 2. Moderately elevated right heart pressure secondary to left heart failure. 3. Chronic atrial fibrillation. 4. Rest of problems as noted. RECOMMENDATIONS: At this time, intensified diuretic therapy should be planned. YOVANY inhibitor will be held throughout the diuretic phase. Evaluation for mitral valve repair should be planned. We will continue to follow and will make further recommendations as appropriate. Gurinder Johnson MD
[2017-11-03] MEDS: Tiotropium 18 mcg Cap For Inhalation IH SCH (10:36)
--- NOTE | 2017-11-03 13:37 | CARDCATH ---
PROCEDURE DATE: 11/03/2017 PROCEDURE: Right heart catheterization. INDICATION: Mitral valve disease, possible pulmonary hypertension. FINDINGS: Right heart catheterization was performed via the right femoral vein with the use of a 7-[place] Islander sheath and a Cumming-Geovanni catheter. The right heart pressures were as follows. The RA mean pressure was 16, the RV pressure was 54/12. The PA pressure was 54/22 with a pulmonary capillary wedge pressure of 32. The cardiac output by thermodilution method was 3.8 liters per minute with a cardiac index of 1.9 liters per minute by meter square. The patient tolerated the procedure well. Venous sheath was removed and manual pressure applied and adequate hemostasis achieved. CONCLUSION: Moderately elevated right heart pressures with elevated pulmonary capillary wedge pressure consistent with severe mitral valve disease. RECOMMENDATIONS: The patient should be considered for mitral valve repair surgery. Gurinder Johnson MD cc: MD Seth Sosa MD
--- NOTE | 2017-11-03 14:42 | PN ---
DATE: 11/03/2017 LOCATION: The patient is currently in room 266, bed 2. SUBJECTIVE: He had just come off from a cardiac catheterization with Dr. Johnson. I have no results of this yet. PHYSICAL EXAMINATION VITAL SIGNS: Temperature of 98.2, pulse rate of 83, blood pressure 123/83, respiratory rate of 18, O2 saturation of 95% on room air. HEENT: PERRLA. EOMI. NECK: Supple. No jugular venous distention. No bruits are present. HEART: Shows a regular rate and rhythm. ABDOMEN: Benign, soft, nontender, no organomegaly with normoactive bowel sounds. EXTREMITIES: Show no deformities or edema. LABORATORY DATA: Lab values are WBC of 9.5, hemoglobin and hematocrit of 13.5, and 42.4 with chemistry being normal with the exception of BUN of 30 and a random glucose of 165. ASSESSMENT AND PLAN: Awaiting results of the echocardiogram. The patient does have pulmonary hypertension, we will discuss further management with Dr. Seth Reddy. Sameer Araiza MD
[2017-11-03] MEDS: Potassium Chloride 20 mEq ER Tab PO SCH (18:25)
[2017-11-03] MEDS: Insulin Detemir 100 units/ml Vial (Levemir) SC SCH (18:29)
[2017-11-04] MEDS: Levalbuterol 0.63 MG/3 ML Inhal Soln UD IH PRN (02:52)
[2017-11-04 05:41] VITALS: TEMP 98.2
[2017-11-04] MEDS: Arformoterol 15 mcg/2 ml Inh Sol IH SCH (07:35)
[2017-11-04] MEDS: Budesonide 0.5 mg/2 ml Inhal Susp UD IH SCH (07:35)
--- NOTE | 2017-11-04 08:13 | CP.PCM.PN ---
Subjective - Date & Time of Evaluation Date of Evaluation: 11/04/17 Time of Evaluation: 07:00 - Subjective Subjective: Stable on 5R. S/P RHC > elevated RH pressures and PCP ~ 30. He feels better this AM.No CP or SOB V/S noted. PE: Lungs: rhonchi Cor.: irreg., S1S2, sys. murmur Abd.: soft Ext: no edema Neuro.: alert RHC report noted. Labs pending. Objective - Vital Signs/Intake and Output Vital Signs (last 24 hours): Temp Pulse Resp BP Pulse Ox 98.2 F 86 18 107/69 97 11/03/17 22:00 11/03/17 22:00 11/03/17 22:00 11/03/17 22:00 11/03/17 22:00 Intake and Output: 11/04/17 11/04/17 06:59 18:59 Intake Total 1020 Balance 1020 - Medications Medications: Current Medications Alprazolam (Xanax) 0.5 mg PO BID PRN; Protocol PRN Reason: Anxiety Stop: 11/05/17 10:01 Last Admin: 11/03/17 23:47 Dose: 0.5 mg Arformoterol Tartrate (Brovana) 15 mcg IH [id number] [facility] Last Admin: 11/04/17 07:35 Dose: 15 mcg Benzonatate (Tessalon Perles) 200 mg PO TID PRN PRN Reason: Cough Last Admin: 11/03/17 19:46 Dose: 200 mg Budesonide (Pulmicort Respules) 0.5 mg IH BIDRESP [facility] Last Admin: 11/04/17 07:35 Dose: 0.5 mg Diltiazem HCl (Cardizem Cd) 180 mg PO DAILY [facility] Last Admin: 11/03/17 10:34 Dose: 180 mg Furosemide (Lasix) 40 mg IVP BID LEONARDO Gabapentin (Neurontin) 300 mg PO TID LEONARDO PRN Reason: Protocol Last Admin: 11/03/17 18:27 Dose: 300 mg Glipizide (Glucotrol) 10 mg PO 0730,1630 [facility] Last Admin: 11/03/17 18:34 Dose: 10 mg Insulin Detemir (Levemir) 18 unit SC QPM [facility] Last Admin: 11/03/17 18:29 Dose: 18 unit Insulin Human Regular (Humulin R Med) 0 units SC ACHS LEONARDO PRN Reason: Protocol Last Admin: 11/03/17 22:00 Dose: Not Given Levalbuterol HCl (Xopenex) 1.25 mg IH Q8H PRN PRN Reason: Shortness of Breath Last Admin: 11/04/17 02:52 Dose: 1.25 mg Lisinopril (Zestril) 5 mg PO DAILY [facility] Last Admin: 11/02/17 09:53 Dose: Not Given Metformin HCl (Glucophage) 1,000 mg PO BID [facility] Last Admin: 11/03/17 18:30 Dose: 1,000 mg Pantoprazole Sodium (Protonix Ec Tab) 40 mg PO ACB [facility] Last Admin: 11/03/17 10:35 Dose: 40 mg Potassium Chloride (K-Dur 20 Meq Er Tab) 20 meq PO BRKDIN [facility] Last Admin: 11/03/17 18:25 Dose: 20 meq Tiotropium [place] (Spiriva) 18 mcg IH DAILY [facility] Last Admin: 11/03/17 10:36 Dose: 18 mcg Warfarin Sodium (Coumadin) 7.5 mg PO 1800 [facility] Last Admin: 11/03/17 18:33 Dose: Not Given - Labs Labs: 11/03/17 07:00 11/03/17 07:00 PT 16.9 SECONDS (9.4-12.5) H 11/03/17 07:00 INR 1.46 (0.93-1.08) H 11/03/17 07:00 APTT 29.9 Seconds (25.1-36.5) 10/28/17 22:50 Assessment and Plan - Assessment and Plan (Free Text) Assessment: Dyspnea/Cough CHF Mod/Sev MR on echo with severe PH, mod sev TR and mild LVD CAD AF COPD/Smoker Pleural Effusion HBP HLD Diabetes Plan: IV Lasix MV repair or replacement to be arranged soon> next week Hold warfarin. Bridge with Lovenox pending MV procedure. Monitor labs, I/O, INR's Will follow
[2017-11-04] MEDS: Pantoprazole 40 mg EC Tab PO SCH (08:35)
[2017-11-04] MEDS: Potassium Chloride 20 mEq ER Tab PO SCH ×2 (08:35→17:50)
[2017-11-04] MEDS ORDERED: Enoxaparin 80 mg Syringe SC SCH (08:45)
[2017-11-04 08:50] LABS: INR 1.19 (0.93-1.08); PROTHROMBIN TIME 13.7 SECONDS (9.4-12.5)
--- NOTE | 2017-11-04 09:47 | PN ---
SUBJECTIVE: The patient was seen and examined at bedside on the general medical becerra. No acute events overnight. He remains afebrile and hemodynamically stable and is doing well s/p his right heart catheterization. Findings of the catheterization demonstrated elevated pulmonary artery pressures with an elevated pulmonary capillary wedge pressure consistent with severe mitral valve disease. Arrangements are being made for surgical evaluation for repair or replacement of his mitral valve. OBJECTIVE VITAL SIGNS: Temperature 98.2, pulse 86, blood pressure 107/69, respiratory rate 20, oxygen saturation 98% on 2 liters nasal cannula. GENERAL: No apparent distress. HEENT: PERRL. EOMI. No scleral icterus. No conjunctival pallor. NECK: Supple. Full range of motion. No JVD. No bruits. LUNGS: Decreased breath sounds at the bases. CARDIOVASCULAR: Regular rate and rhythm. Normal S1 and S2. Grade 2/6 murmur to left lower sternal border. ABDOMEN: Normoactive bowel sounds. Soft, nontender and nondistended. EXTREMITIES: Trace lower extremity edema. NEUROLOGIC: Awake, alert and oriented x3. No focal motor deficits. LABORATORY DATA: Morning labs are pending. ASSESSMENT: The patient is a 67 year old man with a past medical history of AFib, GERD and chronic systolic CHF who presented for evaluation of a 2 day history of exertional dyspnea and was admitted for management of COPD, acute on chronic systolic HF exacerbation and to optimize glycemic control whose workup in the hospital demonstrated [id number] mitral valve disease with pending evaluation for repair of mitral valve. PLAN: 1. Acute on chronic systolic heart failure exacerbation. Input from Dr. Johnson greatly appreciated. Continue Lasix 40 mg IV b.i.d. Continue supplemental oxygen as needed. Monitor strict I & O's. 2. [id number] mitral regurgitation. Input from Dr. Johnson noted and greatly appreciated. In the setting of [id number] mitral regurgitation and pulmonary hypertension, arrangements will be made for surgical evaluation for repair or replacement of his mitral valve. 3. Pulmonary hypertension. Continue with supplemental oxygen and bronchodilators as needed. We will discuss with Dr. Reddy the initiation of medications for the patient's severe pulmonary hypertension. 4. AFib, rate controlled. Continue Diltiazem CD 180 mg p.o. daily and Aspirin 81 mg p.o. daily. In anticipation of the patient's mitral valve repair, we will hold Coumadin and start therapeutic Lovenox at 80 mg subcutaneous every 12 hours. 5. Hypertension. Blood pressure controlled. Continue Diltiazem CD 180 mg p.o. daily and Lisinopril 5 mg p.o. daily. 6. Type 2 diabetes mellitus. Continue Glipizide 10 mg p.o. b.i.d., Metformin 1000 mg p.o. b.i.d. and Levemir 18 units subcutaneous every evening. Continue to monitor fingersticks before every meal and at bedtime. 7. GERD. Continue Protonix 40 mg p.o. daily. 8. Anxiety. Continue Xanax 0.5 mg p.o. b.i.d. 9. Prophylaxis. Continue Protonix for GI prophylaxis. The patient remains on Lovenox thus DVT prophylaxis is not indicated. CODE STATUS: Full code. Pedro Araiza MD MTDD
[2017-11-04] MEDS: Tiotropium 18 mcg Cap For Inhalation IH SCH (10:49)
[2017-11-04] MEDS: Insulin Reg-MEDIUM-Coverage SC SCH ×3 (10:54→17:05)
[2017-11-04] MEDS: diltiaZEM 180 mg/24 Hours CD Cap PO SCH (10:54)
[2017-11-04 17:55] VITALS: BP 108/72
[2017-11-04 20:23] VITALS: PULSE 107; RESP 20; O2SAT 94
--- NOTE | 2017-11-06 09:31 | PN ---
DATE: 11/04/2017 PULMONARY PROGRESS NOTE SUBJECTIVE: The patient was seen and examined at bedside. He is currently receiving inhalation treatment with Brovana and budesonide. He is also on Spiriva daily. Xopenex is administered as a p.r.n. medication. He is also on Lovenox twice a day as well as Lasix twice a day intravenously. The patient is on oxygen by nasal cannula. The patient reports elevated pulmonary arterial pressures and elevated wedge pressure on most recent Cardiology evaluation. He was seen by Dr. Kim this morning and was told that he had severe mitral regurgitation on echocardiogram. In addition to that, he has COPD smoker. PHYSICAL EXAMINATION VITAL SIGNS: Temperature is 98.5, pulse 88, respirations 20, blood pressure is 117/70 and oxygen saturation on nasal cannula is 93%. HEAD, EARS, NOSE AND THROAT: Within normal limits. NECK: Supple. There is no jugular vein distention. CHEST: Symmetrical. HEART: S1 and S2. No S3. Regular. A 3/6 systolic ejection murmur. LUNGS: Diminished breath sounds at both bases with a few rhonchi. No wheezing. GASTROINTESTINAL: Soft, nontender with no organomegaly. EXTREMITIES: 1+ pedal edema. SKIN: Clear with no cyanosis and no skin rashes. NEUROLOGIC: No focal deficits. ASSESSMENT 1. Severe pulmonary hypertension. 2. Severe mitral regurgitation and tricuspid regurgitation. 3. Coronary artery disease. 4. Chronic obstructive pulmonary disease. 5. History of active smoking. 6. Diabetes. The patient's pulmonary hypertension seems to be secondary to the severe mitral regurgitation. As per Dr. Kim, the valvular problem will have to be addressed surgically. Following that, the assessment of residual pulmonary hypertension will be made. He may not require pulmonary hypertension medications in the future if valvular problem solves the problem of pulmonary hypertension; however, in this longstanding situation, some residual pulmonary hypertension and right ventricular dysfunction may be present. We will evaluate then for need for any medications on that side. Ean Taylor MD
--- NOTE | 2017-11-07 03:02 | DS ---
ADMITTING DIAGNOSIS: Acute on chronic systolic heart failure exacerbation. DISCHARGE DIAGNOSES: Acute on chronic systolic heart failure exacerbation, severe pulmonary hypertension and [id number] mitral regurgitation. SECONDARY DIAGNOSES: Insulin-dependent diabetes mellitus, COPD, AFib, HTN, GERD and anxiety disorder. CONSULTATIONS: Dr. Johnson (Cardiology) and Dr. Reddy (Pulmonary and Critical Care Medicine) . IMAGING STUDIES: 1. Chest x-ray demonstrated moderate cardiomegaly with mild vascular congestion. 2. CT of the chest with IV contrast demonstrated no evidence of PE but did demonstrate a moderate right pleural effusion and hazy ground-glass opacity infiltration in the right upper and right lower lungs. DIAGNOSTIC STUDIES: TTE demonstrated biatrial enlargement with mild concentric LVH, a mildly reduced LV systolic function with septal flattening and dyskinesis consistent with RV pressure overload, sdnvirwd-bw-eomuiy mitral regurgitation and severe pulmonary hypertension with an estimated RVSP of 85 mmHg. PROCEDURES: Right heart cardiac catheterization demonstrated moderately elevated right heart pressures with elevated pulmonary capillary wedge pressure consistent with severe mitral valve disease. HISTORY OF PRESENT ILLNESS: The patient is a 67 year old man with multiple medical comorbidities including AFib and CHF who presented to the [facility] for evaluation of a 2 day history of external dyspnea. The patient was seen in his PMD's office 3 days prior to presentation with the aforementioned symptoms and was prescribed an inhaler for COPD. The patient has a history of noncompliance with his medication and it is unclear if the inhaler was used as directed. Given his persistent pulmonary symptoms, he opted for ED evaluation. Upon arrival to the ED he was noted to be afebrile and hemodynamically stable and had an oxygen saturation of 94% on room air. Given his persistent respiratory distress, he was admitted for pulmonary evaluation. HOSPITAL COURSE: Upon admission to the general medical he was maintained on supplemental oxygen, inhaled corticosteroids and bronchodilators as needed. He was evaluated by Dr. Reddy of Pulmonary and Critical Care Medicine. A TTE demonstrated severe pulmonary hypertension. The patient underwent a cardiac catheterization with Dr. Johnson, which demonstrated severe pulmonary hypertension and severe mitral valve regurgitation. Given his persistent pulmonary symptoms in the setting of severe pulmonary hypertension and mitral valve disease, arrangements were made for a transfer to [facility] for mitral valve repair or replacement. The patient was then evaluated by TCU as it was felt he would benefit from continued IV diuretics and physical therapy and on hospital day #6 was accepted for a transfer to the TCU. CONDITION: Fair, improved. DISPOSITION: TCU. DISCHARGE MEDICATIONS: Diltiazem CD 180 mg p.o. daily, Metformin 1000 mg p.o. b.i.d., Glipizide 10 mg p.o. b.i.d., Levemir 18 units SC q pm, Gabapentin 300 mg p.o. t.i.d., Aspirin 81 mg p.o. daily, Nexium 40 mg p.o. daily, Lisinopril 5 mg p.o. daily and Lasix 40 mg p.o. b.i.d. FOLLOWUP: The patient will be followed by his PMD and the consultants while on the TCU. Pedro Araiza MD MTDM[facility]ret
== END 2017-11-04 18:03 | DRG 287 ==
LOC: ED 22:07 → ERH 10-29 05:39 → 5RSO 10-29 06:54 → 5RNO 10-30 12:54 → OBSVTOIN 10-30 14:48 → 2RNO 11-03 08:39 → 5RNO 11-03 15:26
PROVIDERS: ADMIT Student in an Organized Health Care Education/Training Program; ATTEND Student in an Organized Health Care Education/Training Program
PROC: 4A023N6 Measurement of Cardiac Sampling and Pressure, Right Heart, Percutaneous Approach (ICD-10-PCS; principal; 2017-11-03)
DX: I11.0 Hypertensive heart disease with heart failure (principal); J44.0 Chronic obstructive pulmonary disease with (acute) lower respiratory infection; I50.43 Acute on chronic combined systolic (congestive) and diastolic (congestive) heart failure; I48.2 Chronic atrial fibrillation; J98.01 Acute bronchospasm; I27.20 Pulmonary hypertension, unspecified; I25.10 Atherosclerotic heart disease of native coronary artery without angina pectoris; K21.9 Gastro-esophageal reflux disease without esophagitis; K59.00 Constipation, unspecified; I08.1 Rheumatic disorders of both mitral and tricuspid valves; F41.9 Anxiety disorder, unspecified; F17.210 Nicotine dependence, cigarettes, uncomplicated; E78.5 Hyperlipidemia, unspecified; E10.65 Type 1 diabetes mellitus with hyperglycemia; E66.3 Overweight; Z79.01 Long term (current) use of anticoagulants; Z95.5 Presence of coronary angioplasty implant and graft; Z68.29 Body mass index [BMI] 29.0-29.9, adult

== ENCOUNTER 2017-11-04 18:03 | Inpatient (IN) | payer OTHER ==
[2017-11-04] MEDS ORDERED: Levalbuterol 1.25 MG/3 ML Inhal Soln UD IH PRN (18:56)
[2017-11-04 21:24] VITALS: BMI 29.4
[2017-11-04] MEDS: Insulin Reg-MEDIUM-Coverage SC SCH (21:53)
[2017-11-04] MEDS ORDERED: Pneumococcal 23-Valent Vaccine IM ONE (22:07)
[2017-11-04] MEDS: Budesonide 0.5 mg/2 ml Inhal Susp UD IH SCH (23:30)
[2017-11-04] MEDS: Arformoterol 15 mcg/2 ml Inh Sol IH SCH (23:30)
[2017-11-05] MEDS: Enoxaparin 80 mg Syringe SC SCH ×2 (05:54→18:15)
[2017-11-05] MEDS: Pantoprazole 40 mg EC Tab PO SCH (05:55)
[2017-11-05] MEDS: Insulin Reg-MEDIUM-Coverage SC SCH ×4 (06:37→22:09)
[2017-11-05 06:46] LABS: BASO # 0.02 K/mm3 (0.0-2.0); BASO % 0.2 % (0.0-3.0); EOS # 0.3 (0.0-0.7); EOS % 2.9 % (1.5-5.0); GRAN # 5.31 (1.4-6.5); GRAN % 61.9 % (50.0-68.0); HEMOGLOBIN 13.8 g/dL (14.0-18.0); LYMPH # 2.3 (1.2-3.4); LYMPH % 26.3 % (22.0-35.0); MEAN CORPUSCULAR HEMOGLOBIN 30.7 pg (25.0-35.0); MEAN CORPUSCULAR HGB CONC 31.9 g/dl (31.0-37.0); MEAN PLATELET VOLUME 12.6 fl (7.0-11.0); MONO # 0.8 (0.1-0.6); MONO % 8.7 % (1.0-6.0); RBC 4.5 10^6/uL (3.5-6.1); RED CELL DISTRIBUTION WIDTH 12.3 % (11.5-14.5); WHITE BLOOD COUNT 8.6 10^3/ul (4.5-11.0)
[2017-11-05 07:07] LABS: INR 1.17 (0.93-1.08); PROTHROMBIN TIME 13.5 SECONDS (9.4-12.5)
[2017-11-05] MEDS: Budesonide 0.5 mg/2 ml Inhal Susp UD IH SCH ×2 (07:31→21:40)
[2017-11-05] MEDS: Arformoterol 15 mcg/2 ml Inh Sol IH SCH ×2 (07:32→21:40)
[2017-11-05 07:49] LABS: ALB/GLOB RATIO 1.5 (1.1-1.8); ALBUMIN 3.7 g/dL (3.0-4.8); ALT/SGPT 28 U/L (7-56); AST/SGOT 17 U/L (17-59); BLOOD UREA NITROGEN 29 mg/dL (7-21); CALCIUM 9.2 mg/dL (8.4-10.5); GFR AFRICAN-AMERICAN > 60; GFR NON-AFRICAN AMERICAN 55
--- NOTE | 2017-11-05 07:50 | CP.PCM.PN ---
Subjective - Date & Time of Evaluation Date of Evaluation: 11/05/17 Time of Evaluation: 07:00 - Subjective Subjective: Stable in TCU now. Some cough. No CP or SOB. V/S noted. PE: Lungs: rhonchi Cor.: irreg S1S2 Abd.: soft Ext.; no edema Neuro.: alert Labs noted. Objective - Vital Signs/Intake and Output Vital Signs (last 24 hours): Temp Pulse Resp BP Pulse Ox 98 F 85 18 97/56 L 96 11/05/17 06:00 11/05/17 06:00 11/05/17 06:00 11/05/17 06:00 11/05/17 06:00 - Medications Medications: Current Medications Alprazolam (Xanax) 0.5 mg PO BID PRN; Protocol PRN Reason: Anxiety Last Admin: 11/04/17 21:48 Dose: 0.5 mg Arformoterol Tartrate (Brovana) 15 mcg IH [id number] [facility]ARD[facility] PRN Reason: Protocol Last Admin: 11/05/17 07:32 Dose: 15 mcg Benzonatate (Tessalon Perles) 200 mg PO TID PRN; Protocol PRN Reason: Cough Last Admin: 11/04/17 21:50 Dose: 200 mg Budesonide (Pulmicort Respules) 0.5 mg IH [id number] [facility] PRN Reason: Protocol Last Admin: 11/05/17 07:31 Dose: 0.5 mg Diltiazem HCl (Cardizem Cd) 180 mg PO DAILY [facility]ARDO PRN Reason: Protocol Enoxaparin Sodium (Lovenox) 80 mg SC 0600,1800 [facility]O PRN Reason: Protocol Last Admin: 11/05/17 05:54 Dose: 80 mg Furosemide (Lasix) 40 mg IVP BID LEONARDO PRN Reason: Protocol Gabapentin (Neurontin) 300 mg PO TID LEONARDO PRN Reason: Protocol Glipizide (Glucotrol) 10 mg PO 0730,1630 [facility] PRN Reason: Protocol Insulin Detemir (Levemir) 18 unit SC QPM [facility] PRN Reason: Protocol Insulin Human Regular (Humulin R Med) 0 units SC ACHS [facility]ARDO PRN Reason: Protocol Last Admin: 11/05/17 06:37 Dose: Not Given Levalbuterol HCl (Xopenex) 1.25 mg IH Q8H PRN; Protocol PRN Reason: Shortness of Breath Metformin HCl (Glucophage) 1,000 mg PO BID LEONARDO PRN Reason: Protocol Pantoprazole Sodium (Protonix Ec Tab) 40 mg PO 0600 [facility]O PRN Reason: Protocol Last Admin: 11/05/17 05:55 Dose: 40 mg Potassium Chloride (K-Dur 20 Meq Er Tab) 20 meq PO BRKDIN [facility] PRN Reason: Protocol Tiotropium [place] (Spiriva) 18 mcg IH DAILY [facility] PRN Reason: Protocol - Labs Labs: 11/05/17 06:00 PT 13.5 SECONDS (9.4-12.5) H 11/05/17 06:00 INR 1.17 (0.93-1.08) H 11/05/17 06:00 Assessment and Plan - Assessment and Plan (Free Text) Assessment: Dyspnea/Cough CHF Mod/sev MR with mod. TR and severe PH Mild LVD and CAD Chronic AF COPD/Smoker Pleural effusion HBP HLD Diabetes Plan: CMP pending. Continue IV Lasix Lovenox Will arrange transfer to [facility] for MVR or Repair As per pulm. and Dr. Araiza OOB/PT
[2017-11-05] MEDS: Potassium Chloride 20 mEq ER Tab PO SCH ×2 (08:43→18:15)
[2017-11-05] MEDS: Tiotropium 18 mcg Cap For Inhalation IH SCH (11:10)
[2017-11-05] MEDS: diltiaZEM 180 mg/24 Hours CD Cap PO SCH (18:10)
[2017-11-05] MEDS: Insulin Detemir 100 units/ml Vial (Levemir) SC SCH (18:35)
[2017-11-06] MEDS: Pantoprazole 40 mg EC Tab PO SCH (06:05)
[2017-11-06] MEDS: Enoxaparin 80 mg Syringe SC SCH ×2 (06:05→17:31)
[2017-11-06] MEDS: Insulin Reg-MEDIUM-Coverage SC SCH ×4 (06:31→22:30)
[2017-11-06 07:16] LABS: BASO # 0.02 K/mm3 (0.0-2.0); BASO % 0.2 % (0.0-3.0); EOS # 0.2 (0.0-0.7); EOS % 2.5 % (1.5-5.0); GRAN # 6.04 (1.4-6.5); GRAN % 62.3 % (50.0-68.0); HEMOGLOBIN 13.4 g/dL (14.0-18.0); LYMPH # 2.6 (1.2-3.4); LYMPH % 26.8 % (22.0-35.0); MEAN CELL VOLUME 94.8 fl (80.0-105.0); MEAN CORPUSCULAR HEMOGLOBIN 30.2 pg (25.0-35.0); MEAN CORPUSCULAR HGB CONC 31.8 g/dl (31.0-37.0); MEAN PLATELET VOLUME 12.4 fl (7.0-11.0); MONO # 0.8 (0.1-0.6); MONO % 8.2 % (1.0-6.0); RBC 4.44 10^6/uL (3.5-6.1); RED CELL DISTRIBUTION WIDTH 12.2 % (11.5-14.5); WHITE BLOOD COUNT 9.7 10^3/ul (4.5-11.0)
[2017-11-06] MEDS: Potassium Chloride 20 mEq ER Tab PO SCH ×2 (07:57→17:31)
--- NOTE | 2017-11-06 08:00 | CP.PCM.PN ---
Subjective - Date & Time of Evaluation Date of Evaluation: 11/06/17 Time of Evaluation: 07:00 - Subjective Subjective: Stable in TCU now. Some cough. No CP or SOB. V/S noted. PE: Lungs: rhonchi Cor.: irreg S1S2 Abd.: soft Ext.; no edema Neuro.: alert Labs today. CBC OK. CMP pending.. BSs noted. Objective - Vital Signs/Intake and Output Vital Signs (last 24 hours): Temp Pulse Resp BP Pulse Ox 98.8 F 97 H 18 86/59 L 97 11/06/17 06:00 11/06/17 06:00 11/06/17 06:00 11/06/17 06:00 11/06/17 06:00 - Medications Medications: Current Medications Alprazolam (Xanax) 0.5 mg PO BID PRN; Protocol PRN Reason: Anxiety Last Admin: 11/05/17 22:07 Dose: 0.5 mg Arformoterol Tartrate (Brovana) 15 mcg IH [id number] LEONARDO PRN Reason: Protocol Last Admin: 11/05/17 21:40 Dose: 15 mcg Benzonatate (Tessalon Perles) 200 mg PO TID PRN; Protocol PRN Reason: Cough Last Admin: 11/05/17 22:08 Dose: 200 mg Budesonide (Pulmicort Respules) 0.5 mg IH [id number] LEONARDO PRN Reason: Protocol Last Admin: 11/05/17 21:40 Dose: 0.5 mg Diltiazem HCl (Cardizem Cd) 180 mg PO DAILY LEONARDO PRN Reason: Protocol Last Admin: 11/05/17 18:10 Dose: 180 mg Enoxaparin Sodium (Lovenox) 80 mg SC 0600,1800 LEONARDO PRN Reason: Protocol Last Admin: 11/06/17 06:05 Dose: 80 mg Furosemide (Lasix) 40 mg IVP BID LEONARDO PRN Reason: Protocol Last Admin: 11/05/17 18:08 Dose: 40 mg Gabapentin (Neurontin) 300 mg PO TID LEONARDO PRN Reason: Protocol Last Admin: 11/05/17 18:14 Dose: 300 mg Glipizide (Glucotrol) 10 mg PO 0730,1630 LEONARDO PRN Reason: Protocol Last Admin: 11/05/17 18:11 Dose: 10 mg Insulin Detemir (Levemir) 18 unit SC QPM LEONARDO PRN Reason: Protocol Last Admin: 11/05/17 18:35 Dose: 18 unit Insulin Human Regular (Humulin R Med) 0 units SC ACHS LEONARDO PRN Reason: Protocol Last Admin: 11/06/17 06:31 Dose: Not Given Levalbuterol HCl (Xopenex) 1.25 mg IH Q8H PRN; Protocol PRN Reason: Shortness of Breath Metformin HCl (Glucophage) 1,000 mg PO BID LEONARDO PRN Reason: Protocol Last Admin: 11/05/17 18:10 Dose: 1,000 mg Pantoprazole Sodium (Protonix Ec Tab) 40 mg PO 0600 LEONARDO PRN Reason: Protocol Last Admin: 11/06/17 06:05 Dose: 40 mg Potassium Chloride (K-Dur 20 Meq Er Tab) 20 meq PO BRKDIN LEONARDO PRN Reason: Protocol Last Admin: 11/05/17 18:15 Dose: 20 meq Tiotropium [place] (Spiriva) 18 mcg IH DAILY LEONARDO PRN Reason: Protocol Last Admin: 11/05/17 11:10 Dose: 18 mcg - Labs Labs: 11/06/17 06:30 11/05/17 07:00 PT 13.5 SECONDS (9.4-12.5) H 11/05/17 06:00 INR 1.17 (0.93-1.08) H 11/05/17 06:00 Assessment and Plan - Assessment and Plan (Free Text) Assessment: Dyspnea/Cough CHF Mod/sev MR with mod. TR and severe PH Mild LVD and CAD Chronic AF COPD/Smoker Pleural effusion HBP HLD Diabetes Plan: CMP pending. Continue IV Lasix Lovenox Will arrange transfer to [facility] for MVR or Repair As per pulm. and Dr. Araiza OOB/PT
[2017-11-06] MEDS: Arformoterol 15 mcg/2 ml Inh Sol IH SCH ×2 (08:08→21:40)
[2017-11-06] MEDS: Budesonide 0.5 mg/2 ml Inhal Susp UD IH SCH ×2 (08:08→21:40)
--- NOTE | 2017-11-06 09:02 | PN ---
DATE: 11/06/2017 PULMONARY NOTE SUBJECTIVE: The patient appears comfortable this morning. He is not short of breath at rest. OBJECTIVE VITAL SIGNS: Temperature is 98.8, pulse is approximately 88, respiratory rate 18, last blood pressure recorded 86/59. Oxygen saturation on nasal cannula is 97%. HEENT: Normocephalic, atraumatic. No JVD. CARDIOVASCULAR: Systolic ejection murmur at the lower left sternal border. Positive S3 gallop. LUNGS: Less crackles at the bases. Very minimal/less rhonchi. No wheezing. EXTREMITIES: Less edema. No cyanosis, no clubbing. Calves are nontender to palpation. GASTROINTESTINAL: Abdomen is soft, nontender and nondistended. Bowel sounds are positive. SKIN: No acute rash. NEUROLOGIC: Exam limited at the present time. IMPRESSION 1. Acute congestive heart failure. 2. Right pleural effusion. 3. Coronary artery disease. 4. Chronic obstructive pulmonary disease. 5. Pulmonary hypertension. 6. Mitral valve disease. PLAN: The patient appears quite comfortable this morning. He is not short of breath at rest. He does state to feeling much better overall. On physical exam, there is certainly less bronchospasm noted. In addition, the alveolar-arterial gradient is also much less. I will continue with the current nebulizer treatments and inhaled steroids for now. I did review the cardiac catheterization results - from Monday. Moderate pulmonary hypertension is noted. In addition, severe mitral valve disease is also noted. I have also reviewed the note by Dr. Kim (Cardiology). The patient is for possible transfer to [facility] for mitral valve replacement or repair. I will discuss the above with Cardiology this morning. The clinical status of this patient is certainly improved - compared to the initial presentation. However, his overall status/prognosis does remain very guarded. I will hold off on starting this patient on medications for his pulmonary hypertension, pending possible surgical intervention. I will discuss the above with Dr. Araiza this morning. Seth Reddy MD ROSMERY
[2017-11-06] MEDS: Tiotropium 18 mcg Cap For Inhalation IH SCH (10:16)
[2017-11-06] MEDS: diltiaZEM 180 mg/24 Hours CD Cap PO SCH (10:16)
--- NOTE | 2017-11-06 12:45 | HP ---
HISTORY OF PRESENT ILLNESS: The patient is a 67 year old man with multiple medical comorbidities including chronic systolic CHF and COPD who was admitted to [facility] for evaluation of a several day history of worsening dyspnea with exertion, LE edema and cough with scant clear sputum production. Workup during this hospitalization found the patient to have severe pulmonary hypertension and severe mitral regurgitation. Arrangements were made for transfer to [facility] for surgical intervention of his severe mitral valve disease. He was also evaluated by PT and was determined to benefit from continue IV diuresis, PT and respiratory treatments pending his transfer to [facility]. As such he was transferred to the TCU for the aforementioned care pending acceptance to [facility]. PAST MEDICAL HISTORY: As per HPI, also AFib, HTN, HL, IDDM, GERD and insomnia. PAST SURGICAL HISTORY: As per HPI. ALLERGIES: NKDA. MEDICATIONS: Diltiazem CD 180 mg p.o. daily, Warfarin 5 mg p.o. daily, Metformin 1000 mg p.o. b.i.d., Glipizide 10 mg p.o. b.i.d., Gabapentin 300 mg p.o. t.i.d., Aspirin 81 mg p.o. daily, Nexium 40 mg p.o. daily, Lisinopril 5 mg p.o. daily and Lasix 40 mg p.o. b.i.d. FAMILY HISTORY: Noncontributory. SOCIAL HISTORY: The patient reports a 30-pack year smoking history and social alcohol use. He denies illicit drug abuse. REVIEW OF SYSTEMS: A 14-point review of systems is negative except as per HPI. PHYSICAL EXAMINATION VITAL SIGNS: Temperature 98.8, pulse 97, blood pressure 130/86, respiratory rate 20, oxygen saturation 97% on 3 liters nasal cannula. GENERAL: No apparent distress. HEENT: PERRL. EOMI. No scleral icterus. No conjunctival pallor. NECK: Supple with full range of motion. No JVD. No bruits. LUNGS: Decreased breath sounds at the bases. CARDIOVASCULAR: Regular rate and rhythm. Normal S1 and S2. Grade II/ murmur to left lower sternal border. ABDOMEN: Normoactive bowel sounds, soft, nontender, nondistended. EXTREMITIES: Trace lower extremity edema. NEUROLOGIC: Awake, alert, and oriented x3. No focal motor deficits. LABORATORY DATA: CBC reviewed and unremarkable. CMP pending. ASSESSMENT: The patient is a 67 year old man with multiple medical comorbidities including AFib, chronic systolic CHF and COPD who presented for evaluation of a several day history of exertional dyspnea and who was admitted for management of COPD and CHF exacerbation whose hospital workup demonstrated [id number] mitral valve disease with arrangements pending for transfer to [facility] for surgical intervention of mitral valve disease. PLAN: 1. Acute on chronic systolic heart failure exacerbation, resolving. Input from Dr. Kim noted and greatly appreciated. Continue with Lasix 40 mg IV b.i.d. Monitor strict I & O's. 2. [id number] mitral regurgitation. As above, input from Dr. Kim appreciated. Arrangements are being made for transfer to [facility] for surgical intervention. 3. Pulmonary hypertension. Continue supplemental oxygen and bronchodilators as needed. Input from Dr. Reddy greatly appreciated. 4. AFib, rate controlled. Continue diltiazem CD 180 mg p.o. daily and aspirin 81 mg p.o. daily. In anticipation of the patient's mitral valve repair, Coumadin has been on hold and the patient remains on therapeutic Lovenox. 5. Hypertension. Blood pressure controlled. Continue current medications. 6. Type 2 diabetes mellitus. Continue glipizide 10 mg p.o. b.i.d., Metformin 1000 mg p.o. b.i.d. and Levemir 18 units SC every evening. Continue to monitor fingersticks before every meal and at bedtime. 7. GERD. Continue Protonix 40 mg p.o. daily. 8. Anxiety. Continue Xanax 0.5 mg p.o. b.i.d. 9. Prophylaxis. Continue Protonix for GI prophylaxis. The patient remains on Lovenox, thus DVT prophylaxis is not indicated. CODE STATUS: Full code. Pedro Araiza MD MTDD
[2017-11-06] MEDS: Insulin Detemir 100 units/ml Vial (Levemir) SC SCH (17:37)
[2017-11-07] MEDS: Pantoprazole 40 mg EC Tab PO SCH (05:36)
[2017-11-07] MEDS: Enoxaparin 80 mg Syringe SC SCH (05:36)
[2017-11-07] MEDS: Insulin Reg-MEDIUM-Coverage SC SCH ×2 (06:29→12:22)
[2017-11-07 06:59] LABS: HEMOGLOBIN 13.4 g/dL (14.0-18.0); MEAN CELL VOLUME 95.7 fl (80.0-105.0); MEAN CORPUSCULAR HEMOGLOBIN 30.4 pg (25.0-35.0); MEAN CORPUSCULAR HGB CONC 31.8 g/dl (31.0-37.0); MEAN PLATELET VOLUME 12.5 fl (7.0-11.0); RBC 4.41 10^6/uL (3.5-6.1); RED CELL DISTRIBUTION WIDTH 12.4 % (11.5-14.5); WHITE BLOOD COUNT 8.6 10^3/ul (4.5-11.0)
[2017-11-07] MEDS: Arformoterol 15 mcg/2 ml Inh Sol IH SCH (07:17)
[2017-11-07] MEDS: Budesonide 0.5 mg/2 ml Inhal Susp UD IH SCH (07:17)
[2017-11-07 07:34] LABS: ALB/GLOB RATIO 1.3 (1.1-1.8); ALBUMIN 3.8 g/dL (3.0-4.8); ALT/SGPT 21 U/L (7-56); AST/SGOT 20 U/L (17-59); BLOOD UREA NITROGEN 31 mg/dL (7-21); GFR AFRICAN-AMERICAN > 60; GFR NON-AFRICAN AMERICAN 55
--- NOTE | 2017-11-07 07:38 | CP.PCM.PN ---
Subjective - Date & Time of Evaluation Date of Evaluation: 11/07/17 Time of Evaluation: 07:00 - Subjective Subjective: Stable in TCU now. Some cough. No CP or SOB. He feels OK. Awaits bed at [facility] for CVS eval and MVR V/S noted. PE: Lungs: rhonchi Cor.: irreg S1S2 Abd.: soft Ext.; no edema Neuro.: alert Labs today. CBC OK. CMP pending.. BSs noted. Objective - Vital Signs/Intake and Output Vital Signs (last 24 hours): Temp Pulse Resp BP Pulse Ox 97.6 F 87 18 115/71 95 11/06/17 10:00 11/06/17 10:16 11/06/17 10:00 11/06/17 17:35 11/06/17 10:00 - Medications Medications: Current Medications Alprazolam (Xanax) 0.5 mg PO BID PRN; Protocol PRN Reason: Anxiety Last Admin: 11/06/17 22:04 Dose: 0.5 mg Arformoterol Tartrate (Brovana) 15 mcg IH [id number] LEONARDO PRN Reason: Protocol Last Admin: 11/07/17 07:17 Dose: 15 mcg Benzonatate (Tessalon Perles) 200 mg PO TID PRN; Protocol PRN Reason: Cough Last Admin: 11/06/17 22:04 Dose: 200 mg Budesonide (Pulmicort Respules) 0.5 mg IH [id number] LEONARDO PRN Reason: Protocol Last Admin: 11/07/17 07:17 Dose: 0.5 mg Diltiazem HCl (Cardizem Cd) 180 mg PO DAILY LEONARDO PRN Reason: Protocol Last Admin: 11/06/17 10:16 Dose: 180 mg Enoxaparin Sodium (Lovenox) 80 mg SC 0600,1800 LEONARDO PRN Reason: Protocol Last Admin: 11/07/17 05:36 Dose: 80 mg Furosemide (Lasix) 40 mg IVP BID LEONARDO PRN Reason: Protocol Last Admin: 11/06/17 17:35 Dose: 40 mg Gabapentin (Neurontin) 300 mg PO TID LEONARDO PRN Reason: Protocol Last Admin: 11/06/17 17:31 Dose: 300 mg Glipizide (Glucotrol) 10 mg PO 0730,1630 LEONARDO PRN Reason: Protocol Last Admin: 11/06/17 17:29 Dose: 10 mg Insulin Detemir (Levemir) 18 unit SC QPM LEONARDO PRN Reason: Protocol Last Admin: 11/06/17 17:37 Dose: 18 unit Insulin Human Regular (Humulin R Med) 0 units SC ACHS LEONARDO PRN Reason: Protocol Last Admin: 11/07/17 06:29 Dose: Not Given Levalbuterol HCl (Xopenex) 1.25 mg IH Q8H PRN; Protocol PRN Reason: Shortness of Breath Metformin HCl (Glucophage) 1,000 mg PO BID LEONARDO PRN Reason: Protocol Last Admin: 11/06/17 17:31 Dose: 1,000 mg Pantoprazole Sodium (Protonix Ec Tab) 40 mg PO 0600 LEONARDO PRN Reason: Protocol Last Admin: 11/07/17 05:36 Dose: 40 mg Potassium Chloride (K-Dur 20 Meq Er Tab) 20 meq PO BRKDIN LEONARDO PRN Reason: Protocol Last Admin: 11/06/17 17:31 Dose: 20 meq Tiotropium [place] (Spiriva) 18 mcg IH DAILY LEONARDO PRN Reason: Protocol Last Admin: 11/06/17 10:16 Dose: 18 mcg - Labs Labs: 11/07/17 06:30 11/07/17 06:30 PT 13.5 SECONDS (9.4-12.5) H 11/05/17 06:00 INR 1.17 (0.93-1.08) H 11/05/17 06:00 Assessment and Plan - Assessment and Plan (Free Text) Assessment: Dyspnea/Cough CHF Mod/sev MR with mod. TR and severe PH Mild LVD and CAD Chronic AF COPD/Smoker Pleural effusion HBP HLD Diabetes Plan: CMP pending. Continue IV Lasix Lovenox Will arrange transfer to [facility] for MVR or Repair later today As per pulm. and Dr. Araiza OOB/PT
[2017-11-07] MEDS: Potassium Chloride 20 mEq ER Tab PO SCH (07:53)
--- NOTE | 2017-11-07 08:21 | PN ---
DATE: 11/07/2017 PULMONARY NOTE SUBJECTIVE: The patient appears comfortable this morning. He is not short of breath at rest. PHYSICAL EXAMINATION: VITAL SIGNS: (Last noted in the computer): Temperature is 97.6, pulse 87, respirations 18, blood pressure 115/71. Oxygen saturation on nasal cannula is 95-97%. HEENT: Normocephalic, atraumatic. No JVD. CARDIOVASCULAR: Systolic ejection murmur at the lower left sternal border. Positive S3 gallop. LUNGS: Less crackles at the bases. Very minimal/less rhonchi. No wheezing. EXTREMITIES: Less edema. No cyanosis. No clubbing. Calves are nontender to palpation. GI: Abdomen is soft, nontender and nondistended. Bowel sounds are positive. SKIN: No acute rash. NEUROLOGIC: Limited at the present time. IMPRESSION: 1. Acute congestive heart failure. 2. Right pleural effusion. 3. Coronary artery disease. 4. Chronic obstructive pulmonary disease. 5. Pulmonary hypertension. 6. Mitral valve disease. PLAN: The patient appears comfortable this morning. He is not short of breath at rest. He does state to feeling much better overall. On physical exam, his bronchospasm continues to resolve. In addition, there is no significant alveolar-arterial gradient. I will continue with the current nebulizer treatments and inhaled steroids for now. I did discuss the case with the night nurse at length. I have also reviewed the note by Dr. Kim (Cardiology). The patient is for transfer to [facility] for mitral valve surgery - hopefully later today. The patient remains on intravenous Lasix. I did have a long talk with the patient again this morning. Postsurgically, we will need to repeat the studies for pulmonary hypertension. The patient is very well aware that he will need to follow up with me in the office after discharge. He fully agrees. I did discuss the above with Dr. Araiza. Seth Reddy MD [facility] CENTER[facility]ret
--- NOTE | 2017-11-07 09:33 | PN ---
SUBJECTIVE: The patient was seen and examined at bedside on the TCU. No acute events overnight. He remains afebrile and hemodynamically stable and is pending transfer [facility] for surgical evaluation of his severe mitral valve disease. This morning he states he feels okay and offers no complaints. OBJECTIVE: VITAL SIGNS: Temperature 98.4, pulse 88, blood pressure 115/71, respiratory rate 20, oxygen saturation 99% on 2 L nasal cannula. GENERAL: No apparent distress. HEENT: PERRL, EOMI. No scleral icterus. No conjunctival pallor. NECK: Supple with full range of motion. No JVD. No bruits. LUNGS: Decreased breath sounds at the bases. CARDIOVASCULAR: Regular rate and rhythm. Normal S1 and S2. Grade II/ murmur at the left lower sternal border. ABDOMEN: Normoactive bowel sounds. Soft, nontender and nondistended. EXTREMITIES: Trace lower extremity edema. NEUROLOGIC: Awake, alert and oriented x 3. No focal motor deficits. LABORATORY DATA: Morning labs are pending. ASSESSMENT: The patient is a 67 year old man with multiple medical comorbidities including AFib, chronic systolic CHF and COPD who presented for evaluation of a several day history of exertional dyspnea and who was admitted for management of COPD and CHF exacerbation whose hospital workup demonstrated moderate to severe mitral valve disease who is now pending transfer to [facility] for surgical intervention of mitral valve disease. PLAN: 1. Acute on chronic systolic heart failure exacerbation, resolved. Input from Dr. Kim appreciated. Continue with Lasix 40 mg IV b.i.d. 2. Moderate to severe mitral regurgitation. As above, input from Dr. Kim appreciated and the patient is pending transfer to [facility] for surgical intervention. 3. Pulmonary hypertension. Input from Dr. Reddy appreciated and we will defer initiation of therapy pending the patient's repair of his underlying mitral valve. 4. AFib, rate controlled. Continue with Diltiazem CD 180 mg p.o. daily and Aspirin 81 mg p.o. daily. In anticipation of the patient's mitral valve repair , Coumadin has been on hold and he remains on therapeutic Lovenox. 5. Hypertension. Blood pressure controlled. Continue current medications. 6. Type 2 diabetes mellitus. Continue Glipizide 10 mg p.o. b.i.d., Metformin 1000 mg p.o. b.i.d. and Levemir 18 units SC q pm. Continue to monitor fingersticks before every meal and at bedtime. 7. GERD. Continue Protonix 40 mg p.o. daily. 8. Anxiety. Continue Xanax 0.5 mg p.o. b.i.d. 9. Prophylaxis. Continue Protonix for GI prophylaxis. The patient remains on Lovenox thus DVT prophylaxis is not indicated. CODE STATUS: [facility] code. Pedro Araiza MD MTDD
[2017-11-07] MEDS: diltiaZEM 180 mg/24 Hours CD Cap PO SCH (10:00)
[2017-11-07] MEDS: Tiotropium 18 mcg Cap For Inhalation IH SCH (10:04)
[2017-11-07 13:35] VITALS: BP 113/77; PULSE 73; O2SAT 98
[2017-11-07 13:54] VITALS: RESP 20; TEMP 97.8
--- NOTE | 2017-11-07 17:06 | DS ---
ADMITTING DIAGNOSES: Acute on chronic systolic heart failure exacerbation, severe pulmonary hypertension and moderate to severe mitral regurgitation. DISCHARGE DIAGNOSES: Severe pulmonary hypertension, moderate to severe mitral regurgitation and acute on chronic heart failure exacerbation (resolved). SECONDARY DIAGNOSES: IDDM, COPD, AFib, HTN, GERD and anxiety disorder. CONSULTATIONS: Dr. Kim (Cardiology) and Dr. Reddy (Pulmonary and Critical Care Medicine). IMAGING STUDIES: None. DIAGNOSTIC STUDIES: None. PROCEDURES: None. HISTORY OF PRESENT ILLNESS: The patient is a 67 year old man with multiple medical comorbidities including chronic systolic CHF and COPD who was admitted to [facility] for evaluation of a several day history of worsening dyspnea with exertion, bilateral pedal edema and cough with scant clear sputum production. An exhaustive workup during his hospitalization found him to have severe pulmonary hypertension with severe mitral regurgitation. Arrangements were made for transfer to [facility] for surgical intervention of his underlying severe mitral valve disease. White awaiting bed availability at [facility], he was transferred to the TCU for continued IV diuresis and physical therapy. HOSPITAL COURSE: The patient's TCU stay was largely unremarkable. He was actively participating in physical therapy and was diuresing well during his stay. His respiratory symptoms improved significantly but the patient reported not yet being at his baseline. He was advised that his underlying valvular disease is likely contributing to his exertional dyspnea. On TCU day #3 he was accepted for transfer to [facility] for surgical evaluation of his underlying severe mitral regurgitation and was cleared for transfer. CONDITION: Fair, improved. DISPOSITION: [facility]. DISCHARGE MEDICATIONS: Diltiazem CD 180 mg p.o. daily, Lisinopril 5 mg p.o. daily, Lasix 40 mg p.o. b.i.d., Aspirin 81 mg p.o. daily, Metformin 1000 mg p.o. b.i.d., Glipizide 10 mg p.o. b.i.d., Levemir 18 units subcutaneous every p.m., Gabapentin 300 mg p.o. t.i.d. and Nexium 40 mg p.o. daily. FOLLOWUP: The patient to follow up with his PMD within 1 week of discharge from [facility]. The patient to follow up with his ladder operator as scheduled. Pedro Araiza MD ROSMERY
== END 2017-11-07 16:32 | disposition short-term general hospital (02) | DRG 293 ==
LOC: TRCU 18:03
PROVIDERS: ADMIT Student in an Organized Health Care Education/Training Program; ATTEND Student in an Organized Health Care Education/Training Program
PROC: F07Z9ZZ Gait Training/Functional Ambulation Treatment (ICD-10-PCS; principal; 2017-11-05)
PROC: F07M6ZZ Therapeutic Exercise Treatment of Musculoskeletal System - Whole Body (ICD-10-PCS; 2017-11-05)
PROC: F08Z1ZZ Dressing Techniques Treatment (ICD-10-PCS; 2017-11-05)
PROC: F08Z2ZZ Grooming/Personal Hygiene Treatment (ICD-10-PCS; 2017-11-05)
PROC: F08Z4ZZ Home Management Treatment (ICD-10-PCS; 2017-11-05)
DX: I11.0 Hypertensive heart disease with heart failure (principal); I50.23 Acute on chronic systolic (congestive) heart failure; I27.20 Pulmonary hypertension, unspecified; I25.10 Atherosclerotic heart disease of native coronary artery without angina pectoris; I48.2 Chronic atrial fibrillation; I05.9 Rheumatic mitral valve disease, unspecified; F41.9 Anxiety disorder, unspecified; E11.9 Type 2 diabetes mellitus without complications; E78.5 Hyperlipidemia, unspecified; F17.200 Nicotine dependence, unspecified, uncomplicated; J44.9 Chronic obstructive pulmonary disease, unspecified; K21.9 Gastro-esophageal reflux disease without esophagitis; Z75.1 Person awaiting admission to adequate facility elsewhere; Z79.4 Long term (current) use of insulin

== ENCOUNTER 2018-11-04 00:52 | Inpatient (IN) | payer MEDICARE, OTHER ==
[2018-11-04 01:00] VITALS: BMI 30.5
--- NOTE | 2018-11-04 01:01 | ED PDOC ---
Arrival/HPI - General Time Seen by Provider: 11/04/18 00:55 Historian: Patient - History of Present Illness Narrative History of Present Illness (Text): 11/04/18 01:01 Alton Fountain is a 68 year old male, whose past medical history includes atrial fibrillation, diabetes, COPD, CHF, and hypertension, who presents to the Emergency department complaining of shortness of breath. Patient states he been experiencing worsening shortness of breath with associated chills since yesterday. Patient denies any fever, chest pain, abdominal pain, nausea, vomiting, back pain, neck pain, headache, or any other complaints. Symptom Onset: Gradual Symptom Course: Unchanged Activities at Onset: Light Context: Home Past Medical History - Provider Review Nursing Documentation Reviewed: Yes - Infectious Disease Hx of Infectious Diseases: None - Tetanus Immunization Tetanus Immunization: Unknown - Cardiac Hx Cardiac Disorders: Yes Hx Congestive Heart Failure: Yes Hx Hypertension: Yes - Pulmonary Hx Respiratory Disorders: Yes (SMOKED PPD CIGARETTES QUIT) Hx Chronic Obstructive Pulmonary Disease (COPD): Yes - Neurological Hx Neurological Disorder: No - HEENT Hx HEENT Disorder: No - Renal Hx Renal Disorder: No - Endocrine/Metabolic Hx Diabetes Mellitus Type 1: Yes - Hematological/Oncological Hx Blood Disorders: No - Integumentary Hx Dermatological Disorder: No - Musculoskeletal/Rheumatological Hx Falls: No - Gastrointestinal Hx Gastrointestinal Disorders: No - Genitourinary/Gynecological Hx Genitourinary Disorders: No Hx Reproductive Disorders: No - Psychiatric Hx Psychophysiologic Disorder: No Hx Substance Use: No - Surgical History Hx Coronary Stent: Yes - Anesthesia Hx Anesthesia: No Hx Anesthesia Reactions: No Hx Malignant Hyperthermia: No - Suicidal Assessment Feels Threatened In Home Enviroment: No Family/Social History - Physician Review Nursing Documentation Reviewed: Yes Family/Social History: Unknown Family HX Smoking Status: Former Smoker Hx Alcohol Use: Yes (OCCASIONAL) Hx Substance Use: No Substance used: Cocaine Hx Substance Use Treatment: No Allergies/Home Meds Allergies/Adverse Reactions: Allergies No Known Allergies Allergy (Verified 11/04/18 01:23) Home Medications: Home Meds Medication Instructions Recorded Confirmed Gabapentin [Neurontin] 300 mg PO TID 08/28/17 11/04/18 GlipiZIDE [Glucotrol] 5 mg PO BID 08/28/17 11/04/18 metFORMIN [glucOPHAGE] 1,000 mg PO BID 08/28/17 11/04/18 Furosemide [Lasix] 40 mg PO BID 09/27/17 11/04/18 Atorvastatin [Lipitor] 20 mg PO DAILY 11/04/18 11/04/18 Budesonide/Formoterol Fumarate 1 inh PO BID 11/04/18 11/04/18 [Symbicort 80-4.5 Mcg Inhaler] Carvedilol [Coreg] 3.125 mg PO DAILY 11/04/18 11/04/18 Exenatide Microspheres [Bydureon 2 mg 11/04/18 Pen] Guaifenesin [Expectorant] 100 mg PO PRN PRN 11/04/18 11/04/18 Insulin Glargine, Recombina 100 unit 11/04/18 [Lantus] Oseltamivir Phosphate [Tamiflu] 75 mg PO DAILY 11/04/18 11/04/18 Pantoprazole Sodium [Protonix] 40 mg PO DAILY 11/04/18 11/04/18 Potassium Chloride [K-Dur 20 mEq 20 meq PO DAILY 11/04/18 11/04/18 ER Tab] Tiotropium Wauseon Inhaler 1 inh PO DAILY 11/04/18 11/04/18 [Spiriva Inhalation Handihaler Device] Warfarin [Coumadin] 5 mg PO DAILY 11/04/18 11/04/18 Review of Systems - Physician Review All systems were reviewed & negative as marked: Yes - Review of Systems Constitutional: Other (+chills). absent: Fevers Eyes: Normal ENT: Normal Respiratory: SOB Cardiovascular: Normal. absent: Chest Pain Gastrointestinal: Normal. absent: Abdominal Pain, Diarrhea, Nausea, Vomiting Genitourinary Male: Normal. absent: Dysuria, Frequency, Hematuria, Urinary Output Changes Musculoskeletal: Normal. absent: Back Pain, Neck Pain Skin: Normal. absent: Rash Neurological: Normal. absent: Headache, Dizziness Endocrine: Normal Hemo/Lymphatic: Normal Psychiatric: Normal Physical Exam Vital Signs Reviewed: Yes Temperature: Afebrile Blood Pressure: Normal Pulse: Tachycardic Respiratory Rate: Tachypneic Appearance: Positive for: Well-Appearing, Non-Toxic, Comfortable Pain Distress: None Mental Status: Positive for: Alert and Oriented X 3 - Systems Exam Head: Present: Atraumatic, Normocephalic Pupils: Present: PERRL Extroacular Muscles: Present: EOMI Conjunctiva: Present: Normal Mouth: Present: Moist Mucous Membranes Neck: Present: Normal Range of Motion Respiratory/Chest: Present: Rales, Rhonchi, Tachypneic. No: Respiratory Distress, Accessory Muscle Use Cardiovascular: Present: Normal S1, S2, Tachycardic. No: Murmurs Abdomen: No: Tenderness, Distention, Peritoneal Signs Back: Present: Normal Inspection Upper Extremity: Present: Normal Inspection. No: Cyanosis, Edema Lower Extremity: Present: Normal Inspection. No: Edema Neurological: Present: GCS=15, CN II-XII Intact, Speech Normal Skin: Present: Warm, Dry, Normal Color. No: Rashes Psychiatric: Present: Alert, Oriented x 3, Normal Insight, Normal Concentration Medical Decision Making ED Course and Treatment: 11/04/18 01:01 Impression: 68 year old male complaining of shortness of breath and chills. Plan: -- EKG -- CXR -- Labs, cardiac enzymes, BNP -- Duoneb -- Lasix -- Reassess and disposition Prior Visits: Notes and results from previous visits were reviewed. Progress Notes: Reviewed EKG, a fib at 138 bpm. RVR. LAD. RBBB. 11/04/18 01:36 CXR reviewed, shows right upper lobe pneumonia. 11/04/18 02:[address] Solares, who is aware and agrees with plan. Accepts pt in to his service. - RAD Interpretation Sider Mechanic: ED Physician - EKG Interpretation Interpreted by ED Physician: Yes Type: 12 lead EKG - Scribe Statement The provider has reviewed the documentation as recorded by the Dineshibreji Fontaine All medical record entries made by the Dineshibreji were at my direction and personally dictated by me. I have reviewed the chart and agree that the record accurately reflects my personal performance of the history, physical exam, medical decision making, and the department course for this patient. I have also personally directed, reviewed, and agree with the discharge instructions and disposition. Disposition/Present on Arrival - Present on Arrival Any Indicators Present on Arrival: No History of DVT/PE: No History of Uncontrolled Diabetes: Yes Urinary Catheter: No History Surgical Site Infection Following: None - Disposition Have Diagnosis and Disposition been Completed?: Yes Diagnosis: CHF (congestive heart failure), Pneumonia Disposition: HOSPITALIZED Disposition Time: 02:30 Condition: FAIR
[2018-11-04] MEDS ORDERED: Albuterol-Ipratrop 3 mg / 0.5 (3 ml) UD IH STA (01:04)
[2018-11-04 01:29] LABS: BASO # 0.02 K/mm3 (0.0-2.0); BASO % 0.1 % (0.0-3.0); EOS # 0.1 (0.0-0.7); EOS % 0.6 % (1.5-5.0); HEMOGLOBIN 14.4 g/dL (14.0-18.0); LYMPH # 1.5 (1.2-3.4); LYMPH % 9.2 % (22.0-35.0); MEAN CELL VOLUME 94.9 fl (80.0-105.0); MEAN CORPUSCULAR HEMOGLOBIN 29.6 pg (25.0-35.0); MEAN CORPUSCULAR HGB CONC 31.2 g/dl (31.0-37.0); MEAN PLATELET VOLUME 12.2 fl (7.0-11.0); MONO # 0.7 (0.1-0.6); RBC 4.87 10^6/uL (3.5-6.1); RED CELL DISTRIBUTION WIDTH 13.3 % (11.5-14.5); WHITE BLOOD COUNT 16.6 10^3/uL (4.5-11.0)
[2018-11-04] MEDS ORDERED: diltiaZEM IVPB 100mg in NS 100 ML IV PRN (01:33)
[2018-11-04] MEDS ORDERED: Piperacillin/Tazobact 3.375 gm 100 ML IVPB STA (01:37)
[2018-11-04 01:38] LABS: INR 2.76; PARTIAL THROMBOPLASTIN TIME 43.4 Seconds (26.9-38.3); PROTHROMBIN TIME 30.6 SECONDS (9.4-12.5)
[2018-11-04 01:47] LABS: ALB/GLOB RATIO 1.2 (1.1-1.8); ALBUMIN 4.4 g/dL (3.0-4.8); BLOOD UREA NITROGEN 20 mg/dL (7-21); CALCIUM 9.2 mg/dL (8.4-10.5); GFR NON-AFRICAN AMERICAN > 60
[2018-11-04 01:57] LABS: B-TYPE NATRIURETIC PEPTIDE 5780 pg/mL (0-450); TROPONIN I < 0.01 ng/mL
[2018-11-04 02:11] LABS: ALT/SGPT 12 U/L (7-56); AST/SGOT 35 U/L (17-59)
[2018-11-04] MEDS ORDERED: Albuterol-Ipratrop 3 mg / 0.5 (3 ml) UD IH PRN (02:53)
[2018-11-04] MEDS ORDERED: Azithromycin 500MG/NS 250ml 500 MG/250 ML BAG IVPB STA (02:56)
[2018-11-04] MEDS: Insulin Reg-LOW-Coverage SC SCH ×4 (08:17→22:17)
[2018-11-04] MEDS ORDERED: guaiFENesin 100 mg/5 ml Syrup UD PO PRN (08:38)
[2018-11-04] MEDS: Potassium Chloride 20 mEq ER Tab PO SCH (09:25)
[2018-11-04 12:47] LABS: PH,URINE 6.5 (4.7-8.0); URINE APPEARANCE CLEAR (CLEAR); URINE BILIRUBIN NEGATIVE (NEGATIVE); URINE BLOOD NEGATIVE (NEGATIVE); URINE COLOR YELLOW (YELLOW); URINE GLUCOSE (UA) 100 mg/dL (NEGATIVE); URINE LEUKOCYTE ESTERASE NEGATIVE Leu/uL (NEGATIVE); URINE PROTEIN TRACE mg/dL (<30 mg/dL)
[2018-11-04] MEDS: cefTRIAXone 1 gm 1 GM/100 ML BAG IVPB SCH (12:52)
[2018-11-04 12:56] LABS: URINE RBC 0 - 2 /hpf (0-2)
[2018-11-04 12:57] LABS: URINE BACTERIA NEG /hpf; URINE EPITHELIAL CELLS 0 - 2 /hpf (0-5)
[2018-11-04] MEDS: Tiotropium 18 mcg Cap For Inhalation IH SCH (14:42)
--- NOTE | 2018-11-04 14:57 | RAD ---
Date of service: 11/04/2018 HISTORY: SOB COMPARISON: Comparison chest 10/28/2017. TECHNIQUE: 1 view obtained. FINDINGS: LUNGS: Wedge shaped consolidation abutting the minor fissure.. Patchy infiltrate changes seen throughout the right lower and to a lesser degree right upper lobes as well. Suspect mild left basilar atelectasis. PLEURA: No significant pleural effusion identified, no pneumothorax apparent. CARDIOVASCULAR: No aortic atherosclerotic calcification present. Cardiomegaly.. No pulmonary vascular congestion. OSSEOUS STRUCTURES: No significant abnormalities. VISUALIZED UPPER ABDOMEN: Normal. OTHER FINDINGS: None. IMPRESSION: Wedge shaped consolidation abutting the minor fissure.. Patchy infiltrate changes seen throughout the right lower and to a lesser degree right upper lobes as well. Suspect mild left basilar atelectasis.
--- NOTE | 2018-11-04 16:23 | CON ---
DATE: 11/04/2018 LOCATION: The patient is seen earlier today in room 264, bed 1. CHIEF COMPLAINT: Shortness of breath, at times 1-2 days' duration. HISTORY OF PRESENT ILLNESS: This is a 68-year-old male with a history of systolic congestive heart failure, chronic obstructive lung disease, atrial fibrillation, diabetes mellitus, hypertension, coronary artery disease, who was admitted now with shortness of breath and chills. The patient has no abdominal pain, diarrhea, or constipation. No nausea or vomiting. No symptoms. No dysuria or frequency. REVIEW OF SYSTEMS: Reveals the patient's 12-point review of system is performed. PAST MEDICAL HISTORY: Significant for coronary artery disease, chronic obstructive lung disease, systolic congestive heart failure with ejection fraction of 44% from an echo that was done in October 2017, diabetes mellitus, hypertension, atrial fibrillation, and GERD. The patient also had a mitral valve replacement and defibrillator placement approximately 8 months ago. The patient also had severe pulmonary hypertension, ALLERGIES: THE PATIENT HAD NO KNOWN ALLERGIES. MEDICATIONS AT HOME: Include the patient to be on metformin, Coumadin, Protonix, glipizide, gabapentin, furosemide, carvedilol, inhaler. PHYSICAL EXAMINATION: GENERAL: He is in bed. Answering questions appropriately. VITAL SIGNS: Temperature of 99.1, heart rate of 114, respiratory rate was up to 36-39 in the emergency room and down to 21, blood pressure is 107/70. HEENT: Unremarkable. NECK: Supple. LUNGS: Bibasilar crackles. HEART: Normal S1 and S2.] ABDOMEN: Soft and nontender. No rebound or guarding. LABORATORY DATA: Reveals a white count of 16,600, hemoglobin of 14, platelets of 218, the patient has a 86% neutrophils, and coagulation is noted. Chemistry reveals a BUN of 20, creatinine of 1.1, random glucose is 180. Bilirubin is 1.5. Alk phos is 172. BNP is 5780. ASSESSMENT AND PLAN: This is a 68-year-old male with systolic congestive heart failure, chronic obstructive pulmonary disease, atrial fibrillation, diabetes mellitus, hypertension, coronary artery disease, severe pulmonary hypertension, admitted with shortness of breath, leukocytosis, hypoxia, positive infiltrate on unofficially by the emergency room and a chest x-ray on the right upper lobe with severe sepsis with community-acquired pneumonia and with acute systolic congestive heart failure on the top of chronic congestive heart failure, in a patient with an old EKG has a QTC of 527, hesitant to use azithromycin because of a prolonged QTC and because of congestive heart failure hesitant to use Zosyn because of the sodium load. We will discontinue those medications and antibiotics and use ceftriaxone and doxycycline pending blood cultures, sputum cultures, methicillin-resistant Staphylococcus aureus nasal screen, procalcitonin, urine for Legionella antigen, and we are also waiting for a chest x-ray report. We will also order an abdominal ultrasound because of an elevated alk phos to evaluate the gallbladder. We will make further recommendations upon availability. The patient has a history of mitral valve replacement, we will set a defibrillator on his left chest wall, and history of cardiac cath and right breast surgery in the past. We will follow with you. Ferdinand Egan MD
[2018-11-04] MEDS ORDERED: Alum-Mag Hydrox-Simethicone Susp (30 mL) PO PRN (17:17)
--- NOTE | 2018-11-04 18:15 | CON ---
DATE: 11/04/2018 REQUESTING PHYSICIAN: Dr. Araiza. REASON FOR CONSULTATION: Cough and dyspnea. HISTORY: This is a 68-year-old man well known to me with a history of mitral valve disease, status post mitral valve repair, who developed worsening dyspnea and productive cough over the past several days. He was seen as an outpatient and given the antibiotics with no improvement in his symptoms. His symptoms worsened and he presented to the emergency room for further evaluation. Chest x-ray confirmed evidence of right upper lobe pneumonia and antibiotic therapy was started. Last year, he was admitted with decompensated congestive heart failure and found to have moderately severe mitral regurgitation as well as severe pulmonary hypertension and mild LV dysfunction. He underwent mitral valve repair at [facility] by Dr. Poole. His left ventricular function showed some signs of deterioration postoperatively. He has been medically stable until recently. PAST MEDICAL HISTORY: Notable for chronic atrial fibrillation, diabetes, COPD, and hypertension. At the time of his catheterization last year, he had only mild coronary artery disease. MEDICATIONS AT HOME: Include Neurontin, Glucotrol, Glucophage, Lasix 40 mg p.o. b.i.d., Lipitor 20 mg daily, Symbicort, carvedilol 3.125 mg b.i.d., insulin, Tamiflu, Protonix, potassium supplement and warfarin. ALLERGIES: NONE. SOCIAL HISTORY: He is a former smoker. He does drink occasionally. FAMILY HISTORY: Unremarkable for premature heart disease. REVIEW OF SYSTEMS: Ten-point review of systems is notable mainly for problems mentioned above. PHYSICAL EXAMINATION GENERAL: He is a middle-aged man who appears comfortable at rest. VITAL SIGNS: His blood pressure is 106/70 with a pulse of 86 in atrial fibrillation, respiratory rate is 14. He is currently afebrile. HEENT: Normocephalic, atraumatic. NECK: Supple. No JVD noted. CHEST: Scattered rhonchi heard with coarse rales in the right upper lung zone. HEART: PMI displaced laterally. Soft tone is noted and systolic murmur at the left sternal border. ABDOMEN: Soft, nontender, normoactive bowel sounds. EXTREMITIES: No clubbing, cyanosis, edema. SKIN: Warm and dry. PSYCHIATRIC: Normal mood and affect. NEUROLOGIC: Alert and oriented x3. No gross motor or sensory deficits notable. In the emergency room, he did have rapid atrial fibrillation and was placed on IV Cardizem; however, his rate is now controlled. DIAGNOSTIC DATA: White count 16.6, hemoglobin and hematocrit 14.4 and 46.2 with a platelet count of 218,000. INR is 2.76. Potassium 4.4, BUN and creatinine 20 and 1.1. BNP is 5780. Troponin is negative. Initial electrocardiogram reveals atrial fibrillation with rapid ventricular response. Chest x-ray reveals increased cardiac silhouette with mild congestive changes and a dense right upper lobe infiltrate. IMPRESSION 1. Community-acquired pneumonia, currently started on antibiotics. 2. Mildly decompensated congestive heart failure, acute on chronic systolic likely precipitated by pneumonia. 3. Mitral valve disease, status post mitral valve repair. 4. History of tobacco abuse. 5. Chronic obstructive pulmonary disease. 6. History of diabetes. 7. Rest of problems as noted. RECOMMENDATIONS: IV antibiotics should continue. Oral diuretic therapy will continue for now. Carvedilol will be resumed and IV diltiazem discontinued. Maintain his INR between 2.0 and 3.0 as planned. Further recommendations will be made based upon clinical course and results of the above intervention. Thank you for this consultation. We will be happy to follow along as needed. Gurinder Johnson MD MTDD
--- NOTE | 2018-11-04 20:53 | HP ---
HISTORY OF PRESENT ILLNESS: The patient is a 68-year-old man with multiple medical comorbidities including chronic systolic CHF and COPD who presented for evaluation of a 3 day history of dyspnea, malaise and cough productive of clear sputum. The patient was seen in his PMD's office approximately 3 days prior for complaint of fevers, chills, rigors, myalgias and cough. Physical examination was unremarkable and he was advised that he likely has the flu. He was placed on Tamiflu but over the following 36-48 hours he developed worsening cough, congestion and dyspnea. Due to his worsening symptoms, he opted for ED evaluation, In the ED he was afebrile but tachycardic (pulse 130s) and in moderate respiratory distress with a respiratory rate of 36 and utilizing accessory muscles of respiration. Laboratory studies demonstrated leukocytosis and an elevated BNP of 5780. The patient was started on broad-spectrum antibiotics, a Cardizem drip, Lasix and subsequently admitted to the telemetry becerra for continued management of pneumonia and CHF exacerbation. PAST MEDICAL HISTORY: As per HPI, also AFib, hypertension, hyperlipidemia, insulin-dependent diabetes mellitus, GERD, and insomnia. PAST SURGICAL HISTORY: Surgical repair of mitral valve. ALLERGIES: NKDA. MEDICATIONS: Diltiazem CD 180 mg p.o. daily, Lisinopril 5 mg p.o. daily, Lasix 40 mg p.o. b.i.d., Aspirin 81 mg p.o. daily, Metformin 1000 mg p.o. b.i.d., Glipizide 10 mg p.o. b.i.d., Levemir 18 units subcutaneously q.h.s., Gabapentin 300 mg p.o. t.i.d. and Nexium 40 mg p.o. daily. FAMILY HISTORY: Noncontributory. SOCIAL HISTORY: The patient reports a [id number] smoking history and social alcohol use. He denies illicit drug abuse. REVIEW OF SYSTEMS: A 12-point review of systems is negative except as per HPI. PHYSICAL EXAMINATION: VITAL SIGNS: T 98.1, P 91, BP 104/73, RR 18 and O2 saturation 99% on 2 L nasal cannula. GENERAL: No apparent distress. HEENT: PERRL. EOMI. No scleral icterus. No conjunctival pallor. NECK: Supple. Full range of motion. No JVD. No bruits. LUNGS: Few scattered wheeze and rhonchi. CARDIOVASCULAR: Tachycardic, irregularly irregular. Normal S1 and S2. Grade II/ murmur to LLSB. ABDOMEN: Normoactive bowel sounds, soft, nontender, and nondistended. EXTREMITIES: No edema. NEUROLOGIC: Awake, alert, and oriented x 3. No focal motor deficits. LABORATORY DATA: WBC 16.6 with 86% neutrophils, hemoglobin 14, hematocrit 46, and platelets 218. Sodium 140, potassium 4.4, chloride 100, bicarb 25, BUN 20, creatinine 1.1 and glucose 180. BNP 5780. Troponin < 0.01. IMAGING STUDIES: 1. Chest x-ray demonstrated patchy infiltrate to the right lower and upper lobe with mild bibasilar atelectasis. ASSESSMENT: The patient is a 68-year-old man with multiple medical comorbidities who presented for evaluation of a several day history of malaise, dyspnea, and cough productive of clear sputum and was admitted for management of acute on chronic systolic heart failure exacerbation and sepsis with community-acquired pneumonia. PLAN: 1. Acute on chronic systolic heart failure exacerbation. Input from Dr. Johnson noted. The patient remains on Lasix 40 mg p.o. b.i.d. and is diuresing nicely. Continue to monitor strict I&O's. 2. Sepsis secondary to community acquire pneumonia. Input from Dr. Egan noted. Continue with current antimicrobials. Await final culture reports. Monitor for fever and leukocytosis. Procalcitonin level is pending. Legionella is pending. 3. COPD. Continue with supplemental oxygen and bronchodilators as needed. 4. Afib, rate controlled. Continue Carvedilol 3.125 mg p.o. b.i.d. and Coumadin 5 mg p.o. daily. Monitor INR daily with goal INR 2-3. 5. Hypertension. Blood pressure controlled. Continue with current medications. 6. Type 2 diabetes mellitus. Continue Glipizide 10 mg p.o. b.i.d., Metformin 1000 mg p.o. b.i.d and medium dose insulin sliding scale for coverage. 7. GERD. Continue Protonix 40 mg p.o. daily. 8. Prophylaxis. Continue Protonix for GI prophylaxis. The patient remains on Coumadin thus DVT prophylaxis not indicated. CODE STATUS: Full code. Pedro Araiza MD MTDMargret
[2018-11-05 06:35] LABS: BASO # 0.01 K/mm3 (0.0-2.0); BASO % 0.1 % (0.0-3.0); EOS # 0.2 (0.0-0.7); EOS % 2.2 % (1.5-5.0); LYMPH # 1.4 (1.2-3.4); LYMPH % 16.1 % (22.0-35.0); MEAN CELL VOLUME 93.8 fl (80.0-105.0); MEAN CORPUSCULAR HEMOGLOBIN 28.5 pg (25.0-35.0); MEAN CORPUSCULAR HGB CONC 30.4 g/dl (31.0-37.0); MEAN PLATELET VOLUME 12.1 fl (7.0-11.0); MONO # 0.8 (0.1-0.6); MONO % 9.2 % (1.0-6.0); RBC 4.21 10^6/uL (3.5-6.1); RED CELL DISTRIBUTION WIDTH 13.3 % (11.5-14.5); WHITE BLOOD COUNT 8.5 10^3/uL (4.5-11.0)
[2018-11-05 06:42] LABS: PROTHROMBIN TIME 33.9 SECONDS (9.4-12.5)
[2018-11-05 07:12] LABS: ALB/GLOB RATIO 1.1 (1.1-1.8); ALBUMIN 3.6 g/dL (3.0-4.8); ALT/SGPT 12 U/L (7-56); AST/SGOT 21 U/L (17-59); BLOOD UREA NITROGEN 20 mg/dL (7-21); CALCIUM 8.7 mg/dL (8.4-10.5); GFR NON-AFRICAN AMERICAN > 60
--- NOTE | 2018-11-05 07:17 | CARD ---
APPROVED REPORT Date of service: 11/04/2018 EKG Measurement Heart [id number] <Conclusion> Atrial fibrillation with rapid ventricular response Left axis deviation Right bundle branch block Abnormal ECG
[2018-11-05] MEDS: Insulin Reg-LOW-Coverage SC SCH ×4 (08:05→21:44)
[2018-11-05] MEDS: Pantoprazole 40 mg EC Tab PO SCH (08:12)
[2018-11-05] MEDS: Potassium Chloride 20 mEq ER Tab PO SCH (08:12)
[2018-11-05] MEDS: Tiotropium 18 mcg Cap For Inhalation IH SCH (09:26)
[2018-11-05] MEDS: cefTRIAXone 1 gm 1 GM/100 ML BAG IVPB SCH (09:26)
--- NOTE | 2018-11-05 11:09 | US ---
Date of service: 11/05/2018 HISTORY: high alk phos COMPARISON: None. TECHNIQUE: Sonographic evaluation of the abdomen. FINDINGS: LIVER: Measures 21.1 cm. Mildly increased echogenicity of the liver parenchyma. No mass. No intrahepatic bile duct dilatation. Normal flow in the portal vein GALLBLADDER: Unremarkable. No gallstones. 3 mm nonshadowing polyp in the gallbladder. COMMON BILE DUCT: Measures 6 mm. No stones. No dilatation. PANCREAS: Not visualized RIGHT KIDNEY: Measures 12.9 x 5.1 x 4.7cm. Normal echogenicity. No calculus, mass, or hydronephrosis. LEFT KIDNEY: Measures 10.9 x 5.6 x 5.3cm. Normal echogenicity. No calculus, mass, or hydronephrosis. SPLEEN: Normal in size and contour. No mass. 12.8 x 5.0 x 5.0 cm AORTA: No aneurysmal dilatation. IVC: Unremarkable. OTHER FINDINGS: None. IMPRESSION: Unremarkable abdominal sonogram.
[2018-11-05] MEDS: Albuterol-Ipratrop 3 mg / 0.5 (3 ml) UD IH PRN ×2 (11:13→19:36)
--- NOTE | 2018-11-05 11:13 | PN ---
SUBJECTIVE: The patient was seen and examined at bedside on the telemetry becerra. No acute events overnight. He remains afebrile, hemodynamically stable and chest pain free. This morning he reports continued improvement in his respiratory status but does not yet feel back to his baseline. Otherwise he offers no complaints. OBJECTIVE: VITAL SIGNS: T 97.5, P 88, BP 132/78, RR 20, O2 saturation 97% on room air. GENERAL: No apparent distress. HEENT: PERRL, EOMI. No scleral icterus. No conjunctival pallor. NECK: No JVD. LUNGS: Faint scattered wheeze with few rhonchi. CARDIOVASCULAR: Irregularly irregular. Normal S1, S2. Grade II/ murmur to LLSB. ABDOMEN: Normoactive bowel sounds, soft, nontender, nondistended. EXTREMITIES: No edema. NEUROLOGIC: Awake, alert and oriented x 3. No focal motor deficits. LABORATORY DATA: WBC 8.5 with 72% neutrophils, hemoglobin 12, hematocrit 39, platelets 159. Chemistry reviewed and unremarkable. INR 3. Blood cultures with no growth to date. Sputum culture with no growth to date. ASSESSMENT: The patient is a 68-year-old man with multiple medical comorbidities who presented for evaluation of a several day history of malaise, dyspnea and cough productive of clear sputum and was admitted for management of acute on chronic systolic heart failure exacerbation and sepsis with community-acquired pneumonia. PLAN: 1. Acute on chronic systolic heart failure exacerbation. Input from Dr. Johnson noted. The patient remains on Lasix 40 mg p.o. b.i.d. and is diuresing nicely. Continue with current regimen. Continue to monitor strict I&O's. 2. Sepsis secondary to community-acquired pneumonia, improving. Input from Dr. Egan noted. Continue with current antimicrobials. Cultures remain negative to date. Continue to monitor for fever and leukocytosis. 3. COPD. Continue with supplemental oxygen and bronchodilators as needed. 4. Afib. Continue Carvedilol 3.125 mg p.o. b.i.d. and Coumadin 5 mg p.o. daily. Continue to monitor INR with goal 2-3. 5. Hypertension. Blood pressure controlled. Continue current medications. 6. Type 2 diabetes mellitus. Continue Glipizide 10 mg p.o. b.i.d., Metformin 1000 mg p.o. b.i.d. and medium-dose ISS. 7. GERD. Continue Protonix 40 mg p.o. daily. 8. Prophylaxis. Continue Protonix for GI prophylaxis. The patient remains on Coumadin thus DVT prophylaxis not indicated. CODE STATUS: Full Code Pedro Araiza MD MTDD
--- NOTE | 2018-11-05 14:23 | CP.PCM.PCO ---
Physician Communication Note - Physician Communication Note Physician Communication Note: continue antibiotics as per ID, patient tolerating well, repeat labs in am
--- NOTE | 2018-11-05 20:59 | CP.PCM.PN ---
Subjective - Date & Time of Evaluation Date of Evaluation: 11/05/18 Time of Evaluation: 08:25 - Subjective Subjective: Not in distress, no fevers. Objective - Vital Signs/Intake and Output Vital Signs (last 24 hours): Temp Pulse Resp BP Pulse Ox 97.4 F L 91 H 20 123/81 91 L 11/04/18 18:00 11/04/18 18:00 11/04/18 18:00 11/04/18 18:02 11/04/18 05:53 Intake and Output: 11/04/18 11/05/18 18:59 06:59 Intake Total 100 1620 Output Total 450 Balance 100 1170 - Medications Medications: Current Medications Acetaminophen (Tylenol 325mg Tab) 650 mg PO Q4H PRN PRN Reason: Fever >100.5 F Al Hydrox/Mg Hydrox/Simethicone (Maalox Plus 30 Ml) 30 ml PO Q6 PRN PRN Reason: Heartburn Last Admin: 11/04/18 18:01 Dose: 30 ml Albuterol/Ipratropium (Duoneb 3 Mg/0.5 Mg (3 Ml) Ud) 3 ml IH Q4H PRN PRN Reason: Shortness of Breath Atorvastatin Calcium (Lipitor) 20 mg PO DIN [facility] Last Admin: 11/04/18 18:01 Dose: 20 mg Carvedilol (Coreg) 3.125 mg PO BID [facility] Last Admin: 11/04/18 18:02 Dose: 3.125 mg Doxycycline Hyclate (Doryx) 100 mg PO Q12 [facility]; Protocol Stop: 11/09/18 11:46 Last Admin: 11/04/18 21:29 Dose: 100 mg Furosemide (Lasix) 40 mg PO BID [facility] Last Admin: 11/04/18 18:02 Dose: 40 mg Gabapentin (Neurontin) 300 mg PO TID [facility]; Protocol Last Admin: 11/04/18 18:02 Dose: 300 mg Glipizide (Glucotrol) 10 mg PO ACB [facility] Guaifenesin (Robitussin) 100 mg PO Q4H PRN PRN Reason: Cough Ceftriaxone Sodium (Rocephin 1 Gram Ivpb) 1 gm in 100 mls @ 100 mls/hr IVPB DAILY [facility]; Protocol Stop: 11/13/18 11:31 Last Admin: 11/04/18 12:52 Dose: 100 mls/hr Insulin Human Regular (Humulin R Low) 0 units SC ACHS [facility]; Protocol Last Admin: 11/04/18 22:17 Dose: Not Given Metformin HCl (Glucophage) 1,000 mg PO BID [facility] Last Admin: 11/04/18 18:02 Dose: 1,000 mg Pantoprazole Sodium (Protonix Ec Tab) 40 mg PO 0600 [facility] Potassium Chloride (K-Dur 20 Meq Er Tab) 20 meq PO BRK [facility] Last Admin: 11/04/18 09:25 Dose: 20 meq Tiotropium [place] (Spiriva) 18 mcg IH DAILY [facility] Last Admin: 11/04/18 14:42 Dose: 18 mcg Warfarin Sodium (Coumadin) 5 mg PO 1800 [facility]; Protocol Last Admin: 11/04/18 18:02 Dose: 5 mg - Labs Labs: 11/04/18 01:13 11/04/18 01:13 PT 30.6 SECONDS (9.4-12.5) H 11/04/18 01:13 INR 2.76 11/04/18 01:13 APTT 43.4 Seconds (26.9-38.3) H 11/04/18 01:13 - Constitutional Appears: Chronically Ill - Head Exam Head Exam: NORMAL INSPECTION - ENT Exam ENT Exam: Mucous Membranes Moist - Respiratory Exam Respiratory Exam: Decreased Breath Sounds - Cardiovascular Exam Cardiovascular Exam: +S1, +S2 - GI/Abdominal Exam GI & Abdominal Exam: Soft. absent: Tenderness Assessment and Plan - Assessment and Plan (Free Text) Plan: Assessment Severe sepsis due to right sided CAP, on top of acute on chronic systolic heart failure CAD HTN DM pulmonary HTN CAD atrial fibrillation Plan continue Rocephin and Doxycycline day 2 for at least 5-7 days urine Legionella Ag follow up final culture results PCT is 0.35 will continue to monitor clinically
[2018-11-06] MEDS: Albuterol-Ipratrop 3 mg / 0.5 (3 ml) UD IH PRN ×2 (00:59→07:51)
--- NOTE | 2018-11-06 02:12 | PN ---
DATE: 11/05/2018 SUBJECTIVE: The patient is seen sitting in chair on telemetry. He is feeling somewhat better. His cough is improved. He is afebrile. MEDICATIONS: His current medications include carvedilol 3.125 mg b.i.d. He had a warfarin, doxycycline, DuoNeb inhaler, Glucophage, Glucotrol, insulin, Lasix 40 mg b.i.d., potassium, Lipitor, Neurontin, Protonix, Rocephin, and Spiriva. PHYSICAL EXAMINATION: GENERAL: He is a middle-aged male who is comfortable at the present time. VITAL SIGNS: Blood pressure is 132/78 with a pulse of 100 in atrial fibrillation, respirations are 16. He is afebrile. HEENT: No JVD. CHEST: Bilateral rhonchi with rales noted on the right. HEART: Reveals a PMI displaced laterally with a soft tones noted. Systolic murmur was present in the left sternal border. ABDOMEN: Soft, nontender. Normoactive bowel sounds. EXTREMITIES: No edema. DIAGNOSTIC DATA: Potassium 3.8, BUN and creatinine are 20 and 1. White count is 8.5, hemoglobin and hematocrit are 12 and 39.5 with a platelet count of 159,000. INR is 3. IMPRESSION: 1. Right-sided community acquired pneumonia. 2. Chronic atrial fibrillation. 3. History of mitral regurgitation, status post mitral valve repair. 4. Congestive heart failure, acute on chronic, predominantly systolic. 5. History of hypertension, diabetes. RECOMMENDATIONS: His current medications will be continued for now. Spironolactone will be added to his regimen. Potassium replacement will be held for now pending his response to spironolactone use. Followup chest x-ray in several days will be planned. I will follow along, make further recommendations as appropriate. Gurinder Johnson MD
[2018-11-06] MEDS: Pantoprazole 40 mg EC Tab PO SCH (05:27)
[2018-11-06 06:10] LABS: BASO # 0.02 K/mm3 (0.0-2.0); BASO % 0.2 % (0.0-3.0); EOS # 0.2 (0.0-0.7); EOS % 2.3 % (1.5-5.0); HEMOGLOBIN 12.8 g/dL (14.0-18.0); LYMPH # 1.7 (1.2-3.4); LYMPH % 18.9 % (22.0-35.0); MEAN CELL VOLUME 93.7 fl (80.0-105.0); MEAN CORPUSCULAR HGB CONC 30.9 g/dl (31.0-37.0); MEAN PLATELET VOLUME 11.8 fl (7.0-11.0); MONO # 0.6 (0.1-0.6); MONO % 6.5 % (1.0-6.0); RBC 4.42 10^6/uL (3.5-6.1); RED CELL DISTRIBUTION WIDTH 13.2 % (11.5-14.5); WHITE BLOOD COUNT 8.8 10^3/uL (4.5-11.0)
[2018-11-06 06:16] LABS: INR 2.63; PROTHROMBIN TIME 29.7 SECONDS (9.4-12.5)
[2018-11-06 06:49] LABS: ALB/GLOB RATIO 1.2 (1.1-1.8); ALT/SGPT 16 U/L (7-56); AST/SGOT 23 U/L (17-59); BLOOD UREA NITROGEN 21 mg/dL (7-21); GFR NON-AFRICAN AMERICAN > 60
[2018-11-06] MEDS: Insulin Reg-LOW-Coverage SC SCH ×4 (08:28→23:02)
[2018-11-06] MEDS: cefTRIAXone 1 gm 1 GM/100 ML BAG IVPB SCH (09:48)
[2018-11-06] MEDS: Tiotropium 18 mcg Cap For Inhalation IH SCH (09:49)
--- NOTE | 2018-11-06 10:16 | PN ---
SUBJECTIVE: The patient was seen and examined at bedside on the telemetry becerra. No acute events overnight. He remains clinically stable and reports continued improvement in his respiratory status. This morning he does report some congestion and cough intermittently productive of clear sputum but states it is improving and otherwise offers no complaints. OBJECTIVE: VITAL SIGNS: T 98, P 110, BP110/74, RR 20, O2 saturation 96% on room air. GENERAL: No apparent distress. HEENT: PERRL, EOMI. No scleral icterus. No conjunctival pallor. NECK: No JVD. LUNGS: Few scattered wheeze with rhonchi. CARDIOVASCULAR: Tachycardic, irregularly irregular. Normal S1, S2, Grade II/ murmur to LLSB. ABDOMEN: Normoactive bowel sounds, soft, nontender, nondistended. EXTREMITIES: No edema. NEUROLOGIC: Awake, alert and oriented x 3. No focal motor deficits. LABORATORY DATA: WBC 8.8 with 72% neutrophils, hemoglobin 13, hematocrit 41, platelets 180. Sodium 137, potassium 3.9, chloride 100, bicarb 26, BUN 21, creatinine 1, glucose 147. INR 2.6. Blood cultures no growth to date. Sputum culture with no growth to date. ASSESSMENT: The patient is a 68-year-old man with multiple medical comorbidities who presented for evaluation of a several day history of malaise, dyspnea and cough productive of clear sputum and was admitted for management of acute on chronic systolic heart failure exacerbation and sepsis with community-acquired pneumonia. PLAN: 1. Acute on chronic systolic heart failure exacerbation, resolving. Input from Dr. Johnson noted. The patient continues to diurese well and has lost 8lbs since admission. Continue Carvedilol 3.125 mg p.o. b.i.d, Lasix 40 mg p.o. b.i.d. and Aldactone 25 mg p.o. b.i.d. 2. Sepsis secondary to community-acquired pneumonia, improving. Input from Dr. Krishna, noted. The patient remains afebrile and with negative blood cultures. Continue with current antimicrobials to complete a 5-7 day course (today is day #3 of antibiotics). 3. COPD. Continue with supplemental oxygen and bronchodilators as needed. 4. AFib. Continue Carvedilol 3.125 mg p.o. b.i.d. and Coumadin 5 mg p.o. daily. Continue to monitor INR with goal 2-3. 5. Hypertension. Blood pressure controlled. Continue current medications. 6. Type 2 diabetes mellitus. Continue Glipizide 10 mg p.o. b.i.d., Metformin 1000 mg p.o. b.i.d. and medium dose ISS. 7. GERD. Continue Protonix 40 mg p.o. daily. 8. MR s/p repair. 9. Prophylaxis. Continue Protonix for GI prophylaxis. The patient remains on Coumadin thus DVT prophylaxis not indicated. CODE STATUS: Full code. Pedro Araiza MD MTDD
--- NOTE | 2018-11-06 11:47 | PN ---
DATE: 11/06/2018 SUBJECTIVE: The patient is seen sitting in chair, on telemetry. He is feeling better. His cough has improved. He remains in atrial fibrillation with a moderate ventricular rate. CURRENT MEDICATIONS: Include carvedilol 3.125 mg b.i.d., spironolactone 25 mg b.i.d., warfarin, doxycycline, Glucophage, glipizide, insulin, Lasix 40 mg b.i.d., Lipitor 20 mg daily, Neurontin, Protonix, Rocephin, Spiriva, and Xopenex. PHYSICAL EXAMINATION: GENERAL: He is a middle-aged male who appears comfortable at the present time. VITAL SIGNS: His blood pressure is 110/74, pulse 110 in atrial fibrillation, respirations are 14. He is afebrile. HEENT: No JVD. CHEST: Bilateral rhonchi, greater on the right than on the left. HEART: PMI displaced laterally with an irregularly irregular rhythm. ABDOMEN: Soft, nontender. Normoactive bowel sounds. EXTREMITIES: No edema. DIAGNOSTIC DATA: Potassium 3.9, BUN and creatinine are 21 and 1. White count is 8.8, hemoglobin and hematocrit are 12.8 and 41.4, platelet count 180,000. INR is 2.63. IMPRESSION: 1. Community-acquired pneumonia, clinically improved. 2. Chronic atrial fibrillation with suboptimal heart rate control. 3. History of mitral regurgitation, status post mitral valve repair. 4. Congestive heart failure, acute on chronic, predominantly systolic. 5. Diabetes. 6. Hypertension. RECOMMENDATIONS: Carvedilol would be increased the dosing in attempt for better rate control. The rest of his medication should continue unchanged. Maintenance of INR between 2 to 3 is advised. Echocardiogram will be performed while here in the hospital. We will continue to follow and make further recommendations as appropriate. Gurinder Johnson MD
[2018-11-06] MEDS: Levalbuterol 0.63 MG/3 ML Inhal Soln UD IH PRN (13:44)
--- NOTE | 2018-11-06 14:15 | CARD ---
APPROVED REPORT Date of service: 11/06/2018 EXAM: Two-dimensional and M-mode echocardiogram with Doppler and color Doppler. INDICATION Congestive Heart Failure 2D DIMENSIONS Left Atrium (2D)4.4 (1.6-4.0cm)IVSd1.4 (0.7-1.1cm) LVDd3.5 (3.9-5.9cm)PWd1.7 (0.7-1.1cm) M-Mode DIMENSIONS Aortic Root2.00 (2.2-3.7cm)Aortic Cusp Exc.1.30 (1.5-2.0cm) Aortic Valve AoV Peak Bhlcubny374.0cm/Pamela Peak GR.13mmHg Mitral Valve E/A ratio0.0 TDI E/Lateral E'0.0E/Medial E'0.0 Tricuspid Valve TR Peak [id number] [id number] Peak Gr.28mmHg [id number] LEFT VENTRICLE The left ventricle is normal size. There is moderate concentric left ventricular hypertrophy. The ejection fraction is moderately to severely impaired. Septal motion consistent with post-operative state. RIGHT VENTRICLE The right ventricle is normal size. The right ventricular systolic function is normal. ATRIA The left atrium is moderately dilated. The right atrium is mildly dilated. The interatrial septum is intact with no evidence for an atrial septal defect. AORTIC VALVE The aortic valve is moderately thickened. No aortic regurgitation is present. There is no aortic valvular stenosis. MITRAL VALVE Prosthetic mitral valve appears to open well. There are normal prosthetic mitral valve gradients. TRICUSPID VALVE The tricuspid valve is normal in structure. There is mild tricuspid regurgitation. PULMONIC VALVE The pulmonary valve is normal in structure. GREAT VESSELS The aortic root is normal in size. The IVC is normal in size and collapses >50% with inspiration. PERICARDIAL EFFUSION There is no pleural effusion. There is no pericardial effusion. <Conclusion> Biatrial enlargement. Moderate concentric LVH. Moderately severe LV systolic dysfunction with septal dyskinesis and global hypokinesis. Normally functioning bioprosthetic mitral valve. Mild tricuspid regurgitation.
--- NOTE | 2018-11-06 16:27 | CP.PCM.PN ---
<Jeovany Krishna S - Last Filed: 11/06/18 20:55> Objective - Vital Signs/Intake and Output Vital Signs (last 24 hours): Temp Pulse Resp BP Pulse Ox 97.6 F 91 H 20 130/76 96 11/06/18 18:00 11/06/18 18:00 11/06/18 18:00 11/06/18 18:00 11/06/18 05:52 Intake and Output: 11/06/18 11/07/18 18:59 06:59 Intake Total 1400 Balance 1400 - Medications Medications: Current Medications Acetaminophen (Tylenol 325mg Tab) 650 mg PO Q4H PRN PRN Reason: Fever >100.5 F Al Hydrox/Mg Hydrox/Simethicone (Maalox Plus 30 Ml) 30 ml PO Q6 PRN PRN Reason: Heartburn Last Admin: 11/04/18 18:01 Dose: 30 ml Atorvastatin Calcium (Lipitor) 20 mg PO DIN [facility] Last Admin: 11/06/18 17:29 Dose: 20 mg Carvedilol (Coreg) 6.25 mg PO BID [facility] Last Admin: 11/06/18 17:30 Dose: 6.25 mg Doxycycline Hyclate (Doryx) 100 mg PO Q12 [facility]; Protocol Stop: 11/09/18 11:46 Last Admin: 11/06/18 09:49 Dose: 100 mg Furosemide (Lasix) 40 mg PO BID [facility] Last Admin: 11/06/18 17:29 Dose: 40 mg Gabapentin (Neurontin) 300 mg PO TID [facility]; Protocol Last Admin: 11/06/18 17:29 Dose: 300 mg Glipizide (Glucotrol) 10 mg PO ACB [facility] Last Admin: 11/06/18 08:28 Dose: 10 mg Guaifenesin (Robitussin) 100 mg PO Q4H PRN PRN Reason: Cough Home Med (Home Med) 1 unit SC QWK [facility] Ceftriaxone Sodium (Rocephin 1 Gram Ivpb) 1 gm in 100 mls @ 100 mls/hr IVPB DAILY [facility]; Protocol Stop: 11/13/18 11:31 Last Admin: 11/06/18 09:48 Dose: 100 mls/hr Insulin Human Regular (Humulin R Low) 0 units SC ACHS [facility]; Protocol Last Admin: 11/06/18 17:23 Dose: 1 units Levalbuterol HCl (Xopenex) 0.63 mg IH [id number] PRN PRN Reason: Shortness of Breath Last Admin: 11/06/18 13:44 Dose: 0.63 mg Metformin HCl (Glucophage) 1,000 mg PO BID [facility] Last Admin: 11/06/18 17:29 Dose: 1,000 mg Pantoprazole Sodium (Protonix Ec Tab) 40 mg PO 0600 [facility] Last Admin: 11/06/18 05:27 Dose: 40 mg Spironolactone (Aldactone) 25 mg PO BID [facility] Last Admin: 11/06/18 17:28 Dose: 25 mg Tiotropium [place] (Spiriva) 18 mcg IH DAILY [facility] Last Admin: 11/06/18 09:49 Dose: 18 mcg Warfarin Sodium (Coumadin) 5 mg PO 1800 [facility]; Protocol Last Admin: 11/06/18 17:28 Dose: 5 mg - Labs Labs: 11/06/18 05:30 11/06/18 05:30 PT 29.7 SECONDS (9.4-12.5) H 11/06/18 05:30 INR 2.63 11/06/18 05:30 APTT 43.4 Seconds (26.9-38.3) H 11/04/18 01:13 <Henrik Vences - Last Filed: 11/07/18 09:07> Subjective - Date & Time of Evaluation Date of Evaluation: 11/07/18 Time of Evaluation: 08:41 - Subjective Subjective: Podiatry progress not for Dr. Alban Bahena, 68 year old male with past medical history of atrial fibrillation, diabetes, COPD, CHF, and hypertension was seen and evaluated by podiatry due to complaints of painful toenails. Patient states he sees Dr. Bahena every 8-10 weeks for debridement. Patient states he last went 8 weeks ago and has another appointment in 2 weeks. Patient denies any other pedal complaints. Patient states he came to ED due to experiencing worsening shortness of breath with associated chills since yesterday. Patient denies any fever, chest pain, abdominal pain, nausea, vomiting, back pain, neck pain, headache, or any other complaints. Objective - Vital Signs/Intake and Output Vital Signs (last 24 hours): Temp Pulse Resp BP Pulse Ox 97.6 F 105 H 20 110/85 96 11/06/18 12:00 11/06/18 14:00 11/06/18 12:00 11/06/18 12:00 11/06/18 05:52 Intake and Output: 11/06/18 11/06/18 06:59 18:59 Intake Total 480 Balance 480 - Medications Medications: Current Medications Acetaminophen (Tylenol 325mg Tab) 650 mg PO Q4H PRN PRN Reason: Fever >100.5 F Al Hydrox/Mg Hydrox/Simethicone (Maalox Plus 30 Ml) 30 ml PO Q6 PRN PRN Reason: Heartburn Last Admin: 11/04/18 18:01 Dose: 30 ml Atorvastatin Calcium (Lipitor) 20 mg PO DIN [facility] Last Admin: 11/05/18 17:23 Dose: 20 mg Carvedilol (Coreg) 6.25 mg PO BID [facility] Last Admin: 11/06/18 09:49 Dose: 6.25 mg Doxycycline Hyclate (Doryx) 100 mg PO Q12 [facility]; Protocol Stop: 11/09/18 11:46 Last Admin: 11/06/18 09:49 Dose: 100 mg Furosemide (Lasix) 40 mg PO BID [facility] Last Admin: 11/06/18 09:49 Dose: 40 mg Gabapentin (Neurontin) 300 mg PO TID [facility]; Protocol Last Admin: 11/06/18 14:03 Dose: 300 mg Glipizide (Glucotrol) 10 mg PO ACB [facility] Last Admin: 11/06/18 08:28 Dose: 10 mg Guaifenesin (Robitussin) 100 mg PO Q4H PRN PRN Reason: Cough Home Med (Home Med) 1 unit SC QWK [facility] Ceftriaxone Sodium (Rocephin 1 Gram Ivpb) 1 gm in 100 mls @ 100 mls/hr IVPB DAILY [facility]; Protocol Stop: 11/13/18 11:31 Last Admin: 11/06/18 09:48 Dose: 100 mls/hr Insulin Human Regular (Humulin R Low) 0 units SC ACHS [facility]; Protocol Last Admin: 11/06/18 12:53 Dose: 1 units Levalbuterol HCl (Xopenex) 0.63 mg IH [id number] PRN PRN Reason: Shortness of Breath Last Admin: 11/06/18 13:44 Dose: 0.63 mg Metformin HCl (Glucophage) 1,000 mg PO BID [facility] Last Admin: 11/06/18 09:49 Dose: 1,000 mg Pantoprazole Sodium (Protonix Ec Tab) 40 mg PO 0600 [facility] Last Admin: 11/06/18 05:27 Dose: 40 mg Spironolactone (Aldactone) 25 mg PO BID [facility] Last Admin: 11/06/18 09:49 Dose: 25 mg Tiotropium [place] (Spiriva) 18 mcg IH DAILY [facility] Last Admin: 11/06/18 09:49 Dose: 18 mcg Warfarin Sodium (Coumadin) 5 mg PO 1800 [facility]; Protocol Last Admin: 11/05/18 17:23 Dose: 5 mg - Labs Labs: 11/06/18 05:30 11/06/18 05:30 PT 29.7 SECONDS (9.4-12.5) H 11/06/18 05:30 INR 2.63 11/06/18 05:30 APTT 43.4 Seconds (26.9-38.3) H 11/04/18 01:13 - Constitutional Appears: Well, No Acute Distress - Head Exam Head Exam: ATRAUMATIC, NORMOCEPHALIC - Extremities Exam Additional comments: Bilateral Lower Extremity Exam VASC: DP and PT 2/4 bilaterally, CFT less than 3 seconds x 10, TG within normal limits, no edema DERM: nails slightly elongated, no dystophy, no open lesions, no clinical signs of infection NEURO: slightly diminished ORTHO: painful hallucal toenails at the medial and lateral borders, no other deformities, MSK 5/5 - Neurological Exam Neurological Exam: Alert, Awake, Oriented x3 - Psychiatric Exam Psychiatric exam: Normal Affect, Normal Mood Assessment and Plan - Assessment and Plan (Free Text) Assessment: 68 y/o male patient with bilateral painful toenails Plan: Patient seen and evaluated Plan discussed with Dr. Bahena Chart, labs and vitals reviewed- afebrile, absent leukocytosis Aseptic debridement of toenails with sterile nippers Patient tolerated well No other podiatric intervention at this time Please reconsult Podiatry as needed Thank you for the consult
--- NOTE | 2018-11-06 20:57 | CP.PCM.PN ---
Subjective - Date & Time of Evaluation Date of Evaluation: 11/06/18 Time of Evaluation: 06:40 - Subjective Subjective: Comfortable, cough is better, no abdominal pain, no fevers. Objective - Vital Signs/Intake and Output Vital Signs (last 24 hours): Temp Pulse Resp BP Pulse Ox 97.7 F 109 H 19 124/88 97 11/05/18 18:00 11/05/18 18:00 11/05/18 18:00 11/05/18 18:00 11/05/18 05:51 Intake and Output: 11/05/18 11/06/18 18:59 06:59 Intake Total 100 Balance 100 - Medications Medications: Current Medications Acetaminophen (Tylenol 325mg Tab) 650 mg PO Q4H PRN PRN Reason: Fever >100.5 F Al Hydrox/Mg Hydrox/Simethicone (Maalox Plus 30 Ml) 30 ml PO Q6 PRN PRN Reason: Heartburn Last Admin: 11/04/18 18:01 Dose: 30 ml Albuterol/Ipratropium (Duoneb 3 Mg/0.5 Mg (3 Ml) Ud) 3 ml IH [id number] PRN PRN Reason: Shortness of Breath Last Admin: 11/05/18 19:36 Dose: 3 ml Atorvastatin Calcium (Lipitor) 20 mg PO DIN [facility] Last Admin: 11/05/18 17:23 Dose: 20 mg Carvedilol (Coreg) 3.125 mg PO BID [facility] Last Admin: 11/05/18 17:23 Dose: 3.125 mg Doxycycline Hyclate (Doryx) 100 mg PO Q12 [facility]; Protocol Stop: 11/09/18 11:46 Last Admin: 11/05/18 09:27 Dose: 100 mg Furosemide (Lasix) 40 mg PO BID [facility] Last Admin: 11/05/18 17:24 Dose: 40 mg Gabapentin (Neurontin) 300 mg PO TID [facility]; Protocol Last Admin: 11/05/18 17:22 Dose: 300 mg Glipizide (Glucotrol) 10 mg PO ACB [facility] Last Admin: 11/05/18 08:12 Dose: 10 mg Guaifenesin (Robitussin) 100 mg PO Q4H PRN PRN Reason: Cough Ceftriaxone Sodium (Rocephin 1 Gram Ivpb) 1 gm in 100 mls @ 100 mls/hr IVPB DAILY [facility]; Protocol Stop: 11/13/18 11:31 Last Admin: 11/05/18 09:26 Dose: 100 mls/hr Insulin Human Regular (Humulin R Low) 0 units SC ACHS [facility]; Protocol Last Admin: 11/05/18 16:59 Dose: Not Given Metformin HCl (Glucophage) 1,000 mg PO BID [facility] Last Admin: 11/05/18 17:22 Dose: 1,000 mg Pantoprazole Sodium (Protonix Ec Tab) 40 mg PO 0600 [facility] Last Admin: 11/05/18 08:12 Dose: 40 mg Potassium Chloride (K-Dur 20 Meq Er Tab) 20 meq PO BRK [facility] Last Admin: 11/05/18 08:12 Dose: 20 meq Tiotropium [place] (Spiriva) 18 mcg IH DAILY [facility] Last Admin: 11/05/18 09:26 Dose: 18 mcg Warfarin Sodium (Coumadin) 5 mg PO 1800 [facility]; Protocol Last Admin: 11/05/18 17:23 Dose: 5 mg - Labs Labs: 11/05/18 06:00 11/05/18 06:00 PT 33.9 SECONDS (9.4-12.5) H 11/05/18 06:00 INR 3.00 11/05/18 06:00 APTT 43.4 Seconds (26.9-38.3) H 11/04/18 01:13 - Constitutional Appears: Non-toxic, Chronically Ill - Head Exam Head Exam: NORMAL INSPECTION - Respiratory Exam Respiratory Exam: Decreased Breath Sounds - Cardiovascular Exam Cardiovascular Exam: +S1, +S2 - GI/Abdominal Exam GI & Abdominal Exam: Soft. absent: Tenderness Assessment and Plan - Assessment and Plan (Free Text) Plan: Assessment Severe sepsis due to right sided CAP, on top of acute on chronic systolic heart failure, clinically improving CAD HTN DM pulmonary HTN CAD atrial fibrillation Plan continue Rocephin and Doxycycline day 3 for at least 5-7 days urine Legionella Ag is negative cultures have been negative PCT is 0.35 will continue to monitor clinically
[2018-11-07 06:40] LABS: BASO # 0.03 K/mm3 (0.0-2.0); BASO % 0.3 % (0.0-3.0); EOS # 0.3 (0.0-0.7); EOS % 2.7 % (1.5-5.0); HEMOGLOBIN 13.9 g/dL (14.0-18.0); LYMPH # 1.8 (1.2-3.4); LYMPH % 16.7 % (22.0-35.0); MEAN CELL VOLUME 93.6 fl (80.0-105.0); MEAN CORPUSCULAR HEMOGLOBIN 28.8 pg (25.0-35.0); MEAN CORPUSCULAR HGB CONC 30.8 g/dl (31.0-37.0); MEAN PLATELET VOLUME 12.2 fl (7.0-11.0); MONO # 0.7 (0.1-0.6); MONO % 6.8 % (1.0-6.0); RBC 4.82 10^6/uL (3.5-6.1); RED CELL DISTRIBUTION WIDTH 13.2 % (11.5-14.5); WHITE BLOOD COUNT 10.8 10^3/uL (4.5-11.0)
[2018-11-07] MEDS: Pantoprazole 40 mg EC Tab PO SCH (06:49)
[2018-11-07 06:53] LABS: INR 2.03; PROTHROMBIN TIME 22.9 SECONDS (9.4-12.5)
[2018-11-07 07:55] LABS: ALB/GLOB RATIO 1.2 (1.1-1.8); ALBUMIN 4.3 g/dL (3.0-4.8); ALT/SGPT 20 U/L (7-56); AST/SGOT 30 U/L (17-59); BLOOD UREA NITROGEN 23 mg/dL (7-21); GFR NON-AFRICAN AMERICAN > 60
[2018-11-07] MEDS: Levalbuterol 0.63 MG/3 ML Inhal Soln UD IH PRN ×2 (08:18→13:39)
[2018-11-07] MEDS: Insulin Reg-LOW-Coverage SC SCH ×4 (08:25→22:25)
[2018-11-07] MEDS: Tiotropium 18 mcg Cap For Inhalation IH SCH (09:57)
[2018-11-07] MEDS ORDERED: Home Med 1 UNIT SC SCH (10:00)
[2018-11-07] MEDS: cefTRIAXone 1 gm 1 GM/100 ML BAG IVPB SCH (10:00)
--- NOTE | 2018-11-07 11:24 | PN ---
SUBJECTIVE: The patient was seen and examined at bedside on the telemetry becerra. No acute events overnight. He remains afebrile and hemodynamically stable. This morning he feels okay, reports his cough is improving and otherwise offers no complaints. OBJECTIVE: VITAL SIGNS: Temperature 97.6, pulse 83, blood pressure 113/63, respiratory rate 20 and oxygen saturation 98% on room air. GENERAL: No apparent distress. HEENT: PERRL, EOMI. No scleral icterus. No conjunctival pallor. NECK: No JVD. No bruits. LUNGS: Faint scattered wheeze with rhonchi. CARDIOVASCULAR: Irregularly irregular. Normal S1 and S2. Grade II/ murmur to LLSB. ABDOMEN: Normoactive bowel sounds, soft, nontender and nondistended. EXTREMITIES: No edema. NEUROLOGIC: Awake, alert and oriented x 3. No focal motor deficits. LABORATORY DATA: WBC 10.8, hemoglobin 14, hematocrit 45 and platelets 243. Sodium 139, potassium 3.7, chloride 99, bicarb 27, BUN 23, creatinine 1.1, glucose 128. INR 2.03. Blood cultures with no growth to date. Sputum culture with no growth to date. ASSESSMENT: The patient is a 68-year-old man with multiple medical comorbidities who presented for evaluation of a several day history of malaise, dyspnea and cough productive of clear sputum and was admitted for management of acute on chronic systolic heart failure exacerbation and sepsis with community-acquired pneumonia. PLAN: 1. Acute on chronic systolic heart failure exacerbation, resolving. Input from Dr. Johnson noted. The patient continues to diurese nicely and has lost 12 pounds since admission. TTE reviewed. Continue Carvedilol 6.25 mg p.o. b.i.d., Lasix 40 mg p.o. b.i.d. and Aldactone 25 mg p.o. b.i.d. 2. Sepsis secondary to community-acquired pneumonia, resolving. Input from Dr. Krishna noted. The patient remains afebrile and with negative blood cultures. Continue with current antimicrobials to complete a 5-7 course (today is day #4 of antibiotic). 3. COPD. Continue supplemental oxygen and bronchodilators as needed. 4. AFib. Continue Carvedilol 6.25 mg p.o. b.i.d. and Coumadin 5 mg p.o. daily. Continue to monitor INR with goal 2-3. 5. Hypertension. Blood pressure controlled. Continue with current medications. 6. Type 2 diabetes mellitus. Continue Glipizide 10 mg p.o. b.i.d., Metformin 1000 mg p.o. b.i.d. and medium dose insulin sliding scale. 7. GERD. Continue Protonix 40 mg p.o. daily. 8. Mitral regurgitation s/p repair. 9. Prophylaxis. Continue Protonix for GI prophylaxis. The patient remains on Coumadin thus DVT prophylaxis not indicated. CODE STATUS: Full code. Pedro Araiza MD MTDD
--- NOTE | 2018-11-07 23:48 | CP.PCM.PN ---
Subjective - Date & Time of Evaluation Date of Evaluation: 11/07/18 Time of Evaluation: 06:55 - Subjective Subjective: Not in distress, no fevers. Objective - Vital Signs/Intake and Output Vital Signs (last 24 hours): Temp Pulse Resp BP Pulse Ox 97.6 F 91 H 20 130/76 96 11/06/18 18:00 11/06/18 18:00 11/06/18 18:00 11/06/18 18:00 11/06/18 05:52 Intake and Output: 11/06/18 11/07/18 18:59 06:59 Intake Total 1400 Balance 1400 - Medications Medications: Current Medications Acetaminophen (Tylenol 325mg Tab) 650 mg PO Q4H PRN PRN Reason: Fever >100.5 F Al Hydrox/Mg Hydrox/Simethicone (Maalox Plus 30 Ml) 30 ml PO Q6 PRN PRN Reason: Heartburn Last Admin: 11/04/18 18:01 Dose: 30 ml Atorvastatin Calcium (Lipitor) 20 mg PO DIN [facility] Last Admin: 11/06/18 17:29 Dose: 20 mg Carvedilol (Coreg) 6.25 mg PO BID [facility] Last Admin: 11/06/18 17:30 Dose: 6.25 mg Doxycycline Hyclate (Doryx) 100 mg PO Q12 [facility]; Protocol Stop: 11/09/18 11:46 Last Admin: 11/06/18 09:49 Dose: 100 mg Furosemide (Lasix) 40 mg PO BID [facility] Last Admin: 11/06/18 17:29 Dose: 40 mg Gabapentin (Neurontin) 300 mg PO TID [facility]; Protocol Last Admin: 11/06/18 17:29 Dose: 300 mg Glipizide (Glucotrol) 10 mg PO ACB [facility] Last Admin: 11/06/18 08:28 Dose: 10 mg Guaifenesin (Robitussin) 100 mg PO Q4H PRN PRN Reason: Cough Home Med (Home Med) 1 unit SC QWK [facility] Ceftriaxone Sodium (Rocephin 1 Gram Ivpb) 1 gm in 100 mls @ 100 mls/hr IVPB DAILY [facility]; Protocol Stop: 11/13/18 11:31 Last Admin: 11/06/18 09:48 Dose: 100 mls/hr Insulin Human Regular (Humulin R Low) 0 units SC ACHS [facility]; Protocol Last Admin: 11/06/18 17:23 Dose: 1 units Levalbuterol HCl (Xopenex) 0.63 mg IH [id number] PRN PRN Reason: Shortness of Breath Last Admin: 11/06/18 13:44 Dose: 0.63 mg Metformin HCl (Glucophage) 1,000 mg PO BID [facility] Last Admin: 11/06/18 17:29 Dose: 1,000 mg Pantoprazole Sodium (Protonix Ec Tab) 40 mg PO 0600 [facility] Last Admin: 11/06/18 05:27 Dose: 40 mg Spironolactone (Aldactone) 25 mg PO BID [facility] Last Admin: 11/06/18 17:28 Dose: 25 mg Tiotropium [place] (Spiriva) 18 mcg IH DAILY [facility] Last Admin: 11/06/18 09:49 Dose: 18 mcg Warfarin Sodium (Coumadin) 5 mg PO 1800 [facility]; Protocol Last Admin: 11/06/18 17:28 Dose: 5 mg - Labs Labs: 11/06/18 05:30 11/06/18 05:30 PT 29.7 SECONDS (9.4-12.5) H 11/06/18 05:30 INR 2.63 11/06/18 05:30 APTT 43.4 Seconds (26.9-38.3) H 11/04/18 01:13 - Constitutional Appears: Chronically Ill - Head Exam Head Exam: NORMAL INSPECTION - Respiratory Exam Respiratory Exam: Decreased Breath Sounds - Cardiovascular Exam Cardiovascular Exam: +S1, +S2 - GI/Abdominal Exam GI & Abdominal Exam: Soft. absent: Tenderness Assessment and Plan - Assessment and Plan (Free Text) Plan: Assessment Severe sepsis due to right sided CAP, on top of acute on chronic systolic heart failure, clinically improving CAD HTN DM pulmonary HTN CAD atrial fibrillation Plan continue Rocephin and Doxycycline day 4 for at least 5-7 days - can switch to PO Vantin and Doxycycline for another 3 days urine Legionella Ag is negative cultures have been negative PCT is 0.35 will continue to monitor clinically
--- NOTE | 2018-11-08 | PN ---
DATE: 11/07/2018 SUBJECTIVE: Patient is seen sitting in a chair on telemetry. He is currently comfortable. He remains afebrile. His cough has improved. CURRENT MEDICATIONS: Include Aldactone 25 mg b.i.d., carvedilol 6.25 mg b.i.d., warfarin, doxycycline, Glucophage, Glucotrol, Lasix 40 mg b.i.d., Lipitor 20 mg daily, gabapentin, Protonix, Rocephin, Spiriva, and Xopenex. OBJECTIVE: GENERAL: He is a middle aged man who appears comfortable at rest. VITAL SIGNS: Blood pressure 110/64 with a pulse of 86 in atrial fibrillation, respirations are 14. He is afebrile. HEENT: No JVD. CHEST: Few scattered rhonchi heard. HEART: PMI displaced laterally with soft tones noted and systolic murmur at the left sternal border. ABDOMEN: Soft and nontender. Normoactive bowel sounds. EXTREMITIES: No edema. DIAGNOSTIC DATA: White count is 10.8, hemoglobin and hematocrit are 13.9 and 45.1 with a platelet count of 243,000. INR is 2.03. Potassium 3.7. BUN and creatinine 23 and 1.1. IMPRESSION: 1. Community-acquired pneumonia, clinically improved. 2. Chronic atrial fibrillation. 3. History of mitral regurgitation status post mitral valve repair. 4. Congestive heart failure, acute on chronic, systolic, clinically improved. 5. History of diabetes and hypertension. RECOMMENDATIONS: His current medications will continue for now. Maintenance of an INR between 2 and 3 is advised. Hopefully he will be stable for discharge home soon with close outpatient followup. I will continue to follow him as needed. Gurinder Johnson MD MTDD
[2018-11-08 00:07] VITALS: RESP 20
[2018-11-08] MEDS: Pantoprazole 40 mg EC Tab PO SCH (05:46)
[2018-11-08 06:32] VITALS: PULSE 94; TEMP 98.1; O2SAT 97
--- NOTE | 2018-11-08 07:36 | CP.PCM.PN ---
Subjective - Date & Time of Evaluation Date of Evaluation: 11/08/18 Time of Evaluation: 07:34 - Subjective Subjective: Podiatry progress not for Dr. Alban Bahena, 68 year old male with past medical history of atrial fibrillation, diabetes, COPD, CHF, and hypertension was seen and evaluated with Dr. Bahena due to complaints of painful toenails. Patient denies any other pedal complaints. Patient states he came to ED due to experiencing worsening shortness of breath with associated chills since yesterday. Patient denies any fever, chest pain, abdominal pain, nausea, vomiting, back pain, neck pain, headache, or any other complaints. Objective - Vital Signs/Intake and Output Vital Signs (last 24 hours): Temp Pulse Resp BP Pulse Ox 98.1 F 94 H 20 99/59 L 97 11/08/18 06:00 11/08/18 06:00 11/08/18 06:00 11/08/18 06:00 11/08/18 06:00 Intake and Output: 11/08/18 11/08/18 06:59 18:59 Intake Total 2460 Output Total 3 Balance 2457 - Medications Medications: Current Medications Acetaminophen (Tylenol 325mg Tab) 650 mg PO Q4H PRN PRN Reason: Fever >100.5 F Al Hydrox/Mg Hydrox/Simethicone (Maalox Plus 30 Ml) 30 ml PO Q6 PRN PRN Reason: Heartburn Last Admin: 11/04/18 18:01 Dose: 30 ml Atorvastatin Calcium (Lipitor) 20 mg PO DIN [facility] Last Admin: 11/07/18 18:00 Dose: 20 mg Carvedilol (Coreg) 6.25 mg PO BID [facility] Last Admin: 11/07/18 18:01 Dose: 6.25 mg Doxycycline Hyclate (Doryx) 100 mg PO Q12 [facility]; Protocol Stop: 11/09/18 11:46 Last Admin: 11/07/18 21:04 Dose: 100 mg Furosemide (Lasix) 40 mg PO BID [facility] Last Admin: 11/07/18 18:00 Dose: 40 mg Gabapentin (Neurontin) 300 mg PO TID [facility]; Protocol Last Admin: 11/07/18 18:00 Dose: 300 mg Glipizide (Glucotrol) 10 mg PO ACB [facility] Last Admin: 11/07/18 08:25 Dose: Not Given Guaifenesin (Robitussin) 100 mg PO Q4H PRN PRN Reason: Cough Home Med (Home Med) 1 unit SC QWK [facility] Last Admin: 11/07/18 15:36 Dose: 1 unit Ceftriaxone Sodium (Rocephin 1 Gram Ivpb) 1 gm in 100 mls @ 100 mls/hr IVPB DAILY [facility]; Protocol Stop: 11/13/18 11:31 Last Admin: 11/07/18 10:00 Dose: 100 mls/hr Insulin Human Regular (Humulin R Low) 0 units SC ACHS [facility]; Protocol Last Admin: 11/07/18 22:25 Dose: Not Given Levalbuterol HCl (Xopenex) 0.63 mg IH [id number] PRN PRN Reason: Shortness of Breath Last Admin: 11/07/18 13:39 Dose: 0.63 mg Metformin HCl (Glucophage) 1,000 mg PO BID [facility] Last Admin: 11/07/18 18:01 Dose: 1,000 mg Pantoprazole Sodium (Protonix Ec Tab) 40 mg PO 0600 [facility] Last Admin: 11/08/18 05:46 Dose: 40 mg Spironolactone (Aldactone) 25 mg PO BID [facility] Last Admin: 11/07/18 18:00 Dose: 25 mg Tiotropium [place] (Spiriva) 18 mcg IH DAILY [facility] Last Admin: 11/07/18 09:57 Dose: 18 mcg Warfarin Sodium (Coumadin) 5 mg PO 1800 [facility]; Protocol Last Admin: 11/07/18 18:01 Dose: 5 mg - Labs Labs: 11/07/18 06:15 11/07/18 06:10 PT 22.9 SECONDS (9.4-12.5) H 11/07/18 06:15 INR 2.03 11/07/18 06:15 APTT 43.4 Seconds (26.9-38.3) H 11/04/18 01:13 - Constitutional Appears: Well, Non-toxic, No Acute Distress - Head Exam Head Exam: ATRAUMATIC, NORMOCEPHALIC - Extremities Exam Additional comments: Bilateral Lower Extremity Exam VASC: DP and PT 2/4 bilaterally, CFT less than 3 seconds x 10, TG within normal limits, no edema DERM: nails slightly elongated, no dystophy, no open lesions, no clinical signs of infection NEURO: slightly diminished ORTHO: painful hallucal toenails at the medial and lateral borders, no other deformities, MSK 5/5 - Neurological Exam Neurological Exam: Alert, Awake, Oriented x3 - Psychiatric Exam Psychiatric exam: Normal Affect, Normal Mood Assessment and Plan - Assessment and Plan (Free Text) Assessment: 68 y/o male patient with bilateral painful toenails Plan: Patient seen and evaluated with Dr. Bahena Plan discussed with Dr. Bahena Chart, labs and vitals reviewed- afebrile, absent leukocytosis Second Aseptic debridement of right hallucal nail with sterile instruments to alleviate pain at the lateral border Dressed with A&D ointment, and bandaid Patient tolerated well No other podiatric intervention at this time Please re-consult Podiatry as needed Thank you for the consult
[2018-11-08] MEDS: Insulin Reg-LOW-Coverage SC SCH (08:02)
[2018-11-08] MEDS: Levalbuterol 0.63 MG/3 ML Inhal Soln UD IH PRN (08:06)
[2018-11-08] MEDS: cefTRIAXone 1 gm 1 GM/100 ML BAG IVPB SCH (09:13)
[2018-11-08] MEDS: Tiotropium 18 mcg Cap For Inhalation IH SCH (09:13)
[2018-11-08 09:15] VITALS: BP 117/85
--- NOTE | 2018-11-08 10:48 | PN ---
SUBJECTIVE: The patient was seen and examined at bedside on the telemetry becerra. No acute events overnight. He remains afebrile and hemodynamically stable. This morning he feels well, offers no complaints and is stable for discharge home. OBJECTIVE: VITAL SIGNS: Temperature 98.1, pulse 94, blood pressure 99/59, respiratory rate 20, oxygen saturation 97% on room air. GENERAL: No apparent distress. HEENT: PERRL, EOMI. No scleral icterus. No conjunctival pallor. NECK: No JVD. No bruits. LUNGS: Faint scattered wheeze. CARDIOVASCULAR: Irregularly irregular. Normal S1, S2, Grade II/ murmur to LLSB. ABDOMEN: Normoactive bowel sounds, soft, nontender, nondistended. EXTREMITIES: No edema. NEUROLOGIC: Awake, alert and oriented x 3. No focal motor deficits. LABORATORY DATA: Morning labs are pending. ASSESSMENT: The patient is a 68-year-old man with multiple medical comorbidities who presented for evaluation of a several day history of malaise, dyspnea and cough productive of clear sputum and was admitted for management of acute on chronic systolic heart failure exacerbation and sepsis with community-acquired pneumonia. PLAN: 1. Acute on chronic systolic heart failure exacerbation, resolving. Input from Dr. Johnson noted. The patient continues to diurese nicely and reports resolution of his presenting symptoms. Continue Carvedilol 6.25 mg p.o. b.i.d, Lasix 40 mg p.o. b.i.d. and Aldactone 25 mg p.o. b.i.d. 2. Sepsis secondary to community-acquired pneumonia, resolved. Input from Dr. Krishna noted and recommendations have been made for a p.o. regimen of antibiotics in anticipation of discharge. 3. COPD. Continue supplemental oxygen and bronchodilators as needed. 4. AFib. Continue Carvedilol 6.25 mg p.o. b.i.d. and Coumadin 5 mg p.o. daily. 5. Hypertension. Blood pressure controlled. Continue current medications. 6. Type 2 diabetes mellitus. Continue Glipizide 10 mg p.o. b.i.d Metformin 1000 mg p.o. b.i.d. and medium dose insulin sliding scale. 7. GERD. Continue Protonix 40 mg p.o. daily. 8. Mitral regurgitation s/p repair. 9. Prophylaxis. Continue Protonix for GI prophylaxis. The patient remains on Coumadin thus DVT prophylaxis not indicated. CODE STATUS: Full code. Pedro Araiza MD ROSMERY
--- NOTE | 2018-11-08 22:58 | CP.PCM.PN ---
Subjective - Date & Time of Evaluation Date of Evaluation: 11/08/18 Time of Evaluation: 07:05 - Subjective Subjective: No fevers, cough and breathing have significantly improved, not in distress. Objective - Vital Signs/Intake and Output Vital Signs (last 24 hours): Temp Pulse Resp BP Pulse Ox 97.6 F 88 18 122/74 96 11/07/18 18:00 11/07/18 22:00 11/07/18 18:00 11/07/18 18:01 11/06/18 05:52 Intake and Output: 11/07/18 11/08/18 18:59 06:59 Intake Total 1440 Balance 1440 - Medications Medications: Current Medications Acetaminophen (Tylenol 325mg Tab) 650 mg PO Q4H PRN PRN Reason: Fever >100.5 F Al Hydrox/Mg Hydrox/Simethicone (Maalox Plus 30 Ml) 30 ml PO Q6 PRN PRN Reason: Heartburn Last Admin: 11/04/18 18:01 Dose: 30 ml Atorvastatin Calcium (Lipitor) 20 mg PO DIN [facility] Last Admin: 11/07/18 18:00 Dose: 20 mg Carvedilol (Coreg) 6.25 mg PO BID [facility] Last Admin: 11/07/18 18:01 Dose: 6.25 mg Doxycycline Hyclate (Doryx) 100 mg PO Q12 [facility]; Protocol Stop: 11/09/18 11:46 Last Admin: 11/07/18 21:04 Dose: 100 mg Furosemide (Lasix) 40 mg PO BID [facility] Last Admin: 11/07/18 18:00 Dose: 40 mg Gabapentin (Neurontin) 300 mg PO TID [facility]; Protocol Last Admin: 11/07/18 18:00 Dose: 300 mg Glipizide (Glucotrol) 10 mg PO ACB [facility] Last Admin: 11/07/18 08:25 Dose: Not Given Guaifenesin (Robitussin) 100 mg PO Q4H PRN PRN Reason: Cough Home Med (Home Med) 1 unit SC QWK [facility] Last Admin: 11/07/18 15:36 Dose: 1 unit Ceftriaxone Sodium (Rocephin 1 Gram Ivpb) 1 gm in 100 mls @ 100 mls/hr IVPB DAILY [facility]; Protocol Stop: 11/13/18 11:31 Last Admin: 11/07/18 10:00 Dose: 100 mls/hr Insulin Human Regular (Humulin R Low) 0 units SC ACHS [facility]; Protocol Last Admin: 11/07/18 22:25 Dose: Not Given Levalbuterol HCl (Xopenex) 0.63 mg IH [id number] PRN PRN Reason: Shortness of Breath Last Admin: 11/07/18 13:39 Dose: 0.63 mg Metformin HCl (Glucophage) 1,000 mg PO BID [facility] Last Admin: 11/07/18 18:01 Dose: 1,000 mg Pantoprazole Sodium (Protonix Ec Tab) 40 mg PO 0600 [facility] Last Admin: 11/07/18 06:49 Dose: 40 mg Spironolactone (Aldactone) 25 mg PO BID [facility] Last Admin: 11/07/18 18:00 Dose: 25 mg Tiotropium [place] (Spiriva) 18 mcg IH DAILY [facility] Last Admin: 11/07/18 09:57 Dose: 18 mcg Warfarin Sodium (Coumadin) 5 mg PO 1800 [facility]; Protocol Last Admin: 11/07/18 18:01 Dose: 5 mg - Labs Labs: 11/07/18 06:15 11/07/18 06:10 PT 22.9 SECONDS (9.4-12.5) H 11/07/18 06:15 INR 2.03 11/07/18 06:15 APTT 43.4 Seconds (26.9-38.3) H 11/04/18 01:13 - Constitutional Appears: Non-toxic, No Acute Distress - Head Exam Head Exam: NORMAL INSPECTION - Respiratory Exam Respiratory Exam: Decreased Breath Sounds - Cardiovascular Exam Cardiovascular Exam: +S1, +S2 - GI/Abdominal Exam GI & Abdominal Exam: Soft. absent: Tenderness Assessment and Plan - Assessment and Plan (Free Text) Plan: Assessment Severe sepsis due to right sided CAP, on top of acute on chronic systolic heart failure, clinically improving CAD HTN DM pulmonary HTN CAD atrial fibrillation Plan on Rocephin and Doxycycline day 5 for at least 5-7 days - can switch to PO Vantin and Doxycycline for another 2-3 days urine Legionella Ag is negative cultures have been negative PCT is 0.35
--- NOTE | 2018-11-13 00:51 | DS ---
ADMISSION DIAGNOSES: Acute on chronic systolic heart failure exacerbation and sepsis secondary to community-acquired pneumonia. DISCHARGE DIAGNOSES: Acute on chronic systolic heart failure exacerbation and sepsis secondary to community-acquired pneumonia. SECONDARY DIAGNOSES: COPD, Afib, hypertension, type 2 diabetes mellitus, GERD, anxiety disorder, insomnia and mitral regurgitation s/p mitral valve repair. CONSULTATIONS: Dr. Egan (Infectious Disease) and Dr. Gibson (Cardiology). IMAGING STUDIES: 1. Chest x-ray demonstrated a wedge-shaped consolidation to the minor fissure and patchy infiltrate to the right lower and upper lobes. DIAGNOSTIC STUDIES: 1. TTE demonstrated biatrial enlargement with moderate concentric LVH, moderately severe LV systolic dysfunction with septal dyskinesis and global hypokinesis with a normally functioning bioprosthetic mitral valve. PROCEDURES: None. HISTORY OF PRESENT ILLNESS: The patient is a 68-year-old man with multiple medical comorbidities including chronic systolic CHF and COPD who presented for evaluation of a 3 day history of dyspnea, malaise and cough productive of clear sputum. The patient was seen in his PMD's office approximately 3 days prior for complaint of fevers, chills, rigors, myalgias and cough. Physical examination was unremarkable and he was advised that he likely has the flu. He was placed on Tamiflu but over the following 36-48 hours he developed worsening cough, congestion and dyspnea. Due to his worsening symptoms, he opted for ED evaluation. In the ED he was afebrile but tachycardic (pulse 130) and in moderate respiratory distress with a respiratory rate of 36 and utilizing accessory muscles of respiration. Laboratory studies demonstrated leukocytosis and an elevated BNP of 5780. The patient was started on broad-spectrum antibiotics, a Cardizem drip and Lasix before being admitted to the telemetry becerra for continued management of pneumonia and CHF exacerbation. HOSPITAL COURSE: Upon admission to the telemetry becerra he was evaluated by Dr. Egan of Infectious Disease and had his antimicrobials adjusted. He was also evaluated by Dr. Gibson and was restarted on his home medications and Lasix intravenously. Over the following 48 hours he diuresed nicely with significant improvement in his respiratory status. His antibiotics were adjusted based on culture reports and the remainder of his hospital stay was unremarkable. Cardiac enzymes were negative for 3 sets and he continued to remain afebrile, hemodynamically stable and chest-pain free. He demonstrated daily clinical and on hospital days #3 was ambulating around the telemetry becerra without recurrence of his presenting symptoms. Prior to discharge he underwent an echocardiogram and due to the relatively unchanged findings he was cleared for discharge home. CONDITION: Good, improved. DISPOSITION: Home. DISCHARGE MEDICATIONS: Diltiazem CD 180 mg p.o. daily, Lisinopril 5 mg p.o. daily, Lasix 40 mg p.o. b.i.d., Aspirin 81 mg p.o. daily, Metformin 1000 mg p.o. b.i.d., Glipizide 10 mg p.o. b.i.d., Gabapentin 300 mg p.o. t.i.d. and Nexium 40 mg p.o. daily. DISCHARGE INSTRUCTIONS: The patient was advised that if he has any recurrence of his symptoms to present to his PMD or to the nearest ED immediately. FOLLOWUP: The patient is to follow up with his PMD within 1 week of discharge. The patient is to follow up with Dr. Gibson as scheduled. Pedro Araiza MD [id number]
== END 2018-11-08 11:17 | disposition home or self-care (01) | DRG 871 ==
LOC: ED 00:52 → ERH 02:32 → 2RNO 03:51
PROVIDERS: ADMIT Student in an Organized Health Care Education/Training Program; ATTEND Student in an Organized Health Care Education/Training Program
DX: A41.9 Sepsis, unspecified organism (principal); J18.1 Lobar pneumonia, unspecified organism; I50.23 Acute on chronic systolic (congestive) heart failure; J44.0 Chronic obstructive pulmonary disease with (acute) lower respiratory infection; I48.2 Chronic atrial fibrillation; I11.0 Hypertensive heart disease with heart failure; Z79.4 Long term (current) use of insulin; I25.10 Atherosclerotic heart disease of native coronary artery without angina pectoris; Z87.891 Personal history of nicotine dependence; E11.9 Type 2 diabetes mellitus without complications; R09.02 Hypoxemia; I27.20 Pulmonary hypertension, unspecified; R65.20 Severe sepsis without septic shock; Z95.2 Presence of prosthetic heart valve; E78.5 Hyperlipidemia, unspecified; F41.9 Anxiety disorder, unspecified; G47.00 Insomnia, unspecified; I05.9 Rheumatic mitral valve disease, unspecified; K21.9 Gastro-esophageal reflux disease without esophagitis; Z79.01 Long term (current) use of anticoagulants; Z79.51 Long term (current) use of inhaled steroids; Z79.899 Other long term (current) drug therapy; Z95.5 Presence of coronary angioplasty implant and graft